=== PATIENT | female | born 1965 | race Caucasian/White ===

== ENCOUNTER 2021-09-02 14:15 | Outpatient (REF) | payer OTHER, SELFPAY ==
[2021-09-02 15:54] LABS: Binax Internal Control QC Valid; Binax Now Covid-19 Ag Negative (Negative)
== END 2021-09-02 14:16 | disposition home or self-care (01) ==
LOC: HO.LAB 14:15
PROVIDERS: Visit Provider Internal Medicine
DX: Z20.822 Contact with and (suspected) exposure to COVID-19 (principal)
CPT/HCPCS: C9803

== ENCOUNTER 2022-03-17 11:59 | Emergency (ER) | payer OTHER, SELFPAY ==
--- NOTE | ~2022-03-17 | XR_ITS ---
EXAMINATION: XR FOOT, LEFT CLINICAL INFORMATION: Left great toe pain status post bunion surgery COMPARISON: None TECHNIQUE: AP, lateral, and oblique views of the left foot. FINDINGS: Postsurgical changes of the first metatarsophalangeal joint with surgical fixation screw involving the first metatarsal distal metadiaphysis. The distal portion of the screw demonstrates extraosseous placement pointing volar. Plantar calcaneal heel spur. Joint spaces and alignment are maintained. Soft tissue swelling greatest at the dorsum of the midfoot. XR/XR foot LT 2V IMPRESSION: 1. Postsurgical changes of the first metatarsophalangeal joint with surgical fixation screw involving the first metatarsal distal metadiaphysis. The distal portion of the screw demonstrates extraosseous placement pointing volar. 2. Soft tissue swelling greatest at the dorsum of the midfoot.
[2022-03-17 12:02] VITALS: BP 118/78; PULSE 98; O2SAT 96
[2022-03-17 12:10] VITALS: BP 121/69; PULSE 88; RESP 16; TEMP 35.8; O2SAT 99; BMI 29.8
--- NOTE | 2022-03-17 12:20 | ED.SKABFB ---
HPI - Skin/Abscess/Foreign Bdy General Chief complaint: Skin/Abscess/Foreign Body Stated complaint: left foot pain Source: patient Mode of arrival: ambulatory Limitations: no limitations History of Present Illness HPI narrative: 56-year-old female sent from [facility] for evaluation of left big toe. Patient had left big toe bunion removal 4 weeks ago and followed at [facility]. Patient was placed on antibiotics and finished doxycycline 4 days ago. Patient sent from [facility] for evaluation of wound. patient denies any recent trauma, leg swelling, calf pain, chest pain or shortness of breath. Related Data Previous Rx's Medication Instructions Recorded clindamycin HCl 300 mg capsule 300 mg PO Q6H 7 days #28 caps 03/17/22 Allergies Allergy/AdvReac Type Severity Reaction Status Date / Time aspirin [ASA] Allergy Anaphylaxis Verified 03/17/22 12:18 Penicillins Allergy Anaphylaxis Verified 03/17/22 12:18 Sulfa (Sulfonamide Allergy Difficulty Verified 03/17/22 12:18 Antibiotics) Breathing Review of Systems Review of Systems: Left big toe pain. Yes all other systems are reviewed and are negative [facility] Social History Social History Advance Directives: No Advance Directives Information Provided: No Physical Exam Vital Signs: Vital Signs: Last Vital Signs Temp 96.3 F L 03/17/22 14:08 Pulse 83 03/17/22 15:14 Resp 16 03/17/22 15:14 BP 127/77 03/17/22 15:14 Pulse Ox 97 03/17/22 15:14 O2 Del Method 03/17/22 15:14 BMI result Body Mass Index 29.8 Const: General: cooperative, healthy appearing, comfortable, no acute distress, well developed, alert and awake Orientation/consciousness: patient oriented x3 HEENT: Head: Yes normal to inspection, Yes No palpable skull fracture present, Yes normocephalic, Yes atraumatic and No abrasion Eyes: General: appearance normal, both eyes and all related structures Neck: Neck: Yes normal visual inspection, Yes full ROM, Yes no lymphadenopathy, Yes no meningeal signs, Yes trachea midline, Yes supple, No anterior neck swelling and No tender Chest: Chest palpation & inspection: normal inspection of the chest and normal palpation of entire chest wall Resp: Effort & Inspection: normal respiratory effort and able to speak in complete sentences Auscultation: clear to auscultation bilaterally Cardio: Jugular venous distension: no JVD Heart sounds: S1 normal heart sound present and S2 normal heart sound present GI: Inspection: Yes normal to inspection and No abdominal wall ecchymosis Palpation (GI): Soft to palpation, not firm, nontender, no guarding and not rigid : General: No CVA tenderness and Yes no CVA tenderness Back/Spine/Pelvis: Back: no CVA tenderness, No CVA tenderness and No back tenderness Skin: General skin exam: no rashes or lesions noted and elasticity normal Neuro: General: patient oriented x3, gait normal, no meningeal signs and CN's II-XI intact bilaterally Cranial nerves: Yes CN's II-XII intact bilaterally Extrem: Other: Negative for any fluctulance. Negative for Bright red hot erythema. Vascular/motor/nerve exam intact. Area where bunion was removed negative for fluctuance has expectant ecchymotic erythema from surgery. No mass or fluctuance Psych: Appearance: grossly normal, well kempt and not disheveled Course Course Course Narrative: Basic labs foot x-ray ESR CRP ordered. Reevaluation(s) Reevaluation #1: Labs are normal. Negative ESR CRP. X-ray negative for osteomyelitis. Mild displacement of screw. Patient follow-up with outpatient for screw fixation with her surgeon. No need for admission for IV antibiotics. Patient labs and vital sign does not indicate SIRS. Patient's states foot erythema has actuattly improved. Due to still having some warmth will discharge with clindamycin. Time: 15:15 MDM - Skin/Abscess/Foreign Bdy MDM Narrative Medical decision making narrative: Wound infection Lab Data Result diagrams: 03/17/22 13:09 03/17/22 13:09 Labs: Lab Results 03/17/22 03/17/22 03/17/22 Range/Units 13:09 13:09 13:09 WBC 7.7 (4.8-10.8) X10*3/uL RBC 4.12 L (4.20-5.50) X10*6/uL Hgb 12.0 (12.0-16.0) g/dl Hct 37.0 (37.0-47.0) % MCV 89.8 (80.0-98.0) fL MCH 29.1 (27.0-33.0) pg MCHC 32.4 (31.0-35.0) g/dl RDW 13.1 (11.0-16.0) % Plt Count 247 (160-400) X10*3/uL MPV 10.3 (9.4-12.3) fL Immature Gran % (Auto) 0.3 (0.0-0.4) % Neut % (Auto) 64.1 (45-73) % Lymph % (Auto) 29.1 (20-40) % Jenkins % (Auto) 5.3 (2-11) % Eos % (Auto) 0.8 (0-4) % Baso % (Auto) 0.4 (0-2) % Lymph # (Auto) 2.2 (1.2-4.9) X10*3/uL Jenkins # (Auto) 0.4 (0.1-1.2) X10*3/uL Eos # (Auto) 0.1 (0.0-0.4) X10*3/uL Baso # (Auto) 0.0 (0.0-0.2) X10*3/uL Abs Immat Gran (auto) 0.02 (0.00-0.03) X10*3/uL Absolute Neuts (auto) 4.9 (2.0-8.3) x10*3/uL Absolute Nucleated RBC 0.000 (0.0-0.012) X10*3/uL Nucleated RBC % (auto) 0.0 (0.0-0.2) /100WBC ESR 14 (0-20) MM/HR Sodium 145 (135-145) mmol/L Potassium 4.3 (3.3-5.1) mmol/L Chloride 107 (96-108) mmol/L Carbon Dioxide 30 H (22-29) mmol/L Anion Gap 12 (12-20) BUN 14 (9-16) mg/dL Creatinine 0.66 (0.5-1.4) mg/dL Estim Creat Clear Calc 92.1 Estimated GFR > 60 Random Glucose 89 (60-115) mg/dL Calcium 9.1 (8.4-10.2) mg/dL Total Bilirubin 0.3 (0.0-1.0) mg/dL AST 14 (5-31) U/L ALT 17 (0-31) U/L Alkaline Phosphatase 93 (39-117) U/L C-Reactive Protein 0.25 (< or = 0.50) mg/dL Total Protein 6.4 L (6.5-8.0) g/dL Albumin 4.2 (3.5-5.0) g/dL Discharge Plan Discharge Clinical Impression: Wound cellulitis Patient Disposition: Home, Self-Care Instructions: Wound Infection (ED), Cellulitis (ED) Additional Instructions: Your blood work came back normal. Your vital signs are stable. X-ray came back negative for infection the bone. You have mild displacement of screw follow-up with your orthopedic surgeon outpatient at [facility]. Wound does not require IV antibiotics. He will be discharged with clindamycin. Return to the ED for any bright red worsening redness, hotness, increased swelling, pus discharge, foul odor, leg swelling, calf pain, chest pain, shortness of breath, or any other concerning symptoms. Please follow up with your clinical material handler and orthopedic. Prescriptions: New clindamycin HCl 300 mg capsule 300 mg PO Q6H 7 Days Qty: 28 0RF Interventions: ED Discharge Assessment Last Done: 03/17/22 17:04 Discharge Date/Time: 03/17/22 17:05 Print Language: Urdu
[2022-03-17 13:14] LABS: MANUAL DIFF FLAG NO
[2022-03-17 13:16] LABS: Basophils Percent Auto 0.4 % (0-2); Eosinophils Absolute Auto 0.1 X10*3/uL (0.0-0.4); Eosinophils Percent Auto 0.8 % (0-4); Imm Gran Abs Auto 0.02 X10*3/uL (0.00-0.03); Imm Gran Pct Auto 0.3 % (0.0-0.4); Lymphocytes Absolute Auto 2.2 X10*3/uL (1.2-4.9); Lymphocytes Percent Auto 29.1 % (20-40); Mean Corpuscular HGB Conc 32.4 g/dl (31.0-35.0); Mean Corpuscular Hemoglobin 29.1 pg (27.0-33.0); Mean Corpuscular Volume 89.8 fL (80.0-98.0); Mean Platelet Volume 10.3 fL (9.4-12.3); Monocytes Absolute Auto 0.4 X10*3/uL (0.1-1.2); Monocytes Percent Auto 5.3 % (2-11); Neutrophils Absolute Auto 4.9 x10*3/uL (2.0-8.3); Neutrophils Percent Auto 64.1 % (45-73); Platelet Count 247 X10*3/uL (160-400); Red Blood Count 4.12 X10*6/uL (4.20-5.50); Red Cell Distribution Width 13.1 % (11.0-16.0); White Blood Count 7.7 X10*3/uL (4.8-10.8)
[2022-03-17 13:39] LABS: Alanine Aminotransferase 17 U/L (0-31); Albumin Level 4.2 g/dL (3.5-5.0); Alkaline Phosphatase 93 U/L (39-117); Anion Gap 12 (12-20); Aspartate Amino Transferase 14 U/L (5-31); Bilirubin Total 0.3 mg/dL (0.0-1.0); Blood Urea Nitrogen 14 mg/dL (9-16); C Reactive Protein 0.25 mg/dL (< or = 0.50); Calcium 9.1 mg/dL (8.4-10.2); Carbon Dioxide 30 mmol/L (22-29); Chloride 107 mmol/L (96-108); Creatinine Clr Calc Pharmacy 92.1; Estimated Glomerular Filt Rate > 60; Glucose Random 89 mg/dL (60-115); Potassium 4.3 mmol/L (3.3-5.1); Sodium 145 mmol/L (135-145); Total Protein 6.4 g/dL (6.5-8.0)
[2022-03-17 13:52] LABS: Erythrocyte Sedimentation Rate 14 MM/HR (0-20)
[2022-03-17 14:08] VITALS: BP 124/68; PULSE 80; RESP 16; TEMP 35.7; O2SAT 98
[2022-03-17 15:14] VITALS: BP 127/77; PULSE 83; RESP 16; O2SAT 97
== END 2022-03-17 17:05 | disposition home or self-care (01) ==
PROVIDERS: Physician Assistant; Emergency Provider Student in an Organized Health Care Education/Training Program; PCP Family Medicine
DX: L03.032 Cellulitis of left toe (principal); M79.672 Pain in left foot; Z79.899 Other long term (current) drug therapy
CPT/HCPCS: 36415; 73620; 80053; 85025; 85652; 86140; 99283

== ENCOUNTER 2022-09-16 16:35 | Inpatient (IN) | payer OTHER, SELFPAY ==
--- NOTE | ~2022-09-16 | CT_ITS ---
EXAMINATION: CT HEAD WITHOUT CONTRAST CLINICAL INFORMATION: Fainting. COMPARISON: None TECHNIQUE: Contiguous axial imaging was performed from the skull base to vertex without intravenous administration of contrast. This CT examination was performed using dose optimization techniques as appropriate, variously including the following: *Automated exposure control *Adjustment of mA and/or kV according to patient size (this includes techniques or standardized protocols for targeted exams where dose is matched to indication/reason for exam; i.e. extremities or head) *Use of iterative reconstruction technique DLP: 682 mGy-cm FINDINGS: There is no acute intra-axial, extra-axial bleed, masses or midline shift. There is no acute infarction evolution. There is no edema. The lateral ventricles are symmetrical in size and configuration without enlargement. Bone windows reveal no calvarial abnormality. There is no scalp soft tissue abnormality. Bilateral paranasal sinuses and mastoid air cells are well-aerated. CT/CT head/brain wo IV con IMPRESSION: No acute intracranial process seen.
[2022-09-16 16:45] VITALS: BP 104/70; PULSE 87; RESP 16; TEMP 36.6; O2SAT 96
[2022-09-16 16:49] VITALS: BMI 33.6
--- NOTE | 2022-09-16 16:53 | ECG_ITS ---
Test Reason : ANTIPSYCHOTIC USAGE Blood Pressure : / mmHG Vent. Rate : 077 BPM Atrial Rate : 077 BPM P-R Int : 156 ms QRS Dur : 090 ms QT Int : 388 ms P-R-T Axes : 037 -44 -04 degrees QTc Int : 439 ms Normal sinus rhythm Left axis deviation Possible Anterolateral infarct , age undetermined Abnormal ECG No previous ECGs available Referred By: Generic ED Physician Electronically Signed By:FELIX HEBERT
--- NOTE | 2022-09-16 16:58 | ED_ITS ---
HPI - Psych General Chief Complaint: Psychiatric Symptoms <Miladis Stack NP - Last Filed: 09/16/22 23:28> Stated Complaint: section 12 SI + <Miladis Stack NP - Last Filed: 09/16/22 23:28> Time Seen by Provider: 09/16/22 16:56 <Miladis Stack NP - Last Filed: 09/16/22 23:28> Source: patient and EMS <Miladis Stack NP - Last Filed: 09/16/22 23:28> Mode of arrival: EMS <Miladis Stack NP - Last Filed: 09/16/22 23:28> Limitations: no limitations <Miladis Stack NP - Last Filed: 09/16/22 23:28> History of Present Illness HPI Narrative: 56-year-old female presents via EMS under section 12 in the community with suicidal ideation and plan to cut herself with a knife, with command hallucinations. <Miladis Stack NP - Last Filed: 09/16/22 23:28> MD complaint: suicidal ideation, feels depressed and hallucinations <Miladis Stack NP - Last Filed: 09/16/22 23:28> Onset (ago): unknown <Miladis Stack NP - Last Filed: 09/16/22 23:28> Duration: constant <Miladis Stack NP - Last Filed: 09/16/22 23:28> History of same: Yes <Miladis Stack NP - Last Filed: 09/16/22 23:28> Relieving factors: none <Miladis Stack NP - Last Filed: 09/16/22 23:28> Associated psychiatric symptoms: depression, suicidal ideation and auditory hallucinations <Miladis Stack NP - Last Filed: 09/16/22 23:28> Treatments prior to arrival: placed on mental health hold <Miladis Stack NP - Last Filed: 09/16/22 23:28> If self harm: admits thoughts of self harm and has plan <Miladis Stack NP - Last Param ed: 09/16/22 23:28> Related Data Home Medications: Home Medications Medication Instructions Recorded Confirmed aripiprazole 20 mg tablet 1 tab PO BEDTIME depressive 09/16/22 09/17/22 disorder benztropine 1 mg tablet 1 tab PO TID 09/16/22 09/17/22 buspirone 10 mg tablet 1 tab PO BID 09/16/22 09/16/22 desvenlafaxine succinate 50 mg 1 tab PO DAILY 09/16/22 09/17/22 tablet,extended release 24 hr gabapentin 300 mg capsule 1 cap PO TID PRN Anxiety 09/16/22 09/16/22 mirtazapine 30 mg tablet 1 tab PO BEDTIME 09/16/22 09/16/22 oxcarbazepine 300 mg tablet 1 tab PO BID 09/16/22 09/16/22 prazosin 1 mg capsule 2 cap PO BEDTIME 09/16/22 09/16/22 prazosin 5 mg capsule 1 cap PO BEDTIME 09/16/22 09/16/22 risperidone 0.5 mg tablet 1 tab PO BID PRN Anxiety 09/17/22 09/17/22 <Miladis Stack NP - Last Filed: 09/16/22 23:28> Allergies/Adverse Reactions: Allergies Allergy/AdvReac Type Severity Reaction Status Date / Time aspirin [ASA] Allergy Anaphylaxis Verified 03/17/22 12:18 Penicillins Allergy Anaphylaxis Verified 03/17/22 12:18 Sulfa (Sulfonamide Allergy Difficulty Verified 03/17/22 12:18 Antibiotics) Breathing <TRAY Hutchison Last Filed: 09/16/22 23:28> Review of Systems Review of Systems: Constitutional: No Fever, No Chills Cardiovascular: No Chest Pain, No SOB Respiratory: No Cough, No Dyspnea Gastrointestinal: No Nausea, No Vomiting, No Diarrhea, No abdominal Pain Genitourinary: No Dysuria, No Hematuria Musculoskeletal: Note joint pain, No Myalgias, No Joint Swelling Skin: No Skin lacerations, No rash Neuro: No Weakness, No Numbness,No Dizziness, No Headache Psych: Positive suicidal ideation, positive auditory hallucinations, positive depression, positive anxiety <TRAY Hutchison Last Filed: 09/16/22 23:28> Yes all other systems are reviewed and are negative <TRAY Hutchison Last Filed: 09/16/22 23:28> PMFSH Past Medical History Attestation statement: The following information was validated with the patient. <TRAY Hutchison Last Filed: 09/16/22 23:28> Source: old records reviewed <Miladis Stack NP - Last Filed: 09/16/22 23:28> Social History Social History: Social History Alcohol intake: unknown Smoked in Last 30 Days: No Use of substances other than those prescribed or required for medical reasons: Unknown Advance Directives: No Advance Directives Information Provided: No Patient : No <Miladis Stack NP - Last Filed: 09/16/22 23:28> Physical Exam Vital Signs: Vital Signs: Last Vital Signs Temp 97.6 F 09/17/22 06:53 Pulse 88 09/17/22 06:53 Resp 16 09/17/22 06:53 BP 143/93 H 09/17/22 06:53 Pulse Ox 97 09/17/22 06:53 O2 Del Method 09/17/22 06:53 BMI result Body Mass Index 33.6 <Miladis Stack NP - Last Filed: 09/16/22 23:28> Vital Signs: Last Vital Signs Temp 97.6 F 09/17/22 06:53 Pulse 88 09/17/22 06:53 Resp 16 09/17/22 06:53 BP 143/93 H 09/17/22 06:53 Pulse Ox 97 09/17/22 06:53 O2 Del Method 09/17/22 06:53 BMI result Body Mass Index 33.6 <True Montano MD - Last Filed: 09/17/22 07:56> Appearance: Alert. Oriented X3. Flat affect. Eyes: Pupils equal, round and reactive to light. ENT: Pharynx normal. Neck: Normal inspection. Neck supple. CVS: Normal heart rate and rhythm. Pulses normal. Respiratory: No respiratory distress. Breath sounds normal. Abdomen: Soft and nontender. Skin: Skin warm and dry. Normal skin color. Normal skin turgor. Extremities: No lower extremity edema. Gait well-balanced well coordinated. Neuro: No motor deficit. No sensory deficit. Cranial nerves 2-12 intact <Miladis Stack NP - Last Filed: 09/16/22 23:28> Course Course Course Narrative: 56-year-old female presents via EMS on Section 12 from the community with suicidal ideation and plan to kill herself with a knife with command hallucinations. Patient has a flat affect, is only answering questions with yes or no answers. Patient has not had any prior admissions to this facility however is on significant psychiatric medications aripiprazole, benztropine, desvenlafaxine, prazosin, BuSpar, and gabapentin. Plan of care is for labs, and to crisis consult 23:25 patient is medically cleared. Patient is a Section 12 bed search. Physician observation at this time. <Miladis Stack NP - Last Filed: 09/16/22 23:28> Reevaluation(s) Reevaluation #1: Sep 17 07:56 remain stable no event reported by staff, she is on a Section 12 inpatient level of care <True Montano MD - Last Filed: 09/17/22 07:56> Time: 07:56 <True Montano MD - Last Filed: 09/17/22 07:56> Medications Administered Generic Name Dose Route Start Last Admin Trade Name Ingris PRN Reason Stop Dose Admin Aripiprazole 20 mg 09/16/22 21:45 09/16/22 22:16 Aripiprazole 20 Mg Tablet PO 20 mg BEDTIME MALLORY Administration Benztropine Mesylate 1 mg 09/16/22 21:45 09/16/22 22:14 Benztropine Mesylate 1 Mg Tablet PO 1 mg TID MALLORY Administration Buspirone HCl 10 mg 09/16/22 21:45 09/16/22 22:14 Buspirone Hcl 10 Mg Tablet PO 10 mg BID MALLORY Administration Mirtazapine 30 mg 09/16/22 21:45 09/16/22 22:14 Mirtazapine 30 Mg Tablet PO 30 mg BEDTIME MALLORY Administration Oxcarbazepine 300 mg 09/16/22 21:45 09/16/22 22:14 Oxcarbazepine 300 Mg Tablet PO 300 mg BID MALLORY Administration Prazosin HCl 2 mg 09/16/22 21:45 09/16/22 22:14 Prazosin Hcl 1 Mg Capsule PO 2 mg BEDTIME MALLORY Administration Protocol Prazosin HCl 5 mg 09/16/22 21:45 09/16/22 22:14 Prazosin Hcl 5 Mg Capsule PO 5 mg BEDTIME MALLORY Administration Protocol <Miladis Stack NP - Last Filed: 09/16/22 23:28> Medications Administered Generic Name Dose Route Start Last Admin Trade Name Ingris PRN Reason Stop Dose Admin Aripiprazole 20 mg 09/16/22 21:45 09/16/22 22:16 Aripiprazole 20 Mg Tablet PO 20 mg BEDTIME MALLORY Administration Benztropine Mesylate 1 mg 09/16/22 21:45 09/16/22 22:14 Benztropine Mesylate 1 Mg Tablet PO 1 mg TID MALLORY Administration Buspirone HCl 10 mg 09/16/22 21:45 09/16/22 22:14 Buspirone Hcl 10 Mg Tablet PO 10 mg BID MALLORY Administration Mirtazapine 30 mg 09/16/22 21:45 09/16/22 22:14 Mirtazapine 30 Mg Tablet PO 30 mg BEDTIME MALLORY Administration Oxcarbazepine 300 mg 09/16/22 21:45 09/16/22 22:14 Oxcarbazepine 300 Mg Tablet PO 300 mg BID MALLORY Administration Prazosin HCl 2 mg 09/16/22 21:45 09/16/22 22:14 Prazosin Hcl 1 Mg Capsule PO 2 mg BEDTIME MALLORY Administration Protocol Prazosin HCl 5 mg 09/16/22 21:45 09/16/22 22:14 Prazosin Hcl 5 Mg Capsule PO 5 mg BEDTIME MALLORY Administration Protocol <True Montano MD - Last Filed: 09/17/22 07:56> Medical Decision Making Differential Diagnosis Differential Diagnoses: The differential diagnosis associated with the presentation includes <Miladis Stack NP - Last Filed: 09/16/22 23:28> Psychosis, suicidal ideation, depression, auditory hallucinations <Miladis Stack NP - Last Filed: 09/16/22 23:28> Admission/Observation Consideration of admission/observation: Escalation of care including admission/observation considered <Miladis Stack NP - Last Filed: 09/16/22 23:28> Plan of care is for admission section 12 bed search <Miladis Stack NP - Last Filed: 09/16/22 23:28> Consult Healthcare Provider Management of the patient was discussed with: Behavioral Health Provider <Miladis Stack NP - Last Filed: 09/16/22 23:28> Lab Data MDM Lab Attestation statement: I reviewed the patient's lab results. <Miladis Stack NP - Last Filed: 09/16/22 23:28> Result Diagrams: 09/16/22 17:17 09/16/22 17:17 <Miladis Stack NP - Last Filed: 09/16/22 23:28> Labs: Lab Results 09/16/22 09/16/22 09/16/22 Range/Units 17:17 17:17 17:17 WBC 6.9 (4.8-10.8) X10*3/uL RBC 4.35 (4.20-5.50) X10*6/uL Hgb 12.8 (12.0-16.0) g/dl Hct 38.2 (37.0-47.0) % MCV 87.8 (80.0-98.0) fL MCH 29.4 (27.0-33.0) pg MCHC 33.5 (31.0-35.0) g/dl RDW 13.0 (11.0-16.0) % Plt Count 270 (160-400) X10*3/uL MPV 9.9 (9.4-12.3) fL Immature Gran % (Auto) 0.1 (0.0-0.4) % Neut % (Auto) 50.3 (45-73) % Lymph % (Auto) 40.1 H (20-40) % [place] % (Auto) 8.0 (2-11) % Eos % (Auto) 1.2 (0-4) % Baso % (Auto) 0.3 (0-2) % Lymph # (Auto) 2.8 (1.2-4.9) X10*3/uL [place] # (Auto) 0.6 (0.1-1.2) X10*3/uL Eos # (Auto) 0.1 (0.0-0.4) X10*3/uL Baso # (Auto) 0.0 (0.0-0.2) X10*3/uL Abs Immat Gran (auto) 0.01 (0.00-0.03) X10*3/uL Absolute Neuts (auto) 3.5 (2.0-8.3) x10*3/uL Absolute Nucleated RBC 0.000 (0.0-0.012) X10*3/uL Nucleated RBC % (auto) 0.0 (0.0-0.2) /100WBC Sodium 141 (135-145) mmol/L Potassium 4.3 (3.3-5.1) mmol/L Chloride 104 (96-108) mmol/L Carbon Dioxide 29 (22-29) mmol/L Anion Gap 12 (12-20) BUN 17 H (9-16) mg/dL Creatinine 0.73 (0.5-1.4) mg/dL Estim Creat Clear Calc 88.4 Estimated GFR > 60 Random Glucose 88 (60-115) mg/dL Calcium 9.2 (8.4-10.2) mg/dL Total Bilirubin 0.3 (0.0-1.0) mg/dL Direct Bilirubin < 0.2 (0.0-0.5) mg/dL AST 14 (5-31) U/L ALT 18 (0-31) U/L Alkaline Phosphatase 104 (39-117) U/L Total Protein 6.4 L (6.5-8.0) g/dL Albumin 4.2 (3.5-5.0) g/dL Lipase 32 (8-78) U/L Urine Opiates Screen (Not Detect) Urine Fentanyl Screen (Not Detect) Ur Barbiturates Screen (Not Detect) Ur Phencyclidine Scrn (Not Detect) Ur Amphetamines Screen (Not Detect) U Benzodiazepines Scrn (Not Detect) Urine Cocaine Screen (Not Detect) U Marijuana (THC) Screen (Not Detect) Ethyl Alcohol mg/dL COVID-19 ([facility]) Negative (Negative) COVID-19 Clin Com See Note 09/16/22 09/16/22 Range/Units 17:17 17:17 WBC (4.8-10.8) X10*3/uL RBC (4.20-5.50) X10*6/uL Hgb (12.0-16.0) g/dl Hct (37.0-47.0) % MCV (80.0-98.0) fL MCH (27.0-33.0) pg MCHC (31.0-35.0) g/dl RDW (11.0-16.0) % Plt Count (160-400) X10*3/uL MPV (9.4-12.3) fL Immature Gran % (Auto) (0.0-0.4) % Neut % (Auto) (45-73) % Lymph % (Auto) (20-40) % [place] % (Auto) (2-11) % Eos % (Auto) (0-4) % Baso % (Auto) (0-2) % Lymph # (Auto) (1.2-4.9) X10*3/uL [place] # (Auto) (0.1-1.2) X10*3/uL Eos # (Auto) (0.0-0.4) X10*3/uL Baso # (Auto) (0.0-0.2) X10*3/uL Abs Immat Gran (auto) (0.00-0.03) X10*3/uL Absolute Neuts (auto) (2.0-8.3) x10*3/uL Absolute Nucleated RBC (0.0-0.012) X10*3/uL Nucleated RBC % (auto) (0.0-0.2) /100WBC Sodium (135-145) mmol/L Potassium (3.3-5.1) mmol/L Chloride (96-108) mmol/L Carbon Dioxide (22-29) mmol/L Anion Gap (12-20) BUN (9-16) mg/dL Creatinine (0.5-1.4) mg/dL Estim Creat Clear Calc Estimated GFR Random Glucose (60-115) mg/dL Calcium (8.4-10.2) mg/dL Total Bilirubin (0.0-1.0) mg/dL Direct Bilirubin (0.0-0.5) mg/dL AST (5-31) U/L ALT (0-31) U/L Alkaline Phosphatase (39-117) U/L Total Protein (6.5-8.0) g/dL Albumin (3.5-5.0) g/dL Lipase (8-78) U/L Urine Opiates Screen Not Detected (Not Detect) Urine Fentanyl Screen Not Detected (Not Detect) Ur Barbiturates Screen Not Detected (Not Detect) Ur Phencyclidine Scrn Not Detected (Not Detect) Ur Amphetamines Screen Not Detected (Not Detect) U Benzodiazepines Scrn Not Detected (Not Detect) Urine Cocaine Screen Not Detected (Not Detect) U Marijuana (THC) Screen Not Detected (Not Detect) Ethyl Alcohol < 10 mg/dL COVID-19 ([facility]) (Negative) COVID-19 Clin Com <Miladis AmezquitaTRAY traore - Last Filed: 09/16/22 23:28> Lab Results 09/16/22 09/16/22 09/16/22 Range/Units 17:17 17:17 17:17 WBC 6.9 (4.8-10.8) X10*3/uL RBC 4.35 (4.20-5.50) X10*6/uL Hgb 12.8 (12.0-16.0) g/dl Hct 38.2 (37.0-47.0) % MCV 87.8 (80.0-98.0) fL MCH 29.4 (27.0-33.0) pg MCHC 33.5 (31.0-35.0) g/dl RDW 13.0 (11.0-16.0) % Plt Count 270 (160-400) X10*3/uL MPV 9.9 (9.4-12.3) fL Immature Gran % (Auto) 0.1 (0.0-0.4) % Neut % (Auto) 50.3 (45-73) % Lymph % (Auto) 40.1 H (20-40) % [place] % (Auto) 8.0 (2-11) % Eos % (Auto) 1.2 (0-4) % Baso % (Auto) 0.3 (0-2) % Lymph # (Auto) 2.8 (1.2-4.9) X10*3/uL [place] # (Auto) 0.6 (0.1-1.2) X10*3/uL Eos # (Auto) 0.1 (0.0-0.4) X10*3/uL Baso # (Auto) 0.0 (0.0-0.2) X10*3/uL Abs Immat Gran (auto) 0.01 (0.00-0.03) X10*3/uL Absolute Neuts (auto) 3.5 (2.0-8.3) x10*3/uL Absolute Nucleated RBC 0.000 (0.0-0.012) X10*3/uL Nucleated RBC % (auto) 0.0 (0.0-0.2) /100WBC Sodium 141 (135-145) mmol/L Potassium 4.3 (3.3-5.1) mmol/L Chloride 104 (96-108) mmol/L Carbon Dioxide 29 (22-29) mmol/L Anion Gap 12 (12-20) BUN 17 H (9-16) mg/dL Creatinine 0.73 (0.5-1.4) mg/dL Estim Creat Clear Calc 88.4 Estimated GFR > 60 Random Glucose 88 (60-115) mg/dL Calcium 9.2 (8.4-10.2) mg/dL Total Bilirubin 0.3 (0.0-1.0) mg/dL Direct Bilirubin < 0.2 (0.0-0.5) mg/dL AST 14 (5-31) U/L ALT 18 (0-31) U/L Alkaline Phosphatase 104 (39-117) U/L Total Protein 6.4 L (6.5-8.0) g/dL Albumin 4.2 (3.5-5.0) g/dL Lipase 32 (8-78) U/L Urine Opiates Screen (Not Detect) Urine Fentanyl Screen (Not Detect) Ur Barbiturates Screen (Not Detect) Ur Phencyclidine Scrn (Not Detect) Ur Amphetamines Screen (Not Detect) U Benzodiazepines Scrn (Not Detect) Urine Cocaine Screen (Not Detect) U Marijuana (THC) Screen (Not Detect) Ethyl Alcohol mg/dL COVID-19 ([facility]) Negative (Negative) COVID-19 Clin Com See Note 09/16/22 09/16/22 Range/Units 17:17 17:17 WBC (4.8-10.8) X10*3/uL RBC (4.20-5.50) X10*6/uL Hgb (12.0-16.0) g/dl Hct (37.0-47.0) % MCV (80.0-98.0) fL MCH (27.0-33.0) pg MCHC (31.0-35.0) g/dl RDW (11.0-16.0) % Plt Count (160-400) X10*3/uL MPV (9.4-12.3) fL Immature Gran % (Auto) (0.0-0.4) % Neut % (Auto) (45-73) % Lymph % (Auto) (20-40) % [place] % (Auto) (2-11) % Eos % (Auto) (0-4) % Baso % (Auto) (0-2) % Lymph # (Auto) (1.2-4.9) X10*3/uL [place] # (Auto) (0.1-1.2) X10*3/uL Eos # (Auto) (0.0-0.4) X10*3/uL Baso # (Auto) (0.0-0.2) X10*3/uL Abs Immat Gran (auto) (0.00-0.03) X10*3/uL Absolute Neuts (auto) (2.0-8.3) x10*3/uL Absolute Nucleated RBC (0.0-0.012) X10*3/uL Nucleated RBC % (auto) (0.0-0.2) /100WBC Sodium (135-145) mmol/L Potassium (3.3-5.1) mmol/L Chloride (96-108) mmol/L Carbon Dioxide (22-29) mmol/L Anion Gap (12-20) BUN (9-16) mg/dL Creatinine (0.5-1.4) mg/dL Estim Creat Clear Calc Estimated GFR Random Glucose (60-115) mg/dL Calcium (8.4-10.2) mg/dL Total Bilirubin (0.0-1.0) mg/dL Direct Bilirubin (0.0-0.5) mg/dL AST (5-31) U/L ALT (0-31) U/L Alkaline Phosphatase (39-117) U/L Total Protein (6.5-8.0) g/dL Albumin (3.5-5.0) g/dL Lipase (8-78) U/L Urine Opiates Screen Not Detected (Not Detect) Urine Fentanyl Screen Not Detected (Not Detect) Ur Barbiturates Screen Not Detected (Not Detect) Ur Phencyclidine Scrn Not Detected (Not Detect) Ur Amphetamines Screen Not Detected (Not Detect) U Benzodiazepines Scrn Not Detected (Not Detect) Urine Cocaine Screen Not Detected (Not Detect) U Marijuana (THC) Screen Not Detected (Not Detect) Ethyl Alcohol < 10 mg/dL COVID-19 ([facility]) (Negative) COVID-19 Clin Com <True Montano MD - Last Filed: 09/17/22 07:56> Independent Interpretation I performed an independent interpretation of an: EKG <Miladis Stack NP - Last Filed: 09/16/22 23:28> Interpretation: Normal sinus rhythm Left axis deviation Possible Anterolateral infarct , age undetermined Abnormal ECG No previous ECGs available Vent. rate 77 BPM OH interval 156 ms QRS duration 90 ms QT/QTc 388/439 ms P-R-T axes 37 -44 -4 16-SEP-2022 17:37:07 <Miladis tSack NP - Last Filed: 09/16/22 23:28> External Record Review External record reviewed: Outpatient record <Miladis Stack NP - Last Filed: 09/16/22 23:28> Social Determinants Patient?s care significantly limited by Social Determinants of Health including: Other Social Determinant of Health <Miladis Stack NP - Last Filed: 09/16/22 23:28> Discharge Plan Discharge Clinical Impression: Acute psychosis, Depression <Miladis Stack NP - Last Filed: 09/16/22 23:28> Patient Disposition: Still a Patient <Miladis Stack NP - Last Filed: 09/16/22 23:28> Prescriptions: No Action prazosin 1 mg capsule 2 cap PO BEDTIME oxcarbazepine 300 mg tablet 1 tab PO BID prazosin 5 mg capsule 1 cap PO BEDTIME mirtazapine 30 mg tablet 1 tab PO BEDTIME buspirone 10 mg tablet 1 tab PO BID benztropine 1 mg tablet 1 tab PO TID gabapentin 300 mg capsule 1 cap PO TID PRN (Reason: Anxiety) aripiprazole 20 mg tablet 1 tab PO BEDTIME desvenlafaxine succinate 50 mg tablet extended release 24 hr 1 tab PO DAILY risperidone 0.5 mg tablet 1 tab PO BID PRN (Reason: Anxiety) <Miladis Stack NP - Last Filed: 09/16/22 23:28> Interventions: [place]-Suicide Risk Severity Scale Last Done: 09/17/22 05:55 <Miladis Stack NP - Last Filed: 09/16/22 23:28>
[2022-09-16 17:22] LABS: MANUAL DIFF FLAG NO
[2022-09-16 17:30] LABS: Basophils Percent Auto 0.3 % (0-2); Eosinophils Absolute Auto 0.1 X10*3/uL (0.0-0.4); Eosinophils Percent Auto 1.2 % (0-4); Hematocrit 38.2 % (37.0-47.0); Hemoglobin 12.8 g/dl (12.0-16.0); Imm Gran Abs Auto 0.01 X10*3/uL (0.00-0.03); Imm Gran Pct Auto 0.1 % (0.0-0.4); Lymphocytes Absolute Auto 2.8 X10*3/uL (1.2-4.9); Lymphocytes Percent Auto 40.1 % (20-40); Mean Corpuscular HGB Conc 33.5 g/dl (31.0-35.0); Mean Corpuscular Hemoglobin 29.4 pg (27.0-33.0); Mean Corpuscular Volume 87.8 fL (80.0-98.0); Mean Platelet Volume 9.9 fL (9.4-12.3); Monocytes Absolute Auto 0.6 X10*3/uL (0.1-1.2); Neutrophils Absolute Auto 3.5 x10*3/uL (2.0-8.3); Neutrophils Percent Auto 50.3 % (45-73); Platelet Count 270 X10*3/uL (160-400); Red Blood Count 4.35 X10*6/uL (4.20-5.50); White Blood Count 6.9 X10*3/uL (4.8-10.8)
[2022-09-16 17:42] LABS: Amphetamine Screen Urine Not Detected (Not Detect); Barbiturates, Urine Not Detected (Not Detect); Benzodiazepines Screen Urine Not Detected (Not Detect); Cannabinoid Screen Urine Not Detected (Not Detect); Cocaine Screen Urine Not Detected (Not Detect); Fentanyl, urine Not Detected (Not Detect); Opiate Screen Urine Not Detected (Not Detect); Phencyclidine Screen Urine Not Detected (Not Detect)
[2022-09-16 17:50] LABS: Alanine Aminotransferase 18 U/L (0-31); Albumin Level 4.2 g/dL (3.5-5.0); Alkaline Phosphatase 104 U/L (39-117); Anion Gap 12 (12-20); Aspartate Amino Transferase 14 U/L (5-31); Bilirubin Direct < 0.2 mg/dL (0.0-0.5); Bilirubin Total 0.3 mg/dL (0.0-1.0); Blood Urea Nitrogen 17 mg/dL (9-16); Calcium 9.2 mg/dL (8.4-10.2); Carbon Dioxide 29 mmol/L (22-29); Chloride 104 mmol/L (96-108); Creatinine Clr Calc Pharmacy 88.4; Estimated Glomerular Filt Rate > 60; Ethanol < 10 mg/dL; Glucose Random 88 mg/dL (60-115); Lipase 32 U/L (8-78); Potassium 4.3 mmol/L (3.3-5.1); Sodium 141 mmol/L (135-145); Total Protein 6.4 g/dL (6.5-8.0)
[2022-09-16 18:12] LABS: COVID-19 Test Negative (Negative); IDNOW Serial# BCCEAD1C
[2022-09-16] MEDS: busPIRone HCl 10 MG TABLET PO (22:14)
[2022-09-16] MEDS: Benztropine Mesylate 1 MG TABLET PO (22:14)
[2022-09-16] MEDS: Prazosin HCL 1 MG CAPSULE 2 MG PO (22:14)
[2022-09-16] MEDS: OXcarbazepine 300 MG TABLET PO (22:14)
[2022-09-16] MEDS: Prazosin HCL 5 MG CAPSULE PO (22:14)
[2022-09-16] MEDS: Mirtazapine 30 MG TABLET PO (22:14)
[2022-09-16] MEDS: ARIPiprazole 20 MG TABLET PO (22:16)
[2022-09-16 22:19] VITALS: BP 109/70; PULSE 69; RESP 17; TEMP 36.4; O2SAT 95
--- NOTE | 2022-09-17 06:00 | PC.NURSE ---
Patient slept though the night, no distress observed/reported, behavior appropriate and non concerning, patient was assessed by [facility] in the community/disposition is section 12 inpatient bed search, patient contracted fro the safety, med rec completed/medication compliant, VSS, will continue to monitor
[2022-09-17 06:53] VITALS: BP 143/93; PULSE 88; RESP 16; TEMP 36.4; O2SAT 97
--- NOTE | 2022-09-17 07:02 | PC.NURSE ---
Patient sleeping no distress noted will CTM
--- NOTE | 2022-09-17 07:24 | PHA.MEDREC ---
Pharmacy Consult ? Medication Reconciliation Pharmacy has completed the medication reconciliation. Reviewed med rec done by nursing
[2022-09-17] MEDS: busPIRone HCl 10 MG TABLET PO ×2 (08:07→20:20)
[2022-09-17] MEDS: Benztropine Mesylate 1 MG TABLET PO ×3 (08:07→20:17)
[2022-09-17] MEDS: OXcarbazepine 300 MG TABLET PO ×2 (08:07→20:17)
--- NOTE | 2022-09-17 08:09 | PC.NURSE ---
Patient awake behavior appropriate flat affect noted mostly yes no answers to questions no distress noted will CTM
[2022-09-17] MEDS: Prazosin HCL 5 MG CAPSULE PO (20:16)
[2022-09-17] MEDS: Prazosin HCL 1 MG CAPSULE 2 MG PO (20:16)
[2022-09-17] MEDS: Mirtazapine 30 MG TABLET PO (20:16)
[2022-09-17] MEDS: ARIPiprazole 20 MG TABLET PO (20:20)
[2022-09-17 20:23] VITALS: BP 120/79; PULSE 89; RESP 18; TEMP 37.1; O2SAT 95
[2022-09-18 05:41] VITALS: BP 146/94; PULSE 91; RESP 16; TEMP 36.8; O2SAT 98
--- NOTE | 2022-09-18 07:10 | PC.NURSE ---
Patient slept though the night, no distress observed/reported, behavior pleasant and non concerning, medication compliant, disposition per care team is section 12 inpatient bed search, VSS, will continue to monitor
[2022-09-18] MEDS: Benztropine Mesylate 1 MG TABLET PO ×3 (08:35→20:42)
[2022-09-18] MEDS: busPIRone HCl 10 MG TABLET PO ×2 (08:35→20:42)
[2022-09-18] MEDS: OXcarbazepine 300 MG TABLET PO ×2 (08:35→20:42)
[2022-09-18] MEDS: Gabapentin 300 MG CAPSULE PO (08:42)
--- NOTE | 2022-09-18 10:27 | PC.NURSE ---
PT WATCHING TV. BESEARCH CONTINUES. SHOWERED. CALM AND COOPERATIVE
--- NOTE | 2022-09-18 11:42 | MHC.CARE ---
[facility] inpt bedsearch exhausted.
[2022-09-18 20:00] VITALS: BP 147/87; PULSE 86; RESP 18; TEMP 36.2; O2SAT 95
[2022-09-18] MEDS: Prazosin HCL 5 MG CAPSULE PO (20:41)
[2022-09-18] MEDS: Mirtazapine 30 MG TABLET PO (20:42)
[2022-09-18] MEDS: Prazosin HCL 1 MG CAPSULE 2 MG PO (20:42)
[2022-09-18] MEDS: ARIPiprazole 20 MG TABLET PO (21:08)
[2022-09-19 04:43] VITALS: BP 143/84; PULSE 82; RESP 17; TEMP 36.3; O2SAT 98
[2022-09-19 07:31] VITALS: BP 125/74; PULSE 86; RESP 12; TEMP 36.9; O2SAT 98
[2022-09-19] MEDS: OXcarbazepine 300 MG TABLET PO ×2 (09:39→21:14)
[2022-09-19] MEDS: busPIRone HCl 10 MG TABLET PO ×2 (09:39→21:14)
[2022-09-19] MEDS: Benztropine Mesylate 1 MG TABLET PO ×3 (09:39→21:14)
[2022-09-19 16:40] VITALS: BP 135/84; PULSE 95; RESP 14; TEMP 36.9; O2SAT 99
[2022-09-19] MEDS: Gabapentin 300 MG CAPSULE PO (17:18)
--- NOTE | 2022-09-19 18:42 | PC.ADMIT ---
PT is a 56 year old bilingual (serbian/bulgarian) speaking female that arrived on this unit at 16:28 from the [facility]. PT was assessed @ her home by JHONNYN and then brought to the ER after her family reports increased irritability at home and confusion/anxiety related to missing a court date that never existed. Of note, pt is psychotic at baseline. PT is visibly anxious, flat and difficult to engage for admission process, alert and oriented x 2 ( can not tell me which hospital she is at). PT reports command hallucinations telling her to cut herself with a knife. PT has a hx of requiring IPLOC with the most recent in Apr 11 at [facility]. PT reports passive SI w/ no plan, denies HI and VH. COVID neg, tox screen neg, VS stable, pt oriented to unit. PT is a non smoker and has already received her flu shot this season.
[2022-09-19 21:13] VITALS: BP 128/76; PULSE 75; RESP 14
[2022-09-19] MEDS: Prazosin HCL 5 MG CAPSULE PO (21:14)
[2022-09-19] MEDS: ARIPiprazole 20 MG TABLET PO (21:14)
[2022-09-19] MEDS: Prazosin HCL 1 MG CAPSULE 2 MG PO (21:14)
[2022-09-19] MEDS: Mirtazapine 30 MG TABLET PO (21:14)
[2022-09-20 08:45] VITALS: BP 107/67; PULSE 96; RESP 18; TEMP 36.4; O2SAT 97
[2022-09-20 09:40] LABS: Estimated Average Glucose 111 mg/dL; Hemoglobin A1c % 5.5 %
[2022-09-20] MEDS: OXcarbazepine 300 MG TABLET PO ×2 (09:54→19:48)
[2022-09-20] MEDS: Benztropine Mesylate 1 MG TABLET PO ×3 (09:54→19:48)
[2022-09-20] MEDS: busPIRone HCl 10 MG TABLET PO ×2 (09:54→19:48)
[2022-09-20 10:31] LABS: Cholesterol 247 mg/dL; HDL Cholesterol 44 mg/dL; LDL Cholesterol Calculated 180 mg/dl; Magnesium 1.8 mg/dL (1.6-2.6); Triglycerides 118 mg/dL
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
[2022-09-20 10:40] LABS: Folate 17.4 ng/mL (> or = 4.0); Free T4 (Free Thyroxine) 0.86 ng/dL (0.71-1.85); Thyroid Stimulating Hormone 1.73 uIU/mL (0.32-4.0); Vitamin B12 502 pg/mL (200-900)
[2022-09-20 19:40] VITALS: BP 144/85; PULSE 75; TEMP 36.3; O2SAT 99
[2022-09-20] MEDS: OLANZapine 5 MG TABLET 25 MG PO (19:46)
[2022-09-20] MEDS: Mirtazapine 30 MG TABLET PO (19:48)
[2022-09-20] MEDS: Prazosin HCL 1 MG CAPSULE 2 MG PO (19:49)
[2022-09-21] MEDS: Benztropine Mesylate 1 MG TABLET PO ×3 (08:07→20:42)
[2022-09-21] MEDS: busPIRone HCl 10 MG TABLET PO ×2 (08:07→20:42)
[2022-09-21] MEDS: OXcarbazepine 300 MG TABLET PO ×2 (08:07→20:42)
[2022-09-21 08:09] VITALS: BP 110/81; PULSE 92; RESP 16; TEMP 36.8; O2SAT 99
[2022-09-21] MEDS: Acetaminophen 325 MG TABLET 650 MG PO ×2 (13:06→18:57)
[2022-09-21] MEDS: Milk of Magnesia 30 ML ORAL.SUSP PO (15:08)
[2022-09-21 18:15] VITALS: BP 127/75; PULSE 88; TEMP 36.4; O2SAT 98
--- NOTE | 2022-09-21 20:07 | HO.PSYCHPN ---
Subjective Subjective Date of Service: 09/21/22 Reason For Visit: Depression w/ Psychosis, SI Subjective Notes: Conditional Voluntary Interim History: Team reports confusion and need for assistance. Pt showered today. Brief meetings x 3. Pt is calmer, everyone is so nice here, I could live here, you all are happy . Agrees to further diagnostics (dementia eval). Pt does not believe she needs her walker but will allow PT assessment to give their expertise. Family very connected, supportive and involved with pt. Med regime review with pt's daughter on 09/20/22. Pt feeling supported by this- she knows what I take and helps me. Told pt daughter thought this regime was working- yes . Medication Compliance: Yes Side effects from medications: No Attending Groups: No Review of Systems Acute medical concerns: No Medical Review of Systems: unchanged Mental Status Exam Mental Status Exam Patient Appearance: Fatigued Patient Orientation: Person and Place Level of Consciousness: Restless Patient Behavior: Guarded, Talkative, Passive, Suspicious, Anxious, Fearful and Good Eye Contact Mood Description: Depressed, Anxious and Apprehensive Affect Description: Flat Patient Cognition Impaired: Yes Ability to Follow Directions: Fair Speech Pattern: Spontaneous Speech and Long Pauses Memory Description: Remote Impaired Hallucinations: Auditory Delusions: Paranoid Ideation Perceptual Disturbances: Depersonalization and Derealization Thought Process: Distracted, Rumination, Slowed Thinking and Confusion Thought Content: positive for [place], positive for Circumstantial, positive for Perseveration, positive for Poverty of Content and positive for Suicidal Ideation Depressive Symptoms: Increased Anxiety, Insomnia, Diff. Making Decisions, Increased Irritability, Difficulty Sleeping, Changes in Appetite, Loss of Int. in Activity, Feelings of Worthlessness, Hopelessness, Isolating-Friends/Family, Feelings of Guilt, Unhappiness, Increased Fatigue, Thoughts of /Suicide, Low Self Esteem, Loss of Energy and Difficulty Concentrating Abnormal Motor Activity Signs and Symptoms: Restlessness Judgement: Poor Diagnostics Vital Signs (24Hr): Vital Signs - 24 hr 09/21/22 08:09 09/21/22 18:15 Temperature 98.3 F 97.6 F Pulse Rate 92 88 Respiratory Rate 16 Blood Pressure 110/81 127/75 Pulse Oximetry 99 98 Oxygen Delivery Method Room Air Room Air BMI result Body Mass Index 33.6 Labs 09/16/22 17:17 09/16/22 17:17 Labs: Laboratory Results - last 48 hr 09/20/22 09/20/22 08:29 08:29 Estimat Average Glucose 111 Hemoglobin A1c % 5.5 Magnesium 1.8 Triglycerides 118 Cholesterol 247 LDL Cholesterol, Calc 180 HDL Cholesterol 44 Vitamin B12 502 Folate 17.4 TSH 1.73 Free T4 0.86 Medications Medications Current Medications Acetaminophen (Acetaminophen 325 Mg Tablet) 650 mg PO Q6H PRN PRN Reason: Headache/Pain Mild Scale (1-3) Last Admin: 09/21/22 18:57 Dose: 650 mg Al Hydroxide/Mg Hydroxide (Magnesium Hydrox/Alum Hydrox 30 Ml Oral.Susp) 30 ml PO Q6H PRN PRN Reason: Heartburn/Nausea Benztropine Mesylate (Benztropine Mesylate 1 Mg Tablet) 1 mg PO TID [facility] Last Admin: 09/21/22 14:34 Dose: 1 mg Buspirone HCl (Buspirone Hcl 10 Mg Tablet) 10 mg PO BID [facility] Last Admin: 09/21/22 08:07 Dose: 10 mg Gabapentin (Gabapentin 300 Mg Capsule) 300 mg PO TID PRN PRN Reason: Anxiety Last Admin: 09/19/22 17:18 Dose: 300 mg Hydroxyzine HCl (Hydroxyzine Hcl 25 Mg Tablet) 25 mg PO Q6H PRN PRN Reason: Anxiety Magnesium Hydroxide (Milk Of Magnesia 30 Ml Oral.Susp) 30 ml PO DAILY PRN PRN Reason: Constipation Last Admin: 09/21/22 15:08 Dose: 30 ml Mirtazapine (Mirtazapine 30 Mg Tablet) 30 mg PO BEDTIME [facility] Last Admin: 09/20/22 19:48 Dose: 30 mg Non-Formulary Medication (Desvenlafaxine Er) 50 mg PO DAILY [facility] Olanzapine (Olanzapine 5 Mg Tablet) 25 mg PO BEDTIME [facility] Last Admin: 09/20/22 19:46 Dose: 25 mg Oxcarbazepine (Oxcarbazepine 300 Mg Tablet) 300 mg PO BID [facility] Last Admin: 09/21/22 08:07 Dose: 300 mg Prazosin HCl (Prazosin Hcl 1 Mg Capsule) 2 mg PO BEDTIME [facility]; Protocol Last Admin: 09/20/22 19:49 Dose: 2 mg Risperidone (Risperidone 0.5 Mg Tablet) 0.5 mg PO BID PRN PRN Reason: Anxiety Trazodone HCl (Trazodone Hcl 50 Mg Tablet) 50 mg PO BEDTIME PRN PRN Reason: Insomnia Allergies Allergies Allergy/AdvReac Type Severity Reaction Status Date / Time haloperidol [From Haldol] Allergy Severe eps, td Verified 09/20/22 15:59 aspirin [ASA] Allergy Anaphylaxis Verified 03/17/22 12:18 Penicillins Allergy Anaphylaxis Verified 03/17/22 12:18 Sulfa (Sulfonamide Allergy Difficulty Verified 03/17/22 12:18 Antibiotics) Breathing aripiprazole [From Abilify] AdvReac eps,td Verified 09/20/22 15:59 Assessment & Plan Assessment & Plan (1) PTSD (post-traumatic stress disorder): Status: Acute Code(s): F43.10 - Post-traumatic stress disorder, unspecified (2) Depression, major, recurrent, severe with psychosis: Status: Acute Code(s): F33.3 - Major depressive disorder, recurrent, severe with psychotic symptoms (3) MCI (mild cognitive impairment): Status: Acute Code(s): G31.84 - Mild cognitive impairment of uncertain or unknown etiology Plan Continue to monitor/continue evaluation. CAT Head-fainting, light sensitive (had been scheduled 2/2 as an out pt-team cannot find this appt scheduled) ESR, CRP, RPR, HIV EEG Physical Therapy consult-pt using a walker at home, is this needed Desvenlafaxine XR 50 mg daily Patient educated on: medication risk/benefits and therapeutic strategies Informed Consent: further education needed Reason for contiued inpatient stay Substantial Risk for: harm to self, inability to function and rapid decompensation Time Spent With Patient Time: Total time managing care of this patient today 35 minutes.
[2022-09-21 20:14] VITALS: BP 116/68; PULSE 83
[2022-09-21] MEDS: Prazosin HCL 1 MG CAPSULE 2 MG PO (20:43)
[2022-09-21] MEDS: Mirtazapine 30 MG TABLET PO (20:43)
[2022-09-21] MEDS: OLANZapine 5 MG TABLET 25 MG PO (21:04)
--- NOTE | 2022-09-22 07:00 | EEG_ITS ---
FINDINGS: This is a 16-channel EEG with an EKG lead. Patient is reported awake during the tracing. Background EEG rhythm is 7 to 8 [place], 5 to 30 microvolts posteriorly and lower amplitude fast anteriorly with some muscle artifacts. Photic stimulation does not produce any significant driving. Hyperventilation is not performed. Cardiac lead does not reveal any significant abnormality. IMPRESSION: Mild slowing but no evidence of seizure disorder. MD SHERMAN Villeda/ALBERTO / [phone]
[2022-09-22] MEDS: busPIRone HCl 10 MG TABLET PO ×2 (08:53→21:43)
[2022-09-22] MEDS: Benztropine Mesylate 1 MG TABLET PO ×3 (08:53→21:43)
[2022-09-22] MEDS: OXcarbazepine 300 MG TABLET PO ×2 (08:53→21:43)
[2022-09-22 09:13] VITALS: BP 119/82; PULSE 101; RESP 16; TEMP 36.1; O2SAT 96
[2022-09-22 10:19] LABS: Erythrocyte Sedimentation Rate 25 MM/HR (0-20)
--- NOTE | 2022-09-22 12:21 | P.PNPSI_ITS ---
Subjective Subjective Date of Service: 09/22/22 Reason For Visit: Depression w/ Psychosis, SI Subjective Notes: Conditional Voluntary Healthcare Proxy: No Guardianship: No Medical Problems Affecting Mental Status: No Interim History: CAT Scan wnl. Other tests pending. Pt visable in milieu, appears to ambulate well. PT eval as pt uses a rolling walker at home. Pt tells PT that three times per day she sees a light, her body goes to the right and she falls-given a rolling walker on loan while in pt. EEG pending. Brief interactions with pt who tells team she feels sad, has poor appetite, but with less overall confusion. Denies pain, states family will be coming to visit. Call to [facility] Dr. Duron to review medications and diagnostics. Medication Compliance: Yes Side effects from medications: No Attending Groups: Intermittent Review of Systems Acute medical concerns: No Medical Review of Systems: unchanged Mental Status Exam Mental Status Exam Patient Appearance: Appropriate Patient Orientation: Person and Place Level of Consciousness: Restless Patient Behavior: Guarded, Talkative, Passive, Suspicious, Anxious, Fearful and Good Eye Contact Mood Description: Depressed, Anxious and Apprehensive Affect Description: Flat Patient Cognition Impaired: Yes Ability to Follow Directions: Fair Speech Pattern: Spontaneous Speech and Long Pauses Memory Description: Remote Impaired Hallucinations: Auditory Delusions: Paranoid Ideation Perceptual Disturbances: Depersonalization and Derealization Thought Process: Distracted, Rumination, Slowed Thinking and Confusion Thought Content: positive for [place], positive for Circumstantial, positive for Perseveration, positive for Poverty of Content and positive for Suicidal Ideation Depressive Symptoms: Increased Anxiety, Insomnia, Diff. Making Decisions, Increased Irritability, Difficulty Sleeping, Changes in Appetite, Loss of Int. in Activity, Feelings of Worthlessness, Hopelessness, Isolating-Friends/Family, Feelings of Guilt, Unhappiness, Increased Fatigue, Thoughts of /Suicide, Low Self Esteem, Loss of Energy and Difficulty Concentrating Abnormal Motor Activity Signs and Symptoms: Restlessness Judgement: Poor Diagnostics Vital Signs (24Hr): Vital Signs - 24 hr 09/21/22 18:15 09/21/22 20:14 09/22/22 09:13 Temperature 97.6 F 96.9 F Pulse Rate 88 83 101 H Respiratory Rate 16 Blood Pressure 127/75 116/68 119/82 Pulse Oximetry 98 96 Oxygen Delivery Method Room Air Room Air BMI result Body Mass Index 33.6 Labs 09/16/22 17:17 09/16/22 17:17 Labs: Laboratory Results - last 48 hr 09/22/22 09/22/22 08:32 08:32 ESR 25 H C-Reactive Protein 1.50 H Imaging Radiology Impressions: ITS Impressions Head CT 09/22/22 08:14 IMPRESSION: No acute intracranial process seen. Medications Medications Current Medications Acetaminophen (Acetaminophen 325 Mg Tablet) 650 mg PO Q6H PRN PRN Reason: Headache/Pain Mild Scale (1-3) Last Admin: 09/21/22 18:57 Dose: 650 mg Al Hydroxide/Mg Hydroxide (Magnesium Hydrox/Alum Hydrox 30 Ml Oral.Susp) 30 ml PO Q6H PRN PRN Reason: Heartburn/Nausea Benztropine Mesylate (Benztropine Mesylate 1 Mg Tablet) 1 mg PO TID [facility] Last Admin: 09/22/22 08:53 Dose: 1 mg Buspirone HCl (Buspirone Hcl 10 Mg Tablet) 10 mg PO BID [facility] Last Admin: 09/22/22 08:53 Dose: 10 mg Gabapentin (Gabapentin 300 Mg Capsule) 300 mg PO TID PRN PRN Reason: Anxiety Last Admin: 09/19/22 17:18 Dose: 300 mg Hydroxyzine HCl (Hydroxyzine Hcl 25 Mg Tablet) 25 mg PO Q6H PRN PRN Reason: Anxiety Magnesium Hydroxide (Milk Of Magnesia 30 Ml Oral.Susp) 30 ml PO DAILY PRN PRN Reason: Constipation Last Admin: 09/21/22 15:08 Dose: 30 ml Mirtazapine (Mirtazapine 30 Mg Tablet) 30 mg PO BEDTIME [facility] Last Admin: 09/21/22 20:43 Dose: 30 mg Non-Formulary Medication (Desvenlafaxine Er) 50 mg PO DAILY [facility] Non-Formulary Medication (Desvenlafaxine 50 Mg Xr) 1 cap PO DAILY [facility] Olanzapine (Olanzapine 5 Mg Tablet) 25 mg PO BEDTIME [facility] Last Admin: 09/21/22 21:04 Dose: 25 mg Oxcarbazepine (Oxcarbazepine 300 Mg Tablet) 300 mg PO BID [facility] Last Admin: 09/22/22 08:53 Dose: 300 mg Prazosin HCl (Prazosin Hcl 1 Mg Capsule) 2 mg PO BEDTIME [facility]; Protocol Last Admin: 09/21/22 20:43 Dose: 2 mg Risperidone (Risperidone 0.5 Mg Tablet) 0.5 mg PO BID PRN PRN Reason: Anxiety Trazodone HCl (Trazodone Hcl 50 Mg Tablet) 50 mg PO BEDTIME PRN PRN Reason: Insomnia Allergies Allergies Allergy/AdvReac Type Severity Reaction Status Date / Time aspirin [ASA] Allergy Severe Anaphylaxis Verified 09/22/22 09:22 Penicillins Allergy Severe Anaphylaxis Verified 09/22/22 09:22 Sulfa (Sulfonamide Allergy Difficulty Verified 03/17/22 12:18 Antibiotics) Breathing haloperidol [From Haldol] AdvReac Severe eps, td Verified 09/22/22 09:22 aripiprazole [From Abilify] AdvReac eps,td Verified 09/20/22 15:59 Assessment & Plan Assessment & Plan (1) PTSD (post-traumatic stress disorder): Status: Acute Code(s): F43.10 - Post-traumatic stress disorder, unspecified (2) Depression, major, recurrent, severe with psychosis: Status: Acute Code(s): F33.3 - Major depressive disorder, recurrent, severe with psychotic symptoms (3) MCI (mild cognitive impairment): Status: Acute Code(s): G31.84 - Mild cognitive impairment of uncertain or unknown etiology Plan Continue to monitor/continue evaluation. CAT Head-fainting, light sensitive (had been scheduled 09/22 as an out pt-team cannot find this appt scheduled) ESR, CRP, RPR, HIV EEG Physical Therapy consult-pt using a walker at home, is this needed Desvenlafaxine XR 50 mg daily 09/22/22 Continue current plan and assessment. Informed Consent: further education needed Reason for contiued inpatient stay Substantial Risk for: inability to function and rapid decompensation Time Spent With Patient Time: Total time managing care of this patient today 20 minutes.
[2022-09-22 12:48] VITALS: BMI 29.2
[2022-09-22 16:16] VITALS: BP 131/82; PULSE 96; RESP 16; TEMP 36; O2SAT 96
[2022-09-22] MEDS: Mirtazapine 30 MG TABLET PO (21:43)
[2022-09-22] MEDS: Prazosin HCL 1 MG CAPSULE 2 MG PO (21:43)
[2022-09-22] MEDS: OLANZapine 5 MG TABLET 25 MG PO (21:43)
[2022-09-23 08:51] LABS: HIV AB/AG Nonreactive (Nonreactive); HIV Num 1 0.06 S/CO (0.00-0.99)
[2022-09-23 08:54] LABS: Syphilis Screen Nonreactive (Nonreactive)
[2022-09-23] MEDS: OXcarbazepine 300 MG TABLET PO ×2 (09:26→20:18)
[2022-09-23] MEDS: Benztropine Mesylate 1 MG TABLET PO ×3 (09:26→20:18)
[2022-09-23] MEDS: busPIRone HCl 10 MG TABLET PO ×2 (09:26→20:18)
[2022-09-23 09:28] VITALS: BP 132/92; PULSE 95; RESP 16; TEMP 36.3; O2SAT 99
--- NOTE | 2022-09-23 15:38 | P.PNPSI_ITS ---
Subjective Subjective Date of Service: 09/23/22 Reason For Visit: Depression w/ Psychosis, SI Subjective Notes: Conditional Voluntary Healthcare Proxy: No Guardianship: No Medical Problems Affecting Mental Status: No Interim History: Appears calmer today, continues with confusion. Frequent, brief interactions. Focused on the main door today. Tells tw that behind the door is a senior living and there is someone that cannot be let out because he hurt one of her family-tells tw she is watching closely. In other interactions, smiling, responding to some of the overstimulation of the unit and becomes distracted easily with others activity. Diagnostics still pending-EEG, RPR. ESR elevated at 25 (0-20), CRP elevated at 1.5 (range to 0.5). HIV negative. No word yet from OP team. Medication Compliance: Yes Side effects from medications: No Attending Groups: No Review of Systems Acute medical concerns: No Medical Review of Systems: unchanged Mental Status Exam Mental Status Exam Patient Appearance: Appropriate Patient Orientation: Person Level of Consciousness: Alert Patient Behavior: Talkative, Passive, Anxious, Fearful and Good Eye Contact Mood Description: Anxious and Flat Affect Description: Flat Patient Cognition Impaired: Yes Ability to Follow Directions: Fair Speech Pattern: Spontaneous Speech and Long Pauses Memory Description: Remote Impaired Delusions: Paranoid Ideation Perceptual Disturbances: Depersonalization and Derealization Thought Process: Distracted, Rumination, Slowed Thinking and Confusion Thought Content: positive for [place], positive for Circumstantial, positive for Perseveration and positive for Poverty of Content Depressive Symptoms: Increased Anxiety, Insomnia, Diff. Making Decisions, I ncreased Irritability, Difficulty Sleeping, Changes in Appetite, Loss of Int. in Activity, Feelings of Worthlessness, Hopelessness, Isolating-Friends/Family, Feelings of Guilt, Unhappiness, Increased Fatigue, Low Self Esteem, Loss of Energy and Difficulty Concentrating Abnormal Motor Activity Signs and Symptoms: Restlessness Judgement: Poor Diagnostics Vital Signs (24Hr): Vital Signs - 24 hr 09/22/22 16:16 09/23/22 09:28 Temperature 96.8 F 97.4 F Pulse Rate 96 95 Respiratory Rate 16 16 Blood Pressure 131/82 132/92 H Pulse Oximetry 96 99 Oxygen Delivery Method Room Air BMI result Body Mass Index 29.2 Labs 09/16/22 17:17 09/16/22 17:17 Labs: Laboratory Results - last 48 hr 09/22/22 09/22/22 09/22/22 08:32 08:32 08:32 ESR 25 H C-Reactive Protein 1.50 H T.pallidum Ab (EIA) Nonreactive HIV 1&2 Ab/P24 Ag 4thGn 09/22/22 08:32 ESR C-Reactive Protein T.pallidum Ab (EIA) HIV 1&2 Ab/P24 Ag 4thGn Nonreactive Imaging Radiology Impressions: ITS Impressions Head CT 09/22/22 08:14 IMPRESSION: No acute intracranial process seen. Medications Medications Current Medications Acetaminophen (Acetaminophen 325 Mg Tablet) 650 mg PO Q6H PRN PRN Reason: Headache/Pain Mild Scale (1-3) Last Admin: 09/21/22 18:57 Dose: 650 mg Al Hydroxide/Mg Hydroxide (Magnesium Hydrox/Alum Hydrox 30 Ml Oral.Susp) 30 ml PO Q6H PRN PRN Reason: Heartburn/Nausea Benztropine Mesylate (Benztropine Mesylate 1 Mg Tablet) 1 mg PO TID [facility] Last Admin: 09/23/22 14:28 Dose: 1 mg Buspirone HCl (Buspirone Hcl 10 Mg Tablet) 10 mg PO BID [facility] Last Admin: 09/23/22 09:26 Dose: 10 mg Gabapentin (Gabapentin 300 Mg Capsule) 300 mg PO TID PRN PRN Reason: Anxiety Last Admin: 09/19/22 17:18 Dose: 300 mg Hydroxyzine HCl (Hydroxyzine Hcl 25 Mg Tablet) 25 mg PO Q6H PRN PRN Reason: Anxiety Magnesium Hydroxide (Milk Of Magnesia 30 Ml Oral.Susp) 30 ml PO DAILY PRN PRN Reason: Constipation Last Admin: 09/21/22 15:08 Dose: 30 ml Mirtazapine (Mirtazapine 30 Mg Tablet) 30 mg PO BEDTIME [facility] Last Admin: 09/22/22 21:43 Dose: 30 mg Non-Formulary Medication (Desvenlafaxine Er) 50 mg PO DAILY [facility] Non-Formulary Medication (Desvenlafaxine 50 Mg Xr) 1 cap PO DAILY [facility] Olanzapine (Olanzapine 5 Mg Tablet) 25 mg PO BEDTIME [facility] Last Admin: 09/22/22 21:43 Dose: 25 mg Oxcarbazepine (Oxcarbazepine 300 Mg Tablet) 300 mg PO BID [facility] Last Admin: 09/23/22 09:26 Dose: 300 mg Prazosin HCl (Prazosin Hcl 1 Mg Capsule) 2 mg PO BEDTIME [facility]; Protocol Last Admin: 09/22/22 21:43 Dose: 2 mg Risperidone (Risperidone 0.5 Mg Tablet) 0.5 mg PO BID PRN PRN Reason: Anxiety Trazodone HCl (Trazodone Hcl 50 Mg Tablet) 50 mg PO BEDTIME PRN PRN Reason: Insomnia Allergies Allergies Allergy/AdvReac Type Severity Reaction Status Date / Time aspirin [ASA] Allergy Severe Anaphylaxis Verified 09/22/22 09:22 Penicillins Allergy Severe Anaphylaxis Verified 09/22/22 09:22 Sulfa (Sulfonamide Allergy Difficulty Verified 03/17/22 12:18 Antibiotics) Breathing haloperidol [From Haldol] AdvReac Severe eps, td Verified 09/22/22 09:22 aripiprazole [From Abilify] AdvReac eps,td Verified 09/20/22 15:59 Assessment & Plan Assessment & Plan (1) PTSD (post-traumatic stress disorder): Status: Acute Code(s): F43.10 - Post-traumatic stress disorder, unspecified (2) Depression, major, recurrent, severe with psychosis: Status: Acute Code(s): F33.3 - Major depressive disorder, recurrent, severe with psychotic symptoms (3) MCI (mild cognitive impairment): Status: Acute Code(s): G31.84 - Mild cognitive impairment of uncertain or unknown etiology Plan Continue to monitor/continue evaluation. CAT Head-fainting, light sensitive (had been scheduled 09/22 as an out pt-team cannot find this appt scheduled) ESR, CRP, RPR, HIV EEG Physical Therapy consult-pt using a walker at home, is this needed Desvenlafaxine XR 50 mg daily 09/22/22 Continue current plan and assessment. 09/23/22 Diagnostics ESR, CRP elevated EEG pending RPR HIV negative Consider Aricept trial if EEG is negative Informed Consent: does not understand Reason for contiued inpatient stay Substantial Risk for: inability to function and rapid decompensation Time Spent With Patient Time: Total time managing care of this patient today 20 minutes.
[2022-09-23] MEDS: hydrOXYzine HCL 25 MG TABLET PO (16:47)
[2022-09-23 18:00] VITALS: BP 112/64; PULSE 86; RESP 16; TEMP 36.4; O2SAT 98
[2022-09-23] MEDS: Prazosin HCL 1 MG CAPSULE 2 MG PO (20:18)
[2022-09-23] MEDS: OLANZapine 5 MG TABLET 25 MG PO (20:18)
[2022-09-23] MEDS: Mirtazapine 30 MG TABLET PO (20:18)
[2022-09-24] MEDS: OXcarbazepine 300 MG TABLET PO ×2 (08:38→20:46)
[2022-09-24] MEDS: busPIRone HCl 10 MG TABLET PO ×2 (08:38→20:46)
[2022-09-24] MEDS: Benztropine Mesylate 1 MG TABLET PO ×3 (08:38→20:47)
[2022-09-24 08:55] VITALS: BP 114/85; PULSE 70; RESP 16; TEMP 36.7; O2SAT 96
[2022-09-24 09:23] VITALS: BP 126/85; PULSE 91
--- NOTE | 2022-09-24 16:35 | HO.PSYCHPN ---
Subjective Subjective Date of Service: 09/24/22 Reason For Visit: Depression w/ Psychosis, SI Subjective Notes: Conditional Voluntary Interim History: chart reviewed. Met with patient. Discussed with Nursing. Overall noted dementia workup ongoing. Patient reports that she is not doing too well today. Her sleep has been broken. Feels depressed. Unclear how long she has been in the hospital stated it was 2 weeks, when actuality is 5 days. Was unsure the name of the place she was in. Did however report feeling safe. Denied SI. No medication concerns voiced. Medication Compliance: Yes Side effects from medications: No Attending Groups: No Review of Systems Acute medical concerns: No Review of Systems Review of Systems Yes Unobtainable due to mental status Mental Status Exam Mental Status Exam Narrative: In bed. Appropriately dressed. Self-care okay. Flat affect. Endorses feeling depressed. No SI. No HI. No agitation. No psychosis noted. Insight and judgment poor Diagnostics Vital Signs (24Hr): Vital Signs - 24 hr 09/23/22 18:00 09/24/22 08:55 09/24/22 09:23 Temperature 97.5 F 98.1 F Pulse Rate 86 70 91 Respiratory Rate 16 16 Blood Pressure 112/64 114/85 126/85 Pulse Oximetry 98 96 Oxygen Delivery Method Room Air BMI result Body Mass Index 29.2 Labs 09/16/22 17:17 09/16/22 17:17 Labs: Laboratory Results - last 48 hr 09/22/22 09/22/22 08:32 08:32 T.pallidum Ab (EIA) Nonreactive HIV 1&2 Ab/P24 Ag 4thGn Nonreactive Imaging Radiology Impressions: ITS Impressions Head CT 09/22/22 08:14 IMPRESSION: No acute intracranial process seen. Medications Medications Current Medications Acetaminophen (Acetaminophen 325 Mg Tablet) 650 mg PO Q6H PRN PRN Reason: Headache/Pain Mild Scale (1-3) Last Admin: 09/21/22 18:57 Dose: 650 mg Al Hydroxide/Mg Hydroxide (Magnesium Hydrox/Alum Hydrox 30 Ml Oral.Susp) 30 ml PO Q6H PRN PRN Reason: Heartburn/Nausea Benztropine Mesylate (Benztropine Mesylate 1 Mg Tablet) 1 mg PO TID [facility] Last Admin: 09/24/22 14:10 Dose: 1 mg Buspirone HCl (Buspirone Hcl 10 Mg Tablet) 10 mg PO BID [facility] Last Admin: 09/24/22 08:38 Dose: 10 mg Gabapentin (Gabapentin 300 Mg Capsule) 300 mg PO TID PRN PRN Reason: Anxiety Last Admin: 09/19/22 17:18 Dose: 300 mg Hydroxyzine HCl (Hydroxyzine Hcl 25 Mg Tablet) 25 mg PO Q6H PRN PRN Reason: Anxiety Last Admin: 09/23/22 16:47 Dose: 25 mg Magnesium Hydroxide (Milk Of Magnesia 30 Ml Oral.Susp) 30 ml PO DAILY PRN PRN Reason: Constipation Last Admin: 09/21/22 15:08 Dose: 30 ml Mirtazapine (Mirtazapine 30 Mg Tablet) 30 mg PO BEDTIME [facility] Last Admin: 09/23/22 20:18 Dose: 30 mg Non-Formulary Medication (Desvenlafaxine Er) 50 mg PO DAILY [facility] Olanzapine (Olanzapine 5 Mg Tablet) 25 mg PO BEDTIME [facility] Last Admin: 09/23/22 20:18 Dose: 25 mg Oxcarbazepine (Oxcarbazepine 300 Mg Tablet) 300 mg PO BID [facility] Last Admin: 09/24/22 08:38 Dose: 300 mg Prazosin HCl (Prazosin Hcl 1 Mg Capsule) 2 mg PO BEDTIME [facility]; Protocol Last Admin: 09/23/22 20:18 Dose: 2 mg Risperidone (Risperidone 0.5 Mg Tablet) 0.5 mg PO BID PRN PRN Reason: Anxiety Trazodone HCl (Trazodone Hcl 50 Mg Tablet) 50 mg PO BEDTIME PRN PRN Reason: Insomnia Allergies Allergies Allergy/AdvReac Type Severity Reaction Status Date / Time aspirin [ASA] Allergy Severe Anaphylaxis Verified 09/22/22 09:22 Penicillins Allergy Severe Anaphylaxis Verified 09/22/22 09:22 Sulfa (Sulfonamide Allergy Difficulty Verified 03/17/22 12:18 Antibiotics) Breathing haloperidol [From Haldol] AdvReac Severe eps, td Verified 09/22/22 09:22 aripiprazole [From Abilify] AdvReac eps,td Verified 09/20/22 15:59 Assessment & Plan Assessment & Plan (1) PTSD (post-traumatic stress disorder): Status: Acute Code(s): F43.10 - Post-traumatic stress disorder, unspecified (2) Depression, major, recurrent, severe with psychosis: Status: Acute Code(s): F33.3 - Major depressive disorder, recurrent, severe with psychotic symptoms (3) MCI (mild cognitive impairment): Status: Acute Code(s): G31.84 - Mild cognitive impairment of uncertain or unknown etiology Plan Continue to monitor/continue evaluation. CAT Head-fainting, light sensitive (had been scheduled 09/22 as an out pt-team cannot find this appt scheduled) ESR, CRP, RPR, HIV EEG Physical Therapy consult-pt using a walker at home, is this needed Desvenlafaxine XR 50 mg daily 09/22/22 Continue current plan and assessment. 09/23/22 Diagnostics ESR, CRP elevated EEG pending RPR HIV negative Consider Aricept trial if EEG is negative 09/24/2022: Noted dementia workup ongoing. No acute changes Reason for contiued inpatient stay Substantial Risk for: inability to function Time Spent With Patient Time: Total time managing care of this patient today ____ minutes.
[2022-09-24 20:45] VITALS: BP 99/61; PULSE 71; RESP 14; TEMP 36.1
[2022-09-24] MEDS: Prazosin HCL 1 MG CAPSULE 2 MG PO (20:46)
[2022-09-24] MEDS: OLANZapine 5 MG TABLET 25 MG PO (20:46)
[2022-09-24] MEDS: Mirtazapine 30 MG TABLET PO (20:46)
[2022-09-25] MEDS: busPIRone HCl 10 MG TABLET PO ×2 (09:02→20:58)
[2022-09-25] MEDS: OXcarbazepine 300 MG TABLET PO ×2 (09:02→20:59)
[2022-09-25] MEDS: Benztropine Mesylate 1 MG TABLET PO ×3 (09:02→20:59)
[2022-09-25 09:14] VITALS: BP 129/82; PULSE 94; RESP 16; TEMP 35.9; O2SAT 98
--- NOTE | 2022-09-25 12:45 | HO.PSYCHPN ---
Subjective Subjective Date of Service: 09/25/22 Reason For Visit: Depression w/ Psychosis, SI Interim History: chart reviewed. Met with patient. Dementia workup ongoing- EEG pending. No signifincat change since yesterday- reports not doing well (cant specify). s not doing too well today. Her sleep has been broken. Feels depressed. Remains unclear how long she has been in the hospital or rationale why. Continues to feel safe however. Medication Compliance: Yes Side effects from medications: No Attending Groups: No Review of Systems Review of Systems Yes Unobtainable due to mental status Mental Status Exam Mental Status Exam Narrative: In bed. Appropriately dressed. Self-care okay. Flat affect. Endorses feeling depressed. No SI. No HI. No agitation. No psychosis noted. Insight and judgment poor Diagnostics Vital Signs (24Hr): Vital Signs - 24 hr 09/24/22 20:45 09/25/22 09:14 Temperature 97 F 96.7 F L Pulse Rate 71 94 Respiratory Rate 14 16 Blood Pressure 99/61 129/82 Pulse Oximetry 98 Oxygen Delivery Method Room Air BMI result Body Mass Index 29.2 Labs 09/16/22 17:17 09/16/22 17:17 Imaging Radiology Impressions: ITS Impressions Head CT 09/22/22 08:14 IMPRESSION: No acute intracranial process seen. Medications Medications Current Medications Acetaminophen (Acetaminophen 325 Mg Tablet) 650 mg PO Q6H PRN PRN Reason: Headache/Pain Mild Scale (1-3) Last Admin: 09/21/22 18:57 Dose: 650 mg Al Hydroxide/Mg Hydroxide (Magnesium Hydrox/Alum Hydrox 30 Ml Oral.Susp) 30 ml PO Q6H PRN PRN Reason: Heartburn/Nausea Benztropine Mesylate (Benztropine Mesylate 1 Mg Tablet) 1 mg PO TID [facility] Last Admin: 09/25/22 09:02 Dose: 1 mg Buspirone HCl (Buspirone Hcl 10 Mg Tablet) 10 mg PO BID [facility] Last Admin: 09/25/22 09:02 Dose: 10 mg Gabapentin (Gabapentin 300 Mg Capsule) 300 mg PO TID PRN PRN Reason: Anxiety Last Admin: 09/19/22 17:18 Dose: 300 mg Hydroxyzine HCl (Hydroxyzine Hcl 25 Mg Tablet) 25 mg PO Q6H PRN PRN Reason: Anxiety Last Admin: 09/23/22 16:47 Dose: 25 mg Magnesium Hydroxide (Milk Of Magnesia 30 Ml Oral.Susp) 30 ml PO DAILY PRN PRN Reason: Constipation Last Admin: 09/21/22 15:08 Dose: 30 ml Mirtazapine (Mirtazapine 30 Mg Tablet) 30 mg PO BEDTIME [facility] Last Admin: 09/24/22 20:46 Dose: 30 mg Olanzapine (Olanzapine 5 Mg Tablet) 25 mg PO BEDTIME [facility] Last Admin: 09/24/22 20:46 Dose: 25 mg Oxcarbazepine (Oxcarbazepine 300 Mg Tablet) 300 mg PO BID [facility] Last Admin: 09/25/22 09:02 Dose: 300 mg Prazosin HCl (Prazosin Hcl 1 Mg Capsule) 2 mg PO BEDTIME [facility]; Protocol Last Admin: 09/24/22 20:46 Dose: 2 mg Risperidone (Risperidone 0.5 Mg Tablet) 0.5 mg PO BID PRN PRN Reason: Anxiety Trazodone HCl (Trazodone Hcl 50 Mg Tablet) 50 mg PO BEDTIME PRN PRN Reason: Insomnia Allergies Allergies Allergy/AdvReac Type Severity Reaction Status Date / Time aspirin [ASA] Allergy Severe Anaphylaxis Verified 09/22/22 09:22 Penicillins Allergy Severe Anaphylaxis Verified 09/22/22 09:22 Sulfa (Sulfonamide Allergy Difficulty Verified 03/17/22 12:18 Antibiotics) Breathing haloperidol [From Haldol] AdvReac Severe eps, td Verified 09/22/22 09:22 aripiprazole [From Abilify] AdvReac eps,td Verified 09/20/22 15:59 Assessment & Plan Assessment & Plan (1) PTSD (post-traumatic stress disorder): Status: Acute Code(s): F43.10 - Post-traumatic stress disorder, unspecified (2) Depression, major, recurrent, severe with psychosis: Status: Acute Code(s): F33.3 - Major depressive disorder, recurrent, severe with psychotic symptoms (3) MCI (mild cognitive impairment): Status: Acute Code(s): G31.84 - Mild cognitive impairment of uncertain or unknown etiology Plan Continue to monitor/continue evaluation. CAT Head-fainting, light sensitive (had been scheduled 2/2 as an out pt-team cannot find this appt scheduled) ESR, CRP, RPR, HIV EEG Physical Therapy consult-pt using a walker at home, is this needed Desvenlafaxine XR 50 mg daily 09/22/22 Continue current plan and assessment. 09/23/22 Diagnostics ESR, CRP elevated EEG pending RPR HIV negative Consider Aricept trial if EEG is negative 09/25/2022: Noted dementia workup ongoing (EEG pending). No acute changes Reason for contiued inpatient stay Substantial Risk for: inability to function Time Spent With Patient Time: Total time managing care of this patient today ____ minutes.
[2022-09-25 18:00] VITALS: BP 126/80; PULSE 87; RESP 14; TEMP 36.1
[2022-09-25 20:57] VITALS: BP 126/80
[2022-09-25] MEDS: OLANZapine 5 MG TABLET 25 MG PO (20:58)
[2022-09-25] MEDS: Mirtazapine 30 MG TABLET PO (20:58)
[2022-09-25] MEDS: Prazosin HCL 1 MG CAPSULE 2 MG PO (20:59)
[2022-09-26 09:21] VITALS: BP 103/64; PULSE 80; RESP 18; TEMP 35.8; O2SAT 100
[2022-09-26] MEDS: busPIRone HCl 10 MG TABLET PO ×2 (09:23→20:01)
[2022-09-26] MEDS: OXcarbazepine 300 MG TABLET PO ×2 (09:23→20:01)
[2022-09-26] MEDS: Benztropine Mesylate 1 MG TABLET PO ×3 (09:23→20:00)
[2022-09-26 18:00] VITALS: BP 119/76; PULSE 102; TEMP 36.4; O2SAT 97
--- NOTE | 2022-09-26 18:31 | P.PNPSI_ITS ---
Subjective Subjective Date of Service: 09/26/22 Reason For Visit: Depression w/ Psychosis, SI Subjective Notes: Conditional Voluntary Healthcare Proxy: No Guardianship: No Medical Problems Affecting Mental Status: No Interim History: EEG results show no seizure activity but overall slowing. ESR 25 (0-20) CRP 1.5 (<0.5) Family meeting with pt, daughter and son. Children are very supportive of pt. Both report this is not pt- Since the of her mom and the trial where she needed to testify regarding parole for sister's killer she has been distant, confused, wandering, in and out of the hospital. Daughter to apply for legal guardianship. Discussed assist with this and application for [facility] care mgt. At this time pt and family decline ECT/TMS consults- children fear that this will impair her memory more that it is. They are hoping to admit her to [facility] for ongoing work. Pt engaged in the meeting, yet was distant, dissociative, with derealization sx. Message left for Dr. Duron for her input regarding pt care-?neuropsych testing, ?MRI, ?further neuro eval. Medication Compliance: Yes Side effects from medications: No Attending Groups: Intermittent Review of Systems Acute medical concerns: No Medical Review of Systems: unchanged Mental Status Exam Mental Status Exam Patient Appearance: Appropriate Patient Orientation: Person and Place Level of Consciousness: Alert Patient Behavior: Talkative, Passive, Anxious and Good Eye Contact Mood Description: Depressed and Flat Affect Description: Flat Patient Cognition Impaired: Yes Ability to Follow Directions: Fair Speech Pattern: Spontaneous Speech and Long Pauses Memory Description: Remote Impaired Hallucinations: Auditory Delusions: Paranoid Ideation Perceptual Disturbances: Depersonalization and Derealization Thought Process: Distracted, Rumination, Slowed Thinking and Confusion Thought Content: positive for [place], positive for Circumstantial, positive for [place], positive for Poverty of Content, positive for Preoccupation and positive for Slowed Thinking Depressive Symptoms: Increased Anxiety, Insomnia, Diff. Making Decisions, Increased Irritability, Difficulty Sleeping, Changes in Appetite, Loss of Int. in Activity, Feelings of Worthlessness, Hopelessness, Isolating-Friends/Family, Feelings of Guilt, Unhappiness, Increased Fatigue, Low Self Esteem, Loss of Energy and Difficulty Concentrating Abnormal Motor Activity Signs and Symptoms: Restlessness Judgement: Poor Diagnostics Vital Signs (24Hr): Vital Signs - 24 hr 09/25/22 20:57 09/26/22 09:21 Temperature 96.5 F L Pulse Rate 80 Respiratory Rate 18 Blood Pressure 126/80 103/64 Pulse Oximetry 100 Oxygen Delivery Method Room Air BMI result Body Mass Index 29.2 Labs 09/16/22 17:17 09/16/22 17:17 Imaging Radiology Impressions: ITS Impressions Head CT 09/22/22 08:14 IMPRESSION: No acute intracranial process seen. Medications Medications Current Medications Acetaminophen (Acetaminophen 325 Mg Tablet) 650 mg PO Q6H PRN PRN Reason: Headache/Pain Mild Scale (1-3) Last Admin: 09/21/22 18:57 Dose: 650 mg Al Hydroxide/Mg Hydroxide (Magnesium Hydrox/Alum Hydrox 30 Ml Oral.Susp) 30 ml PO Q6H PRN PRN Reason: Heartburn/Nausea Benztropine Mesylate (Benztropine Mesylate 1 Mg Tablet) 1 mg PO TID [facility] Last Admin: 09/26/22 14:26 Dose: 1 mg Buspirone HCl (Buspirone Hcl 10 Mg Tablet) 10 mg PO BID [facility] Last Admin: 09/26/22 09:23 Dose: 10 mg Gabapentin (Gabapentin 300 Mg Capsule) 300 mg PO TID PRN PRN Reason: Anxiety Last Admin: 09/19/22 17:18 Dose: 300 mg Hydroxyzine HCl (Hydroxyzine Hcl 25 Mg Tablet) 25 mg PO Q6H PRN PRN Reason: Anxiety Last Admin: 09/23/22 16:47 Dose: 25 mg Magnesium Hydroxide (Milk Of Magnesia 30 Ml Oral.Susp) 30 ml PO DAILY PRN PRN Reason: Constipation Last Admin: 09/21/22 15:08 Dose: 30 ml Mirtazapine (Mirtazapine 30 Mg Tablet) 30 mg PO BEDTIME [facility] Last Admin: 09/25/22 20:58 Dose: 30 mg Olanzapine (Olanzapine 5 Mg Tablet) 25 mg PO BEDTIME [facility] Last Admin: 09/25/22 20:58 Dose: 25 mg Oxcarbazepine (Oxcarbazepine 300 Mg Tablet) 300 mg PO BID [facility] Last Admin: 09/26/22 09:23 Dose: 300 mg Prazosin HCl (Prazosin Hcl 1 Mg Capsule) 2 mg PO BEDTIME [facility]; Protocol Last Admin: 09/25/22 20:59 Dose: 2 mg Risperidone (Risperidone 0.5 Mg Tablet) 0.5 mg PO BID PRN PRN Reason: Anxiety Trazodone HCl (Trazodone Hcl 50 Mg Tablet) 50 mg PO BEDTIME PRN PRN Reason: Insomnia Allergies Allergies Allergy/AdvReac Type Severity Reaction Status Date / Time aspirin [ASA] Allergy Severe Anaphylaxis Verified 09/22/22 09:22 Penicillins Allergy Severe Anaphylaxis Verified 09/22/22 09:22 Sulfa (Sulfonamide Allergy Difficulty Verified 03/17/22 12:18 Antibiotics) Breathing haloperidol [From Haldol] AdvReac Severe eps, td Verified 09/22/22 09:22 aripiprazole [From Abilify] AdvReac eps,td Verified 09/20/22 15:59 Assessment & Plan Assessment & Plan (1) PTSD (post-traumatic stress disorder): Status: Acute Code(s): F43.10 - Post-traumatic stress disorder, unspecified (2) Depression, major, recurrent, severe with psychosis: Status: Acute Code(s): F33.3 - Major depressive disorder, recurrent, severe with psychotic symptoms (3) MCI (mild cognitive impairment): Status: Acute Code(s): G31.84 - Mild cognitive impairment of uncertain or unknown etiology Plan Continue to monitor/continue evaluation. CAT Head-fainting, light sensitive (had been scheduled 09/22 as an out pt-team cannot find this appt scheduled) ESR, CRP, RPR, HIV EEG Physical Therapy consult-pt using a walker at home, is this needed Desvenlafaxine XR 50 mg daily 09/22/22 Continue current plan and assessment. 09/23/22 Diagnostics ESR, CRP elevated EEG pending RPR HIV negative Consider Aricept trial if EEG is negative 09/25/2022: Noted dementia workup ongoing (EEG pending). No acute changes 09/26/22: Assist family in application for [facility] and community guardianship Guardian/Caregiver educated on: diagnosis, medication risk/benefits, therapeutic strategies and medical condition Informed Consent: does not understand Reason for contiued inpatient stay Substantial Risk for: rapid decompensation Time Spent With Patient Time: Total time managing care of this patient today 45 minutes.
[2022-09-26] MEDS: OLANZapine 5 MG TABLET 25 MG PO (20:00)
[2022-09-26] MEDS: Prazosin HCL 1 MG CAPSULE 2 MG PO (20:00)
[2022-09-26] MEDS: Mirtazapine 30 MG TABLET PO (20:01)
[2022-09-27 06:00] VITALS: BP 107/80; PULSE 89; RESP 18; TEMP 36.1; O2SAT 97
[2022-09-27] MEDS: OXcarbazepine 300 MG TABLET PO ×2 (08:30→20:32)
[2022-09-27] MEDS: busPIRone HCl 10 MG TABLET PO ×2 (08:30→20:32)
[2022-09-27] MEDS: Benztropine Mesylate 1 MG TABLET PO ×3 (08:30→20:32)
--- NOTE | 2022-09-27 11:38 | P.PNPSI_ITS ---
Subjective Subjective Date of Service: 09/27/22 Reason For Visit: Depression w/ Psychosis, SI Subjective Notes: Conditional Voluntary Healthcare Proxy: No Guardianship: No Medical Problems Affecting Mental Status: No Interim History: DMH, Guardianship application pending. Pt reports she is OK today. She remains confused, believes she has to testify for her sister on the sixth floor today an d asks if we will accompany her. Responds to re-orientation with some relief, stating she is very anxious about having to go to court to support her sister and glad this does not have to occur. Continues to report sadness, grief and missing her home, you know my mother recently. . Discussed treatment alternatives, I think anything you do that will help me is good. Reports feeling safe on the unit. Reflects on the activity she observes with peers with accuracy and offers her perspective on how to assist others. Medication Compliance: Yes Side effects from medications: No Attending Groups: Intermittent Review of Systems Acute medical concerns: No Medical Review of Systems: unchanged Mental Status Exam Mental Status Exam Patient Appearance: Appropriate Patient Orientation: Person and Place Level of Consciousness: Alert Patient Behavior: Talkative, Passive, Anxious and Good Eye Contact Mood Description: Depressed and Flat Affect Description: Flat Patient Cognition Impaired: Yes Ability to Follow Directions: Fair Speech Pattern: Spontaneous Speech and Long Pauses Memory Description: Remote Impaired Perceptual Disturbances: Depersonalization and Derealization Thought Process: Distracted, Rumination, Slowed Thinking and Confusion Thought Content: positive for [place], positive for Circumstantial, positive for Perseveration, positive for Poverty of Content, positive for Preoccupation and positive for Slowed Thinking Depressive Symptoms: Increased Anxiety, Insomnia, Diff. Making Decisions, Difficulty Sleeping, Isolating-Friends/Family, Feelings of Guilt, Unhappiness, Increased Fatigue, Low Self Esteem, Loss of Energy and Difficulty Concentrating Abnormal Motor Activity Signs and Symptoms: Restlessness Judgement: Poor Diagnostics Vital Signs (24Hr): Vital Signs - 24 hr 09/26/22 18:00 09/27/22 06:00 Temperature 97.5 F 96.9 F Pulse Rate 102 H 89 Respiratory Rate 18 Blood Pressure 119/76 107/80 Pulse Oximetry 97 97 Oxygen Delivery Method Room Air Room Air BMI result Body Mass Index 29.2 Labs 09/16/22 17:17 09/16/22 17:17 Imaging Radiology Impressions: ITS Impressions Head CT 09/22/22 08:14 IMPRESSION: No acute intracranial process seen. Medications Medications Current Medications Acetaminophen (Acetaminophen 325 Mg Tablet) 650 mg PO Q6H PRN PRN Reason: Headache/Pain Mild Scale (1-3) Last Admin: 09/21/22 18:57 Dose: 650 mg Al Hydroxide/Mg Hydroxide (Magnesium Hydrox/Alum Hydrox 30 Ml Oral.Susp) 30 ml PO Q6H PRN PRN Reason: Heartburn/Nausea Benztropine Mesylate (Benztropine Mesylate 1 Mg Tablet) 1 mg PO TID MALLORY Last Admin: 09/27/22 08:30 Dose: 1 mg Buspirone HCl (Buspirone Hcl 10 Mg Tablet) 10 mg PO BID MALLORY Last Admin: 09/27/22 08:30 Dose: 10 mg Gabapentin (Gabapentin 300 Mg Capsule) 300 mg PO TID PRN PRN Reason: Anxiety Last Admin: 09/19/22 17:18 Dose: 300 mg Hydroxyzine HCl (Hydroxyzine Hcl 25 Mg Tablet) 25 mg PO Q6H PRN PRN Reason: Anxiety Last Admin: 09/23/22 16:47 Dose: 25 mg Magnesium Hydroxide (Milk Of Magnesia 30 Ml Oral.Susp) 30 ml PO DAILY PRN PRN Reason: Constipation Last Admin: 09/21/22 15:08 Dose: 30 ml Mirtazapine (Mirtazapine 30 Mg Tablet) 30 mg PO BEDTIME MALLORY Last Admin: 09/26/22 20:01 Dose: 30 mg Olanzapine (Olanzapine 5 Mg Tablet) 25 mg PO BEDTIME M[facility]ORY Last Admin: 09/26/22 20:00 Dose: 25 mg Oxcarbazepine (Oxcarbazepine 300 Mg Tablet) 300 mg PO BID MALLORY Last Admin: 09/27/22 08:30 Dose: 300 mg Prazosin HCl (Prazosin Hcl 1 Mg Capsule) 2 mg PO BEDTIME MALLORY; Protocol Last Admin: 09/26/22 20:00 Dose: 2 mg Risperidone (Risperidone 0.5 Mg Tablet) 0.5 mg PO BID PRN PRN Reason: Anxiety Trazodone HCl (Trazodone Hcl 50 Mg Tablet) 50 mg PO BEDTIME PRN PRN Reason: Insomnia Allergies Allergies Allergy/AdvReac Type Severity Reaction Status Date / Time aspirin [ASA] Allergy Severe Anaphylaxis Verified 09/22/22 09:22 Penicillins Allergy Severe Anaphylaxis Verified 09/22/22 09:22 Sulfa (Sulfonamide Allergy Difficulty Verified 03/17/22 12:18 Antibiotics) Breathing haloperidol [From Haldol] AdvReac Severe eps, td Verified 09/22/22 09:22 aripiprazole [From Abilify] AdvReac eps,td Verified 09/20/22 15:59 Assessment & Plan Assessment & Plan (1) PTSD (post-traumatic stress disorder): Status: Acute Code(s): F43.10 - Post-traumatic stress disorder, unspecified (2) Depression, major, recurrent, severe with psychosis: Status: Acute Code(s): F33.3 - Major depressive disorder, recurrent, severe with psychotic symptoms (3) MCI (mild cognitive impairment): Status: Acute Code(s): G31.84 - Mild cognitive impairment of uncertain or unknown etiology Plan Continue to monitor/continue evaluation. CAT Head-fainting, light sensitive (had been scheduled 09/22 as an out pt-team cannot find this appt scheduled) ESR, CRP, RPR, HIV EEG Physical Therapy consult-pt using a walker at home, is this needed Desvenlafaxine XR 50 mg daily 09/22/22 Continue current plan and assessment. 09/23/22 Diagnostics ESR, CRP elevated EEG pending RPR HIV negative Consider Aricept trial if EEG is negative 09/25/2022: Noted dementia workup ongoing (EEG pending). No acute changes 09/26/22: Assist family in application for DMH and community guardianship 09/27/22: ECT consultation, guardianship and DMH applications. Calmer on the unit today. Patient educated on: medication risk/benefits and therapeutic strategies Informed Consent: further education needed Reason for contiued inpatient stay Substantial Risk for: inability to function and rapid decompensation Time Spent With Patient Time: Total time managing care of this patient today 20 minutes.
--- NOTE | 2022-09-27 12:42 | PC.RT ---
I emailed Dr. Cohen for correct orders for Cpap. Order says cpap 4. auto cpap does not start til 5 and the range is to 20. the order should be corrected.
[2022-09-27 18:00] VITALS: BP 123/81; PULSE 91; RESP 16; TEMP 36.3; O2SAT 98
[2022-09-27] MEDS: OLANZapine 5 MG TABLET 25 MG PO (20:31)
[2022-09-27] MEDS: Prazosin HCL 1 MG CAPSULE 2 MG PO (20:31)
[2022-09-27] MEDS: Mirtazapine 30 MG TABLET PO (20:32)
[2022-09-27] MEDS: Milk of Magnesia 30 ML ORAL.SUSP PO (20:33)
[2022-09-28] MEDS: Benztropine Mesylate 1 MG TABLET PO ×3 (08:04→20:21)
[2022-09-28] MEDS: OXcarbazepine 300 MG TABLET PO ×3 (08:04→20:23)
[2022-09-28] MEDS: busPIRone HCl 10 MG TABLET PO ×2 (08:04→20:21)
[2022-09-28 08:31] VITALS: BP 126/79; PULSE 109; RESP 16; TEMP 35.8; O2SAT 95
--- NOTE | 2022-09-28 14:43 | P.PNPSI_ITS ---
Subjective Subjective Date of Service: 09/28/22 Reason For Visit: Depression w/ Psychosis, SI Subjective Notes: Conditional Voluntary Healthcare Proxy: No Guardianship: No Medical Problems Affecting Mental Status: No Interim History: ECT consult completed by Dr. Huang. Pt attempting to attend group today, some sadness noted. Connected with Dr. Duron-she had wanted a medical eval as she felt the regime was not working in out patient therapy. Discussed titration of Trileptal with pt who states she wants to feel improved and she agrees to medication changes. Medication Compliance: Yes Side effects from medications: No Attending Groups: Intermittent Review of Systems Acute medical concerns: No Medical Review of Systems: unchanged Mental Status Exam Mental Status Exam Patient Appearance: Appropriate Patient Orientation: Person and Place Level of Consciousness: Alert Patient Behavior: Talkative, Passive, Anxious and Good Eye Contact Mood Description: Depressed and Flat Affect Description: Flat Patient Cognition Impaired: Yes Ability to Follow Directions: Fair Speech Pattern: Spontaneous Speech and Long Pauses Memory Description: Remote Impaired Perceptual Disturbances: Depersonalization and Derealization Thought Process: Distracted, Rumination, Slowed Thinking and Confusion Thought Content: positive for [place], positive for Circumstantial, positive for Perseveration, positive for Poverty of Content, positive for Preoccupation and positive for Slowed Thinking Depressive Symptoms: Increased Anxiety, Insomnia, Diff. Making Decisions, Difficulty Sleeping, Isolating-Friends/Family, Feelings of Guilt, Unhappiness, Increased Fatigue, Low Self Esteem, Loss of Energy and Difficulty Concentrating Abnormal Motor Activity Signs and Symptoms: Restlessness Judgement: Poor Diagnostics Vital Signs (24Hr): Vital Signs - 24 hr 09/27/22 18:00 09/28/22 08:31 Temperature 97.4 F 96.5 F L Pulse Rate 91 109 H Respiratory Rate 16 16 Blood Pressure 123/81 126/79 Pulse Oximetry 98 95 Oxygen Delivery Method Room Air Room Air BMI result Body Mass Index 29.2 Labs 09/16/22 17:17 09/16/22 17:17 Imaging Radiology Impressions: ITS Impressions Head CT 09/22/22 08:14 IMPRESSION: No acute intracranial process seen. Medications Medications Current Medications Acetaminophen (Acetaminophen 325 Mg Tablet) 650 mg PO Q6H PRN PRN Reason: Headache/Pain Mild Scale (1-3) Last Admin: 09/21/22 18:57 Dose: 650 mg Al Hydroxide/Mg Hydroxide (Magnesium Hydrox/Alum Hydrox 30 Ml Oral.Susp) 30 ml PO Q6H PRN PRN Reason: Heartburn/Nausea Benztropine Mesylate (Benztropine Mesylate 1 Mg Tablet) 1 mg PO TID MALLORY Last Admin: 09/28/22 14:21 Dose: 1 mg Buspirone HCl (Buspirone Hcl 10 Mg Tablet) 10 mg PO BID MALLORY Last Admin: 09/28/22 08:04 Dose: 10 mg Gabapentin (Gabapentin 300 Mg Capsule) 300 mg PO TID PRN PRN Reason: Anxiety Last Admin: 09/19/22 17:18 Dose: 300 mg Hydroxyzine HCl (Hydroxyzine Hcl 25 Mg Tablet) 25 mg PO Q6H PRN PRN Reason: Anxiety Last Admin: 09/23/22 16:47 Dose: 25 mg Magnesium Hydroxide (Milk Of Magnesia 30 Ml Oral.Susp) 30 ml PO DAILY PRN PRN Reason: Constipation Last Admin: 09/27/22 20:33 Dose: 30 ml Mirtazapine (Mirtazapine 30 Mg Tablet) 30 mg PO BEDTIME MALLORY Last Admin: 09/27/22 20:32 Dose: 30 mg Olanzapine (Olanzapine 5 Mg Tablet) 25 mg PO BEDTIME MALLORY Last Admin: 09/27/22 20:31 Dose: 25 mg Oxcarbazepine (Oxcarbazepine 300 Mg Tablet) 300 mg PO TID MALLORY Last Admin: 09/28/22 14:21 Dose: 300 mg Prazosin HCl (Prazosin Hcl 1 Mg Capsule) 2 mg PO BEDTIME MALLORY; Protocol Last Admin: 09/27/22 20:31 Dose: 2 mg Risperidone (Risperidone 0.5 Mg Tablet) 0.5 mg PO BID PRN PRN Reason: Anxiety Trazodone HCl (Trazodone Hcl 50 Mg Tablet) 50 mg PO BEDTIME PRN PRN Reason: Insomnia Allergies Allergies Allergy/AdvReac Type Severity Reaction Status Date / Time aspirin [ASA] Allergy Severe Anaphylaxis Verified 09/22/22 09:22 Penicillins Allergy Severe Anaphylaxis Verified 09/22/22 09:22 Sulfa (Sulfonamide Allergy Difficulty Verified 03/17/22 12:18 Antibiotics) Breathing haloperidol [From Haldol] AdvReac Severe eps, td Verified 09/22/22 09:22 aripiprazole [From Abilify] AdvReac eps,td Verified 09/20/22 15:59 Assessment & Plan Assessment & Plan (1) PTSD (post-traumatic stress disorder): Status: Acute Code(s): F43.10 - Post-traumatic stress disorder, unspecified (2) Depression, major, recurrent, severe with psychosis: Status: Acute Code(s): F33.3 - Major depressive disorder, recurrent, severe with psychotic symptoms (3) MCI (mild cognitive impairment): Status: Acute Code(s): G31.84 - Mild cognitive impairment of uncertain or unknown etiology Plan Continue to monitor/continue evaluation. CAT Head-fainting, light sensitive (had been scheduled 09/22 as an out pt-team cannot find this appt scheduled) ESR, CRP, RPR, HIV EEG Physical Therapy consult-pt using a walker at home, is this needed Desvenlafaxine XR 50 mg daily 09/22/22 Continue current plan and assessment. 09/23/22 Diagnostics ESR, CRP elevated EEG pending RPR HIV negative Consider Aricept trial if EEG is negative 09/25/2022: Noted dementia workup ongoing (EEG pending). No acute changes 09/26/22: Assist family in application for DMH and community guardianship 09/27/22: ECT consultation, guardianship and DMH applications. Calmer on the unit today. 09/28/22: Increase Trileptal to TID. Patient educated on: medication risk/benefits Informed Consent: further education needed Reason for contiued inpatient stay Substantial Risk for: inability to function and rapid decompensation Time Spent With Patient Time: Total time managing care of this patient today 15 minutes.
[2022-09-28 18:00] VITALS: BP 126/74; PULSE 80; RESP 18; TEMP 36.2; O2SAT 98
[2022-09-28] MEDS: OLANZapine 5 MG TABLET 25 MG PO (20:22)
[2022-09-28] MEDS: Mirtazapine 30 MG TABLET PO (20:22)
[2022-09-28] MEDS: Prazosin HCL 1 MG CAPSULE 2 MG PO (20:23)
[2022-09-29 07:00] VITALS: BMI 29.5
--- NOTE | 2022-09-29 08:06 | PC.RT ---
The patient was ordererd on cpap 09/26/2022. Cpap brought uo to the floor and nurse notified and placed the cpap in the closet. The patient has not been placed on this cpap since the order was entered. The night RT's said they never received a call for this and also the pt needs a sitter and there hasnt been any availble therefor for pt safety she cannot be on it with a sitter. I will discuss this matter again with Director of behavioral unit.
[2022-09-29] MEDS: Benztropine Mesylate 1 MG TABLET PO ×3 (08:18→20:48)
[2022-09-29] MEDS: OXcarbazepine 300 MG TABLET PO ×3 (08:18→20:49)
[2022-09-29] MEDS: busPIRone HCl 10 MG TABLET PO ×2 (08:18→20:49)
[2022-09-29 08:45] VITALS: BP 125/83; PULSE 93; RESP 16; TEMP 36.2; O2SAT 99
--- NOTE | 2022-09-29 15:22 | PM.NEUROCN ---
History of Present Illness Data of Consult Service Date: 09/29/22 Primary Care Provider: Unknown Physician HPI Reason for consult: Clearance for ECT 56 years old woman with longstanding history of depression and PTSD was admitted on psychiatric floor with worsening of her symptoms and ECT was considered for treatment and this consultation was requested for clearance. She was not known to have any epilepsy or pertinent neurological disorder. There was no significant cardiovascular disease. Review of Systems Review of Systems: No recent cold or flu-like illness or significant headaches PMFSH Past Medical History Medical History Depression, major, recurrent, severe with psychosis PTSD (post-traumatic stress disorder) Social History Social History Household Members: Family Housing: Apartment Do you presently have visiting nurse or other home services: No Alcohol intake: unknown Patient Tobacco Use Status: Former Tobacco user Tobacco use type: Cigarette Smoked in Last 30 Days: No e-Cigarette/Vaping Use: Never Used Patient Interested in Nicotine Replacement: No Patient Given Instructions on How to Stop Smoking: No Second Hand Smoke Exposure: No Use of substances other than those prescribed or required for medical reasons: No Currently Displaying Signs/Symptoms of Drug Intoxication Withdrawal: No [employer] Healthcare Practices: none currently Advance Directives: No Advance Directives Information Provided: No Healthcare Proxy: No Guardian: No Do you have thoughts of harming others: None Do you have a plan to hurt others: No Plan Recently lost weight without trying: Yes How much weight loss: 34pounds or more Eating poorly because of decreased appetite: Yes Nutrition screen score: 7 Patient : No : No Poor oral hygiene: No service: No Sexual orientation: Straight/Heterosexual Meds Allergies Allergy/AdvReac Type Severity Reaction Status Date / Time aspirin [ASA] Allergy Severe Anaphylaxis Verified 09/22/22 09:22 Penicillins Allergy Severe Anaphylaxis Verified 09/22/22 09:22 Sulfa (Sulfonamide Allergy Difficulty Verified 03/17/22 12:18 Antibiotics) Breathing haloperidol [From Haldol] AdvReac Severe eps, td Verified 09/22/22 09:22 aripiprazole [From Abilify] AdvReac eps,td Verified 09/20/22 15:59 Active Medications: Current Medications Acetaminophen (Acetaminophen 325 Mg Tablet) 650 mg PO Q6H PRN PRN Reason: Headache/Pain Mild Scale (1-3) Last Admin: 09/21/22 18:57 Dose: 650 mg Al Hydroxide/Mg Hydroxide (Magnesium Hydrox/Alum Hydrox 30 Ml Oral.Susp) 30 ml PO Q6H PRN PRN Reason: Heartburn/Nausea Benztropine Mesylate (Benztropine Mesylate 1 Mg Tablet) 1 mg PO TID [facility] Last Admin: 09/29/22 14:09 Dose: 1 mg Buspirone HCl (Buspirone Hcl 10 Mg Tablet) 10 mg PO BID [facility] Last Admin: 09/29/22 08:18 Dose: 10 mg Gabapentin (Gabapentin 300 Mg Capsule) 300 mg PO TID PRN PRN Reason: Anxiety Last Admin: 09/19/22 17:18 Dose: 300 mg Hydroxyzine HCl (Hydroxyzine Hcl 25 Mg Tablet) 25 mg PO Q6H PRN PRN Reason: Anxiety Last Admin: 09/23/22 16:47 Dose: 25 mg Magnesium Hydroxide (Milk Of Magnesia 30 Ml Oral.Susp) 30 ml PO DAILY PRN PRN Reason: Constipation Last Admin: 09/27/22 20:33 Dose: 30 ml Mirtazapine (Mirtazapine 30 Mg Tablet) 30 mg PO BEDTIME [facility] Last Admin: 09/28/22 20:22 Dose: 30 mg Olanzapine (Olanzapine 5 Mg Tablet) 25 mg PO BEDTIME [facility] Last Admin: 09/28/22 20:22 Dose: 25 mg Oxcarbazepine (Oxcarbazepine 300 Mg Tablet) 300 mg PO TID [facility] Last Admin: 09/29/22 14:09 Dose: 300 mg Prazosin HCl (Prazosin Hcl 1 Mg Capsule) 2 mg PO BEDTIME [facility]; Protocol Last Admin: 09/28/22 20:23 Dose: 2 mg Risperidone (Risperidone 0.5 Mg Tablet) 0.5 mg PO BID PRN PRN Reason: Anxiety Trazodone HCl (Trazodone Hcl 50 Mg Tablet) 50 mg PO BEDTIME PRN PRN Reason: Insomnia Home Medications Medication Instructions Recorded Confirmed Last Taken Type aripiprazole 20 mg tablet 1 tab PO BEDTIME depressive 09/16/22 09/17/22 Unknown History disorder benztropine 1 mg tablet 1 tab PO TID 09/16/22 09/17/22 Unknown History buspirone 10 mg tablet 1 tab PO BID 09/16/22 09/16/22 Unknown History desvenlafaxine succinate 50 mg 1 tab PO DAILY 09/16/22 09/17/22 Unknown History tablet,extended release 24 hr gabapentin 300 mg capsule 1 cap PO TID PRN Anxiety 09/16/22 09/16/22 Unknown History mirtazapine 30 mg tablet 1 tab PO BEDTIME 09/16/22 09/16/22 Unknown History oxcarbazepine 300 mg tablet 1 tab PO BID 09/16/22 09/16/22 Unknown History prazosin 1 mg capsule 2 cap PO BEDTIME 09/16/22 09/16/22 Unknown History prazosin 5 mg capsule 1 cap PO BEDTIME 09/16/22 09/16/22 Unknown History risperidone 0.5 mg tablet 1 tab PO BID PRN Anxiety 09/17/22 09/17/22 Unknown History Physical Exam Vital Signs: Vital Signs: Last Vital Signs Temp 97.1 F 09/29/22 08:45 Pulse 93 09/29/22 08:45 Resp 16 09/29/22 08:45 BP 125/83 09/29/22 08:45 Pulse Ox 99 09/29/22 08:45 O2 Del Method 09/29/22 08:45 BMI result Body Mass Index 29.5 Neuro: Other: She is alert and awake with normal spontaneity of speech fluency comprehension and flat affect. Face is symmetrical. Visual le are full. Extraocular muscles are intact. There is no focal weakness. Deep tendon reflexes were trace with flexor plantars. Speech is normal. She has been walking normally. Results Labs 09/16/22 17:17 09/16/22 17:17 Labs: Noncontrast head CT did not reveal any significant abnormality other than minimal bifrontal cortical atrophy Assessment and Plan (1) PTSD (post-traumatic stress disorder): Status: Acute 56 years old woman with chronic behavioral disorder including PTSD related to a family member exposed to trauma and dying. Her neurological examination is nonfocal. Head CT is okay. EEG did not reveal any epileptic tendency. At this time there is no contraindication for electroconvulsive therapy. Time Spent With Patient Time: Total time managing care of this patient today ____ minutes. Procedures Date of Service Date of Service: 09/29/22
--- NOTE | 2022-09-29 16:19 | P.PNPSI_ITS ---
Subjective Subjective Date of Service: 09/29/22 Reason For Visit: Depression w/ Psychosis, SI Subjective Notes: Conditional Voluntary Healthcare Proxy: No Guardianship: No Medical Problems Affecting Mental Status: No Interim History: Testing exit doors, believes she needs to get to court to protect her sister. Awake at 4:15am. Neurology has cleared pt for ECT. Family meeting 09/30 to discuss beginning ECT treatment next week. Medication Compliance: Yes Side effects from medications: No Attending Groups: Intermittent Review of Systems Acute medical concerns: No Medical Review of Systems: unchanged Mental Status Exam Mental Status Exam Patient Appearance: Appropriate Patient Orientation: Person and Place Level of Consciousness: Alert Patient Behavior: Talkative, Passive, Anxious and Good Eye Contact Mood Description: Depressed and Flat Affect Description: Flat Patient Cognition Impaired: Yes Ability to Follow Directions: Fair Speech Pattern: Spontaneous Speech and Long Pauses Memory Description: Remote Impaired Perceptual Disturbances: Depersonalization and Derealization Thought Process: Distracted, Rumination, Slowed Thinking and Confusion Thought Content: positive for [place], positive for Circumstantial, positive for Perseveration, positive for Poverty of Content, positive for Preoccupation and positive for Slowed Thinking Depressive Symptoms: Increased Anxiety, Insomnia, Diff. Making Decisions, Difficulty Sleeping, Isolating-Friends/Family, Feelings of Guilt, Unhappiness, Increased Fatigue, Low Self Esteem, Loss of Energy and Difficulty Concentrating Abnormal Motor Activity Signs and Symptoms: Restlessness Judgement: Poor Diagnostics Vital Signs (24Hr): Vital Signs - 24 hr 09/28/22 18:00 09/29/22 08:45 Temperature 97.2 F 97.1 F Pulse Rate 80 93 Respiratory Rate 18 16 Blood Pressure 126/74 125/83 Pulse Oximetry 98 99 Oxygen Delivery Method Room Air Room Air BMI result Body Mass Index 29.5 Labs 09/16/22 17:17 09/16/22 17:17 Imaging Radiology Impressions: ITS Impressions Head CT 09/22/22 08:14 IMPRESSION: No acute intracranial process seen. Medications Medications Current Medications Acetaminophen (Acetaminophen 325 Mg Tablet) 650 mg PO Q6H PRN PRN Reason: Headache/Pain Mild Scale (1-3) Last Admin: 09/21/22 18:57 Dose: 650 mg Al Hydroxide/Mg Hydroxide (Magnesium Hydrox/Alum Hydrox 30 Ml Oral.Susp) 30 ml PO Q6H PRN PRN Reason: Heartburn/Nausea Benztropine Mesylate (Benztropine Mesylate 1 Mg Tablet) 1 mg PO TID MALLORY Last Admin: 09/29/22 14:09 Dose: 1 mg Buspirone HCl (Buspirone Hcl 10 Mg Tablet) 10 mg PO BID MALLORY Last Admin: 09/29/22 08:18 Dose: 10 mg Gabapentin (Gabapentin 300 Mg Capsule) 300 mg PO TID PRN PRN Reason: Anxiety Last Admin: 09/19/22 17:18 Dose: 300 mg Hydroxyzine HCl (Hydroxyzine Hcl 25 Mg Tablet) 25 mg PO Q6H PRN PRN Reason: Anxiety Last Admin: 09/23/22 16:47 Dose: 25 mg Magnesium Hydroxide (Milk Of Magnesia 30 Ml Oral.Susp) 30 ml PO DAILY PRN PRN Reason: Constipation Last Admin: 09/27/22 20:33 Dose: 30 ml Mirtazapine (Mirtazapine 30 Mg Tablet) 30 mg PO BEDTIME MALLORY Last Admin: 09/28/22 20:22 Dose: 30 mg Olanzapine (Olanzapine 5 Mg Tablet) 25 mg PO BEDTIME MALLORY Last Admin: 09/28/22 20:22 Dose: 25 mg Oxcarbazepine (Oxcarbazepine 300 Mg Tablet) 300 mg PO TID MALLORY Last Admin: 09/29/22 14:09 Dose: 300 mg Prazosin HCl (Prazosin Hcl 1 Mg Capsule) 2 mg PO BEDTIME MALLORY; Protocol Last Admin: 09/28/22 20:23 Dose: 2 mg Risperidone (Risperidone 0.5 Mg Tablet) 0.5 mg PO BID PRN PRN Reason: Anxiety Trazodone HCl (Trazodone Hcl 50 Mg Tablet) 50 mg PO BEDTIME PRN PRN Reason: Insomnia Allergies Allergies Allergy/AdvReac Type Severity Reaction Status Date / Time aspirin [ASA] Allergy Severe Anaphylaxis Verified 09/22/22 09:22 Penicillins Allergy Severe Anaphylaxis Verified 09/22/22 09:22 Sulfa (Sulfonamide Allergy Difficulty Verified 03/17/22 12:18 Antibiotics) Breathing haloperidol [From Haldol] AdvReac Severe eps, td Verified 09/22/22 09:22 aripiprazole [From Abilify] AdvReac eps,td Verified 09/20/22 15:59 Assessment & Plan Assessment & Plan (1) PTSD (post-traumatic stress disorder): Status: Acute Code(s): F43.10 - Post-traumatic stress disorder, unspecified Assessment and Plan: 56 years old woman with chronic behavioral disorder including PTSD related to a family member exposed to trauma and dying. Her neurological examination is nonfocal. Head CT is okay. EEG did not reveal any epileptic tendency. At this time there is no contraindication for electroconvulsive therapy. Plan 09/29/22: Seen by Dr. Huang who believes ECT will be helpful in sx mgt. Neurology consult appreciated. Family meeting 09/30 to hopefully begin 10/03. Patient educated on: therapeutic strategies and other Informed Consent: further education needed Reason for contiued inpatient stay Substantial Risk for: inability to function and rapid decompensation Time Spent With Patient Time: Total time managing care of this patient today 30 minutes.
[2022-09-29 20:43] VITALS: BP 133/75; PULSE 93; RESP 14; TEMP 36.4
[2022-09-29] MEDS: Milk of Magnesia 30 ML ORAL.SUSP PO (20:48)
[2022-09-29] MEDS: Prazosin HCL 1 MG CAPSULE 2 MG PO (20:48)
[2022-09-29] MEDS: OLANZapine 5 MG TABLET 25 MG PO (20:48)
[2022-09-29] MEDS: Mirtazapine 30 MG TABLET PO (20:49)
[2022-09-30] MEDS: OXcarbazepine 300 MG TABLET PO (08:13)
[2022-09-30] MEDS: Benztropine Mesylate 1 MG TABLET PO ×3 (08:13→20:57)
[2022-09-30] MEDS: busPIRone HCl 10 MG TABLET PO ×2 (08:13→20:57)
[2022-09-30 08:49] VITALS: BP 139/84; PULSE 81; RESP 16; TEMP 36.1; O2SAT 96
--- NOTE | 2022-09-30 09:49 | ECG_ITS ---
Test Reason : infarct on prev ekg Blood Pressure : / mmHG Vent. 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
[2022-09-30 10:27] LABS: MANUAL DIFF FLAG NO
[2022-09-30 10:35] LABS: Basophils Percent Auto 0.5 % (0-2); Eosinophils Absolute Auto 0.1 X10*3/uL (0.0-0.4); Eosinophils Percent Auto 0.9 % (0-4); Hemoglobin 13.1 g/dl (12.0-16.0); Imm Gran Abs Auto 0.02 X10*3/uL (0.00-0.03); Imm Gran Pct Auto 0.4 % (0.0-0.4); Lymphocytes Absolute Auto 2.1 X10*3/uL (1.2-4.9); Lymphocytes Percent Auto 37.9 % (20-40); Mean Corpuscular HGB Conc 33.6 g/dl (31.0-35.0); Mean Corpuscular Hemoglobin 30.2 pg (27.0-33.0); Mean Corpuscular Volume 89.9 fL (80.0-98.0); Mean Platelet Volume 10.2 fL (9.4-12.3); Monocytes Absolute Auto 0.4 X10*3/uL (0.1-1.2); Monocytes Percent Auto 6.8 % (2-11); Neutrophils Percent Auto 53.5 % (45-73); Platelet Count 264 X10*3/uL (160-400); Red Blood Count 4.34 X10*6/uL (4.20-5.50); White Blood Count 5.6 X10*3/uL (4.8-10.8)
--- NOTE | 2022-09-30 10:56 | P.EN_ITS ---
Event Note Date of Service: 09/30/22 Event Note: Medication Trials: Sources, [facility], [facility], [facility] Daughter Nicci will look for a list, as today she is ill with a sore throat and cannot talk Lorenzo Ruby Gabapentin, Trileptal Remeron Olanzapine, Risperdal, Abilify, Haldol Prazosin Venlafaxine, Desvenlafaxine Jillian Cespedes Requip Time Spent With Patient Time: Total time managing care of this patient today ____ minutes.
[2022-09-30 11:28] LABS: Alanine Aminotransferase 16 U/L (0-31); Albumin Level 3.9 g/dL (3.5-5.0); Alkaline Phosphatase 83 U/L (39-117); Anion Gap 17 (12-20); Aspartate Amino Transferase 14 U/L (5-31); Bilirubin Total 0.5 mg/dL (0.0-1.0); Blood Urea Nitrogen 17 mg/dL (9-16); Calcium 8.8 mg/dL (8.4-10.2); Carbon Dioxide 21 mmol/L (22-29); Chloride 105 mmol/L (96-108); Estimated Glomerular Filt Rate > 60; Glucose Random 186 mg/dL (60-115); Potassium 4.9 mmol/L (3.3-5.1); Sodium 138 mmol/L (135-145); Total Protein 6.2 g/dL (6.5-8.0)
[2022-09-30] MEDS: OXcarbazepine 150 MG TABLET PO ×2 (14:28→20:57)
--- NOTE | 2022-09-30 14:28 | HO.PM.IMCN ---
History of Present Illness Data of Consult Service Date: 09/30/22 Primary Care Provider: Unknown Physician HPI Reason for consult: ECT clearance Pt is [id number] old female with a PMH significant for PTSD and depression who is seen for ECT clearance. Patient denies a PMH cerebral hemorrhage or stroke, CAD, space-occupying intracranial lesion, bleeding or otherwise unstable vascular aneurysm, seizure, TBI, and severe pulmonary condition. Patient has a history of asthma well-controlled with home rescue inhalers; patient has not been hospitalized for an asthma exacerbation since when she was little, and last used her inhaler 5 months ago. The patient denies any past problems with anesthesia. EKG negative for acute ischemia and prolonged QTc. Patient denies chest pain/pressure, SOB, dizziness or lightheadedness. No abdominal pain, hematochezia, melena. Review of Systems Review of Systems: No chest pain/pressure, palpitations Denies shortness of breath No nausea, vomiting, fever, chills, diarrhea, abdominal pain No headache, vision changes Yes all other systems are reviewed and are negative [facility] Medical History Depression, major, recurrent, severe with psychosis PTSD (post-traumatic stress disorder) Social History Household Members: Family Housing: Apartment Do you presently have visiting nurse or other home services: No Alcohol intake: unknown Patient Tobacco Use Status: Former Tobacco user Tobacco use type: Cigarette Smoked in Last 30 Days: No e-Cigarette/Vaping Use: Never Used Patient Interested in Nicotine Replacement: No Patient Given Instructions on How to Stop Smoking: No Second Hand Smoke Exposure: No Use of substances other than those prescribed or required for medical reasons: No Currently Displaying Signs/Symptoms of Drug Intoxication Withdrawal: No [facility] Practices: none currently Advance Directives: No Advance Directives Information Provided: No Healthcare Proxy: No Guardian: No Do you have thoughts of harming others: None Do you have a plan to hurt others: No Plan Recently lost weight without trying: Yes How much weight loss: 34pounds or more Eating poorly because of decreased appetite: Yes Nutrition screen score: 7 Patient : No : No Poor oral hygiene: No service: No Sexual orientation: Straight/Heterosexual Meds Allergies Allergy/AdvReac Type Severity Reaction Status Date / Time aspirin [ASA] Allergy Severe Anaphylaxis Verified 09/22/22 09:22 Penicillins Allergy Severe Anaphylaxis Verified 09/22/22 09:22 Sulfa (Sulfonamide Allergy Difficulty Verified 03/17/22 12:18 Antibiotics) Breathing haloperidol [From Haldol] AdvReac Severe eps, td Verified 09/22/22 09:22 aripiprazole [From Abilify] AdvReac eps,td Verified 09/20/22 15:59 Active Medications: Current Medications Acetaminophen (Acetaminophen 325 Mg Tablet) 650 mg PO Q6H PRN PRN Reason: Headache/Pain Mild Scale (1-3) Last Admin: 09/21/22 18:57 Dose: 650 mg Al Hydroxide/Mg Hydroxide (Magnesium Hydrox/Alum Hydrox 30 Ml Oral.Susp) 30 ml PO Q6H PRN PRN Reason: Heartburn/Nausea Benztropine Mesylate (Benztropine Mesylate 1 Mg Tablet) 1 mg PO TID MALLORY Last Admin: 09/30/22 08:13 Dose: 1 mg Buspirone HCl (Buspirone Hcl 10 Mg Tablet) 10 mg PO BID MALLORY Last Admin: 09/30/22 08:13 Dose: 10 mg Gabapentin (Gabapentin 300 Mg Capsule) 300 mg PO TID PRN PRN Reason: Anxiety Last Admin: 09/19/22 17:18 Dose: 300 mg Hydroxyzine HCl (Hydroxyzine Hcl 25 Mg Tablet) 25 mg PO Q6H PRN PRN Reason: Anxiety Last Admin: 09/23/22 16:47 Dose: 25 mg Magnesium Hydroxide (Milk Of Magnesia 30 Ml Oral.Susp) 30 ml PO DAILY PRN PRN Reason: Constipation Last Admin: 09/29/22 20:48 Dose: 30 ml Mirtazapine (Mirtazapine 30 Mg Tablet) 30 mg PO BEDTIME MALLORY Last Admin: 09/29/22 20:49 Dose: 30 mg Olanzapine (Olanzapine 5 Mg Tablet) 25 mg PO BEDTIME MALLORY Last Admin: 09/29/22 20:48 Dose: 25 mg Oxcarbazepine (Oxcarbazepine 150 Mg Tablet) 150 mg PO TID MALLROY Prazosin HCl (Prazosin Hcl 1 Mg Capsule) 2 mg PO BEDTIME MALLORY; Protocol Last Admin: 09/29/22 20:48 Dose: 2 mg Risperidone (Risperidone 0.5 Mg Tablet) 0.5 mg PO BID PRN PRN Reason: Anxiety Trazodone HCl (Trazodone Hcl 50 Mg Tablet) 50 mg PO BEDTIME PRN PRN Reason: Insomnia Home Medications Medication Instructions Recorded Confirmed Last Taken Type aripiprazole 20 mg tablet 1 tab PO BEDTIME depressive 09/16/22 09/17/22 Unknown History disorder benztropine 1 mg tablet 1 tab PO TID 09/16/22 09/17/22 Unknown History buspirone 10 mg tablet 1 tab PO BID 09/16/22 09/16/22 Unknown History desvenlafaxine succinate 50 mg 1 tab PO DAILY 09/16/22 09/17/22 Unknown History tablet,extended release 24 hr gabapentin 300 mg capsule 1 cap PO TID PRN Anxiety 09/16/22 09/16/22 Unknown History mirtazapine 30 mg tablet 1 tab PO BEDTIME 09/16/22 09/16/22 Unknown History oxcarbazepine 300 mg tablet 1 tab PO BID 09/16/22 09/16/22 Unknown History prazosin 1 mg capsule 2 cap PO BEDTIME 09/16/22 09/16/22 Unknown History prazosin 5 mg capsule 1 cap PO BEDTIME 09/16/22 09/16/22 Unknown History risperidone 0.5 mg tablet 1 tab PO BID PRN Anxiety 09/17/22 09/17/22 Unknown History Physical Exam Vital Signs and Narrative: Vital Signs: Last Vital Signs Temp 96.9 F 09/30/22 08:49 Pulse 81 09/30/22 08:49 Resp 16 09/30/22 08:49 BP 139/84 09/30/22 08:49 Pulse Ox 96 09/30/22 08:49 O2 Del Method 09/30/22 08:49 BMI result Body Mass Index 29.5 General: AOx3, no acute distress Resp: CTA bilaterally CVS: S1, S2, RRR GI: +BS, NT, no distention Skin: No rash Neuro: Cranial nerves II-XII grossly intact. Motor grossly intact Extremities: No edema Psych: Flat affect Results Labs 09/30/22 10:22 09/30/22 10:58 Labs: Laboratory Results - last 24 hr 09/30/22 09/30/22 10:22 10:58 MCV 89.9 MCH 30.2 MCHC 33.6 RDW 13.0 Plt Count 264 MPV 10.2 Immature Gran % (Auto) 0.4 Neut % (Auto) 53.5 Lymph % (Auto) 37.9 [place] % (Auto) 6.8 Eos % (Auto) 0.9 Baso % (Auto) 0.5 Lymph # (Auto) 2.1 [place] # (Auto) 0.4 Eos # (Auto) 0.1 Baso # (Auto) 0.0 Abs Immat Gran (auto) 0.02 Absolute Neuts (auto) 3.0 Absolute Nucleated RBC 0.000 Nucleated RBC % (auto) 0.0 Anion Gap 17 Estim Creat Clear Calc 85.0 Estimated GFR > 60 Random Glucose 186 H Calcium 8.8 Total Bilirubin 0.5 AST 14 ALT 16 Alkaline Phosphatase 83 Total Protein 6.2 L Albumin 3.9 Assessment and Plan (1) Routine history and physical examination of adult: Status: Acute Plan Pt is [id number] old female with a PMH significant for PTSD and depression who is seen for ECT clearance. Patient denies a PMH cerebral hemorrhage or stroke, CAD, space-occupying intracranial lesion, bleeding or otherwise unstable vascular aneurysm, seizure, TBI, and severe pulmonary condition. Patient has a history of asthma well-controlled with home rescue inhalers; patient has not been hospitalized for an asthma exacerbation since when she was little, and last used her inhaler 5 months ago. The patient denies any past problems with anesthesia. EKG negative for acute ischemia and prolonged QTc. Patient denies chest pain/pressure, SOB, dizziness or lightheadedness. No abdominal pain, hematochezia, melena. There are no obvious medical contraindications to the planned procedure based on exam and patient history. They for allowing me to participate in this consult. Sign off at this time. Please let us know if there are any additional questions or concerns. Time Spent With Patient Time: Total time managing care of this patient today ____ minutes.
--- NOTE | 2022-09-30 15:52 | HO.PSYCHPN ---
Subjective Subjective Date of Service: 09/30/22 Reason For Visit: Depression w/ Psychosis, SI Subjective Notes: Conditional Voluntary Healthcare Proxy: No Guardianship: No Medical Problems Affecting Mental Status: No Interim History: Family did not come in to discuss ECT, so treatment is postponed. List of med trials completed, daughter reports she is too ill to discuss trials or meet today. Son did not come in to visit or respond to calls. Pt still believes she needs to get downstairs to sign court papers for her sister. Re-oriented several times with some relief Medication Compliance: Yes Side effects from medications: No Attending Groups: Intermittent Review of Systems Acute medical concerns: No Medical Review of Systems: unchanged Mental Status Exam Mental Status Exam Patient Appearance: Appropriate Patient Orientation: Person and Place Level of Consciousness: Alert Patient Behavior: Talkative, Passive, Anxious and Good Eye Contact Mood Description: Depressed and Flat Affect Description: Flat Patient Cognition Impaired: Yes Ability to Follow Directions: Fair Speech Pattern: Spontaneous Speech and Long Pauses Memory Description: Remote Impaired Perceptual Disturbances: Depersonalization and Derealization Thought Process: Distracted, Rumination, Slowed Thinking and Confusion Thought Content: positive for [place], positive for Circumstantial, positive for Perseveration, positive for Poverty of Content, positive for Preoccupation and positive for Slowed Thinking Depressive Symptoms: Increased Anxiety, Insomnia, Diff. Making Decisions, Difficulty Sleeping, Isolating-Friends/Family, Feelings of Guilt, Unhappiness, Increased Fatigue, Low Self Esteem, Loss of Energy and Difficulty Concentrating Abnormal Motor Activity Signs and Symptoms: Restlessness Judgement: Poor Diagnostics Vital Signs (24Hr): Vital Signs - 24 hr 09/29/22 20:43 09/30/22 08:49 Temperature 97.5 F 96.9 F Pulse Rate 93 81 Respiratory Rate 14 16 Blood Pressure 133/75 139/84 Pulse Oximetry 96 Oxygen Delivery Method Room Air BMI result Body Mass Index 29.5 Labs 09/30/22 10:22 09/30/22 10:58 Labs: Laboratory Results - last 48 hr 09/30/22 09/30/22 10:22 10:58 WBC 5.6 RBC 4.34 Hgb 13.1 Hct 39.0 MCV 89.9 MCH 30.2 MCHC 33.6 RDW 13.0 Plt Count 264 MPV 10.2 Immature Gran % (Auto) 0.4 Neut % (Auto) 53.5 Lymph % (Auto) 37.9 [place] % (Auto) 6.8 Eos % (Auto) 0.9 Baso % (Auto) 0.5 Lymph # (Auto) 2.1 [place] # (Auto) 0.4 Eos # (Auto) 0.1 Baso # (Auto) 0.0 Abs Immat Gran (auto) 0.02 Absolute Neuts (auto) 3.0 Absolute Nucleated RBC 0.000 Nucleated RBC % (auto) 0.0 Sodium 138 Potassium 4.9 Chloride 105 Carbon Dioxide 21 L Anion Gap 17 BUN 17 H Creatinine 0.71 Estim Creat Clear Calc 85.0 Estimated GFR > 60 Random Glucose 186 H Calcium 8.8 Total Bilirubin 0.5 AST 14 ALT 16 Alkaline Phosphatase 83 Total Protein 6.2 L Albumin 3.9 Imaging Radiology Impressions: ITS Impressions Head CT 09/22/22 08:14 IMPRESSION: No acute intracranial process seen. Medications Medications Current Medications Acetaminophen (Acetaminophen 325 Mg Tablet) 650 mg PO Q6H PRN PRN Reason: Headache/Pain Mild Scale (1-3) Last Admin: 09/21/22 18:57 Dose: 650 mg Al Hydroxide/Mg Hydroxide (Magnesium Hydrox/Alum Hydrox 30 Ml Oral.Susp) 30 ml PO Q6H PRN PRN Reason: Heartburn/Nausea Benztropine Mesylate (Benztropine Mesylate 1 Mg Tablet) 1 mg PO TID MALLORY Last Admin: 09/30/22 14:28 Dose: 1 mg Buspirone HCl (Buspirone Hcl 10 Mg Tablet) 10 mg PO BID [facility] Last Admin: 09/30/22 08:13 Dose: 10 mg Gabapentin (Gabapentin 300 Mg Capsule) 300 mg PO TID PRN PRN Reason: Anxiety Last Admin: 09/19/22 17:18 Dose: 300 mg Hydroxyzine HCl (Hydroxyzine Hcl 25 Mg Tablet) 25 mg PO Q6H PRN PRN Reason: Anxiety Last Admin: 09/23/22 16:47 Dose: 25 mg Magnesium Hydroxide (Milk Of Magnesia 30 Ml Oral.Susp) 30 ml PO DAILY PRN PRN Reason: Constipation Last Admin: 09/29/22 20:48 Dose: 30 ml Mirtazapine (Mirtazapine 30 Mg Tablet) 30 mg PO BEDTIME MALLORY Last Admin: 09/29/22 20:49 Dose: 30 mg Olanzapine (Olanzapine 5 Mg Tablet) 25 mg PO BEDTIME MALLORY Last Admin: 09/29/22 20:48 Dose: 25 mg Oxcarbazepine (Oxcarbazepine 150 Mg Tablet) 150 mg PO TID MALLORY Last Admin: 09/30/22 14:28 Dose: 150 mg Prazosin HCl (Prazosin Hcl 1 Mg Capsule) 2 mg PO BEDTIME MALLORY; Protocol Last Admin: 09/29/22 20:48 Dose: 2 mg Risperidone (Risperidone 0.5 Mg Tablet) 0.5 mg PO BID PRN PRN Reason: Anxiety Trazodone HCl (Trazodone Hcl 50 Mg Tablet) 50 mg PO BEDTIME PRN PRN Reason: Insomnia Allergies Allergies Allergy/AdvReac Type Severity Reaction Status Date / Time aspirin [ASA] Allergy Severe Anaphylaxis Verified 09/22/22 09:22 Penicillins Allergy Severe Anaphylaxis Verified 09/22/22 09:22 Sulfa (Sulfonamide Allergy Difficulty Verified 03/17/22 12:18 Antibiotics) Breathing haloperidol [From Haldol] AdvReac Severe eps, td Verified 09/22/22 09:22 aripiprazole [From Abilify] AdvReac eps,td Verified 09/20/22 15:59 Assessment & Plan Assessment & Plan (1) Routine history and physical examination of adult: Status: Acute Code(s): Z00.00 - Encounter for general adult medical examination without abnormal findings Plan Pt is [id number] old female with a PMH significant for PTSD and depression who is seen for ECT clearance. Patient denies a PMH cerebral hemorrhage or stroke, CAD, space-occupying intracranial lesion, bleeding or otherwise unstable vascular aneurysm, seizure, TBI, and severe pulmonary condition. Patient has a history of asthma well-controlled with home rescue inhalers; patient has not been hospitalized for an asthma exacerbation since when she was little, and last used her inhaler 5 months ago. The patient denies any past problems with anesthesia. EKG negative for acute ischemia and prolonged QTc. Patient denies chest pain/pressure, SOB, dizziness or lightheadedness. No abdominal pain, hematochezia, melena. There are no obvious medical contraindications to the planned procedure based on exam and patient history. They for allowing me to participate in this consult. Sign off at this time. Please let us know if there are any additional questions or concerns. 09/30/22: Increase Olanzapine to 30 mg HS ECT currently on hold as children did not come in for a family meeting. Patient educated on: therapeutic strategies Informed Consent: further education needed Reason for contiued inpatient stay Substantial Risk for: inability to function and rapid decompensation Time Spent With Patient Time: Total time managing care of this patient today 20 minutes.
[2022-09-30 20:55] VITALS: BP 120/78; PULSE 72; RESP 14; TEMP 36.2
[2022-09-30] MEDS: Prazosin HCL 1 MG CAPSULE 2 MG PO (20:56)
[2022-09-30] MEDS: OLANZapine 10 MG TABLET 30 MG PO (20:57)
[2022-09-30] MEDS: Mirtazapine 30 MG TABLET PO (20:57)
--- NOTE | 2022-10-01 00:23 | PC.RT ---
Pt seen for NOC CPAP. per RN no sitter available for pt. Pt unable to go on tonight
[2022-10-01] MEDS: OXcarbazepine 150 MG TABLET PO ×3 (08:21→19:32)
[2022-10-01] MEDS: busPIRone HCl 10 MG TABLET PO ×2 (08:21→19:32)
[2022-10-01] MEDS: Benztropine Mesylate 1 MG TABLET PO ×3 (08:21→19:30)
[2022-10-01 08:23] VITALS: BP 109/73; PULSE 73; RESP 18; TEMP 36.8; O2SAT 98
--- NOTE | 2022-10-01 09:28 | P.PNPSI_ITS ---
Subjective Subjective Date of Service: 10/01/22 Reason For Visit: Depression w/ Psychosis, SI Interim History: Met with patient; review chart; discussed with team Patient reports that she is not good and that she continues to be very depressed. She said that there was consideration about ECT and patient said she was ready to do it. She asked some questions about it and designer/writer provided education. She denies any SI or HI. Mental Status Exam Mental Status Exam Patient Appearance: Appropriate Patient Orientation: Person and Place Level of Consciousness: Alert Patient Behavior: Passive, Anxious and Good Eye Contact Mood Description: Depressed and Flat Affect Description: Flat Patient Cognition Impaired: Yes Ability to Follow Directions: Fair Speech Pattern: Spontaneous Speech and Long Pauses Memory Description: Remote Impaired Perceptual Disturbances: Depersonalization and Derealization Thought Process: Goal Oriented and Slowed Thinking Thought Content: positive for [place], positive for Circumstantial and positive for Poverty of Content (Denies SI or HI) Depressive Symptoms: Increased Anxiety, Insomnia, Diff. Making Decisions, Difficulty Sleeping, Isolating-Friends/Family, Feelings of Guilt, Unhappiness, Increased Fatigue, Low Self Esteem, Loss of Energy and Difficulty Concentrating Abnormal Motor Activity Signs and Symptoms: Restlessness Judgement: Poor Diagnostics Vital Signs (24Hr): Vital Signs - 24 hr 09/30/22 20:55 10/01/22 08:23 Temperature 97.1 F 98.2 F Pulse Rate 72 73 Respiratory Rate 14 18 Blood Pressure 120/78 109/73 Pulse Oximetry 98 Oxygen Delivery Method Room Air BMI result Body Mass Index 29.5 Labs 09/30/22 10:22 09/30/22 10:58 Labs: Laboratory Results - last 48 hr 09/30/22 09/30/22 10:22 10:58 WBC 5.6 RBC 4.34 Hgb 13.1 Hct 39.0 MCV 89.9 MCH 30.2 MCHC 33.6 RDW 13.0 Plt Count 264 MPV 10.2 Immature Gran % (Auto) 0.4 Neut % (Auto) 53.5 Lymph % (Auto) 37.9 [place] % (Auto) 6.8 Eos % (Auto) 0.9 Baso % (Auto) 0.5 Lymph # (Auto) 2.1 [place] # (Auto) 0.4 Eos # (Auto) 0.1 Baso # (Auto) 0.0 Abs Immat Gran (auto) 0.02 Absolute Neuts (auto) 3.0 Absolute Nucleated RBC 0.000 Nucleated RBC % (auto) 0.0 Sodium 138 Potassium 4.9 Chloride 105 Carbon Dioxide 21 L Anion Gap 17 BUN 17 H Creatinine 0.71 Estim Creat Clear Calc 85.0 Estimated GFR > 60 Random Glucose 186 H Calcium 8.8 Total Bilirubin 0.5 AST 14 ALT 16 Alkaline Phosphatase 83 Total Protein 6.2 L Albumin 3.9 Imaging Radiology Impressions: ITS Impressions Head CT 09/22/22 08:14 IMPRESSION: No acute intracranial process seen. Medications Medications Current Medications Acetaminophen (Acetaminophen 325 Mg Tablet) 650 mg PO Q6H PRN PRN Reason: Headache/Pain Mild Scale (1-3) Last Admin: 09/21/22 18:57 Dose: 650 mg Al Hydroxide/Mg Hydroxide (Magnesium Hydrox/Alum Hydrox 30 Ml Oral.Susp) 30 ml PO Q6H PRN PRN Reason: Heartburn/Nausea Benztropine Mesylate (Benztropine Mesylate 1 Mg Tablet) 1 mg PO TID MALLORY Last Admin: 10/01/22 08:21 Dose: 1 mg Buspirone HCl (Buspirone Hcl 10 Mg Tablet) 10 mg PO BID MALLORY Last Admin: 10/01/22 08:21 Dose: 10 mg Gabapentin (Gabapentin 300 Mg Capsule) 300 mg PO TID PRN PRN Reason: Anxiety Last Admin: 09/19/22 17:18 Dose: 300 mg Hydroxyzine HCl (Hydroxyzine Hcl 25 Mg Tablet) 25 mg PO Q6H PRN PRN Reason: Anxiety Last Admin: 09/23/22 16:47 Dose: 25 mg Magnesium Hydroxide (Milk Of Magnesia 30 Ml Oral.Susp) 30 ml PO DAILY PRN PRN Reason: Constipation Last Admin: 09/29/22 20:48 Dose: 30 ml Mirtazapine (Mirtazapine 30 Mg Tablet) 30 mg PO BEDTIME MALLORY Last Admin: 09/30/22 20:57 Dose: 30 mg Olanzapine (Olanzapine 10 Mg Tablet) 30 mg PO BEDTIME MALLORY Last Admin: 09/30/22 20:57 Dose: 30 mg Oxcarbazepine (Oxcarbazepine 150 Mg Tablet) 150 mg PO TID MALLORY Last Admin: 10/01/22 08:21 Dose: 150 mg Prazosin HCl (Prazosin Hcl 1 Mg Capsule) 2 mg PO BEDTIME MALLORY; Protocol Last Admin: 09/30/22 20:56 Dose: 2 mg Risperidone (Risperidone 0.5 Mg Tablet) 0.5 mg PO BID PRN PRN Reason: Anxiety Trazodone HCl (Trazodone Hcl 50 Mg Tablet) 50 mg PO BEDTIME PRN PRN Reason: Insomnia Allergies Allergies Allergy/AdvReac Type Severity Reaction Status Date / Time aspirin [ASA] Allergy Severe Anaphylaxis Verified 09/22/22 09:22 Penicillins Allergy Severe Anaphylaxis Verified 09/22/22 09:22 Sulfa (Sulfonamide Allergy Difficulty Verified 03/17/22 12:18 Antibiotics) Breathing haloperidol [From Haldol] AdvReac Severe eps, td Verified 09/22/22 09:22 aripiprazole [From Abilify] AdvReac eps,td Verified 09/20/22 15:59 Assessment & Plan Assessment & Plan (1) PTSD (post-traumatic stress disorder): Status: Acute Code(s): F43.10 - Post-traumatic stress disorder, unspecified (2) MCI (mild cognitive impairment): Status: Acute Code(s): G31.84 - Mild cognitive impairment of uncertain or unknown etiology (3) Depression, major, recurrent, severe with psychosis: Status: Acute Code(s): F33.3 - Major depressive disorder, recurrent, severe with psychotic symptoms Plan 56 yo female, hx PTSD, depression, MCI Sx. Pt has had a difficult year-loss of mother, aunt. She needed to testify at a parole board hearing to keep her sister's killer incarcerated. She has not had PTSD focused care per family and sx have become overwhelming with recent MCI sx and fainting-eval in process for seizures, tumor. 10/01 patient remains depressed; she says she is ready to have ECT. Will reach out to primary team to see if this can start on Monday since patient's ECT this past Monday was postponed due to canceled family meeting. Plan: continue current regime monitor, allow pt to settle in collateral contact continue diagnostics aftercare planning. Patient educated on: diagnosis and ECT Informed Consent: understands and further education needed Reason for contiued inpatient stay Substantial Risk for: inability to function Time Spent With Patient Time: Total time managing care of this patient today ____ minutes.
[2022-10-01 18:00] VITALS: BP 118/76; PULSE 97; TEMP 36.4; O2SAT 97
[2022-10-01] MEDS: Acetaminophen 325 MG TABLET 650 MG PO (19:31)
[2022-10-01] MEDS: Prazosin HCL 1 MG CAPSULE 2 MG PO (19:31)
[2022-10-01] MEDS: Mirtazapine 30 MG TABLET PO (19:31)
[2022-10-01] MEDS: OLANZapine 10 MG TABLET 30 MG PO (19:31)
[2022-10-02 08:05] VITALS: BP 111/79; PULSE 109; RESP 18; TEMP 36.1; O2SAT 96
[2022-10-02] MEDS: OXcarbazepine 150 MG TABLET PO ×3 (08:11→20:20)
[2022-10-02] MEDS: Benztropine Mesylate 1 MG TABLET PO ×3 (08:11→20:21)
[2022-10-02] MEDS: busPIRone HCl 10 MG TABLET PO ×2 (08:11→20:21)
[2022-10-02] MEDS: Milk of Magnesia 30 ML ORAL.SUSP PO (11:28)
--- NOTE | 2022-10-02 13:29 | HO.PSYCHPN ---
Subjective Subjective Date of Service: 10/02/22 Reason For Visit: Depression w/ Psychosis, SI Interim History: Met with Patient; discussed in teams; communicated with primary team who agrees to hold off for ECT for now Patient says she is depressed; denies any SI. Tells staff that she can not remember anything... Patient does know her name and that she is at the hospital but she does not know month or year. Confused to when eating. Patient does say she wants ECT and upon inquiry says it is shock treatment... Mental Status Exam Mental Status Exam Patient Appearance: Appropriate Patient Orientation: Person and Place Level of Consciousness: Alert Patient Behavior: Passive, Wandering, Anxious and Poor Eye Contact Mood Description: Depressed Affect Description: Blunted Patient Cognition Impaired: Yes Ability to Follow Directions: Fair Speech Pattern: Spontaneous Speech and Long Pauses Memory Description: Remote Impaired Perceptual Disturbances: Depersonalization and Derealization Thought Process: Goal Oriented and Slowed Thinking Thought Content: positive for [place], positive for Circumstantial and positive for Poverty of Content (Denies SI or HI) Depressive Symptoms: Increased Anxiety, Insomnia, Diff. Making Decisions, Difficulty Sleeping, Isolating-Friends/Family, Feelings of Guilt, Unhappiness, Increased Fatigue, Low Self Esteem, Loss of Energy and Difficulty Concentrating Abnormal Motor Activity Signs and Symptoms: Restlessness Judgement: Poor Diagnostics Vital Signs (24Hr): Vital Signs - 24 hr 10/01/22 18:00 10/02/22 08:05 Temperature 97.5 F 96.9 F Pulse Rate 97 109 H Respiratory Rate 18 Blood Pressure 118/76 111/79 Pulse Oximetry 97 96 Oxygen Delivery Method Room Air Room Air BMI result Body Mass Index 29.5 Labs 09/30/22 10:22 09/30/22 10:58 Imaging Radiology Impressions: ITS Impressions Head CT 09/22/22 08:14 IMPRESSION: No acute intracranial process seen. Medications Medications Current Medications Acetaminophen (Acetaminophen 325 Mg Tablet) 650 mg PO Q6H PRN PRN Reason: Headache/Pain Mild Scale (1-3) Last Admin: 10/01/22 19:31 Dose: 650 mg Al Hydroxide/Mg Hydroxide (Magnesium Hydrox/Alum Hydrox 30 Ml Oral.Susp) 30 ml PO Q6H PRN PRN Reason: Heartburn/Nausea Benztropine Mesylate (Benztropine Mesylate 1 Mg Tablet) 1 mg PO TID [facility] Last Admin: 10/02/22 08:11 Dose: 1 mg Buspirone HCl (Buspirone Hcl 10 Mg Tablet) 10 mg PO BID [facility] Last Admin: 10/02/22 08:11 Dose: 10 mg Gabapentin (Gabapentin 300 Mg Capsule) 300 mg PO TID PRN PRN Reason: Anxiety Last Admin: 09/19/22 17:18 Dose: 300 mg Hydroxyzine HCl (Hydroxyzine Hcl 25 Mg Tablet) 25 mg PO Q6H PRN PRN Reason: Anxiety Last Admin: 09/23/22 16:47 Dose: 25 mg Magnesium Hydroxide (Milk Of Magnesia 30 Ml Oral.Susp) 30 ml PO DAILY PRN PRN Reason: Constipation Last Admin: 10/02/22 11:28 Dose: 30 ml Mirtazapine (Mirtazapine 30 Mg Tablet) 30 mg PO BEDTIME [facility] Last Admin: 10/01/22 19:31 Dose: 30 mg Olanzapine (Olanzapine 10 Mg Tablet) 30 mg PO BEDTIME [facility] Last Admin: 10/01/22 19:31 Dose: 30 mg Oxcarbazepine (Oxcarbazepine 150 Mg Tablet) 150 mg PO TID [facility] Last Admin: 10/02/22 08:11 Dose: 150 mg Prazosin HCl (Prazosin Hcl 1 Mg Capsule) 2 mg PO BEDTIME [facility]; Protocol Last Admin: 10/01/22 19:31 Dose: 2 mg Risperidone (Risperidone 0.5 Mg Tablet) 0.5 mg PO BID PRN PRN Reason: Anxiety Trazodone HCl (Trazodone Hcl 50 Mg Tablet) 50 mg PO BEDTIME PRN PRN Reason: Insomnia Allergies Allergies Allergy/AdvReac Type Severity Reaction Status Date / Time aspirin [ASA] Allergy Severe Anaphylaxis Verified 09/22/22 09:22 Penicillins Allergy Severe Anaphylaxis Verified 09/22/22 09:22 Sulfa (Sulfonamide Allergy Difficulty Verified 03/17/22 12:18 Antibiotics) Breathing haloperidol [From Haldol] AdvReac Severe eps, td Verified 09/22/22 09:22 aripiprazole [From Abilify] AdvReac eps,td Verified 09/20/22 15:59 Assessment & Plan Assessment & Plan (1) PTSD (post-traumatic stress disorder): Status: Acute Code(s): F43.10 - Post-traumatic stress disorder, unspecified (2) MCI (mild cognitive impairment): Status: Acute Code(s): G31.84 - Mild cognitive impairment of uncertain or unknown etiology (3) Depression, major, recurrent, severe with psychosis: Status: Acute Code(s): F33.3 - Major depressive disorder, recurrent, severe with psychotic symptoms Plan 56 yo female, hx PTSD, depression, MCI Sx. Pt has had a difficult year-loss of mother, aunt. She needed to testify at a parole board hearing to keep her sister's killer incarcerated. She has not had PTSD focused care per family and sx have become overwhelming with recent MCI sx and fainting-eval in process for seizures, tumor. 10/01 patient remains depressed; she says she is ready to have ECT. Will reach out to primary team to see if this can start on Monday since patient's ECT this past Monday was postponed due to canceled family meeting. 10/02 continue current treatment plan; primary team to further discuss ECT Plan: continue current regime monitor, allow pt to settle in collateral contact continue diagnostics aftercare planning. Patient educated on: diagnosis and ECT Informed Consent: further education needed Reason for contiued inpatient stay Substantial Risk for: inability to function Time Spent With Patient Time: Total time managing care of this patient today ____ minutes.
[2022-10-02 18:00] VITALS: BP 134/92; PULSE 94; TEMP 36
[2022-10-02 19:15] VITALS: BP 148/84; PULSE 95
[2022-10-02] MEDS: Prazosin HCL 1 MG CAPSULE 2 MG PO (20:20)
[2022-10-02] MEDS: Mirtazapine 30 MG TABLET PO (20:20)
[2022-10-02] MEDS: OLANZapine 10 MG TABLET 30 MG PO (20:21)
--- NOTE | 2022-10-03 07:42 | MHC.SHP ---
Pre-Procedural Eval Section A Date of Service: 10/03/22 The patient is an INPATIENT: Yes Changes since office visit: No Cold of Flu in the past 2 weeks, No New Medical Problems, No Changes in Medication and No Patient answered all questions The History & Physical has been completed within 30 days and I have reviewed it.: Yes Section B Chief Complaint: Depression w/ Psychosis, SI Details of Present Illness: Hx of depression, PTSD, now with psychosisi, poor jail memory Relevant Family History (Specify if Yes): Yes Relevant Social History: None Present Medications: None Medical History: Significant History History of Previous Operations: No relevant previous surgery Allergies: Allergies Allergy/AdvReac Type Severity Reaction Status Date / Time aspirin [ASA] Allergy Severe Anaphylaxis Verified 09/22/22 09:22 Penicillins Allergy Severe Anaphylaxis Verified 09/22/22 09:22 Sulfa (Sulfonamide Allergy Difficulty Verified 03/17/22 12:18 Antibiotics) Breathing haloperidol [From Haldol] AdvReac Severe eps, td Verified 09/22/22 09:22 aripiprazole [From Abilify] AdvReac eps,td Verified 09/20/22 15:59 Review of Systems Sugical H&P ROS: Negative: Constitution, Cardiovascular, Respiratory, Neurological, Psychiatric, Hem-Onc, Allergic/Immunologic, Gastrointestinal, Genitourinary, Musculoskeletal, Integumentary, Endocrine and Eyes/Ears/Nose/Throat Exam Surgical H&P Exam: Normal: HEENT, Normal: Heart, Normal: Lungs, Normal: Extremities, Normal: Abdomen, Normal: Skin and Normal: Neurological Plan Diagnosis/Plan: Unchanged I have reviewed the history and physical and performed a pertinent physical examination on my patient. No changes have occurred unless specified. Time Spent With Patient Time: Total time managing care of this patient today _15___ minutes.
[2022-10-03 08:40] VITALS: BP 120/79; PULSE 104; TEMP 36; O2SAT 96
[2022-10-03] MEDS: Benztropine Mesylate 1 MG TABLET PO ×3 (09:11→20:17)
[2022-10-03] MEDS: busPIRone HCl 10 MG TABLET PO ×2 (09:11→20:18)
[2022-10-03] MEDS: OXcarbazepine 150 MG TABLET PO ×3 (09:11→20:18)
[2022-10-03] MEDS: hydrOXYzine HCL 25 MG TABLET PO (15:59)
--- NOTE | 2022-10-03 16:18 | HO.PSYCHPN ---
Subjective Subjective Date of Service: 10/03/22 Reason For Visit: Depression w/ Psychosis, SI Subjective Notes: Conditional Voluntary Healthcare Proxy: No Guardianship: No Medical Problems Affecting Mental Status: No Interim History: Pt with intermittent confusion/?dissociation. She continues to express interest in a trial of ECT to treat sx. Daughter reports she is still ill with fever, respiratory infection. She does not want to discuss this over the phone, wants to come in on or Monday to review and make a family decision. Pt given written information in Haitian to review by Dr. Huang Medication Compliance: Yes Side effects from medications: No Attending Groups: No Review of Systems Acute medical concerns: No Medical Review of Systems: unchanged Mental Status Exam Mental Status Exam Patient Appearance: Appropriate Patient Orientation: Person and Place Level of Consciousness: Alert Patient Behavior: Appropriate, Talkative, Cooperative, Passive, Anxious, Distractible, Confused, Isolative and Good Eye Contact Mood Description: Depressed Affect Description: Flat Patient Cognition Impaired: Yes Ability to Follow Directions: Good Speech Pattern: Spontaneous Speech Memory Description: Remote Impaired and Episodic Impaired Hallucinations: None Delusions: Being Controlled and Paranoid Ideation Perceptual Disturbances: Depersonalization and Derealization Thought Process: Rumination and Confusion Thought Content: positive for [place], positive for Circumstantial, positive for Goal Oriented, positive for Perseveration, positive for Poverty of Content, positive for Preoccupation, positive for Thought Blocking, positive for Slowed Thinking, positive for Disorganized and positive for Suicidal Ideation (denies) Depressive Symptoms: Increased Anxiety, Loss of Int. in Activity, Hopelessness, Isolating-Friends/Family, Unhappiness, Increased Fatigue, Low Self Esteem, Loss of Energy and Difficulty Concentrating Judgement: Fair Diagnostics Vital Signs (24Hr): Vital Signs - 24 hr 10/02/22 18:00 10/02/22 19:15 10/03/22 08:40 Temperature 96.8 F 96.8 F Pulse Rate 94 95 104 H Blood Pressure 134/92 H 148/84 H 120/79 Pulse Oximetry 96 Oxygen Delivery Method Room Air BMI result Body Mass Index 29.5 Labs 09/30/22 10:22 09/30/22 10:58 Imaging Radiology Impressions: ITS Impressions Head CT 09/22/22 08:14 IMPRESSION: No acute intracranial process seen. Medications Medications Current Medications Acetaminophen (Acetaminophen 325 Mg Tablet) 650 mg PO Q6H PRN PRN Reason: Headache/Pain Mild Scale (1-3) Last Admin: 10/01/22 19:31 Dose: 650 mg Al Hydroxide/Mg Hydroxide (Magnesium Hydrox/Alum Hydrox 30 Ml Oral.Susp) 30 ml PO Q6H PRN PRN Reason: Heartburn/Nausea Benztropine Mesylate (Benztropine Mesylate 1 Mg Tablet) 1 mg PO TID [facility] Last Admin: 10/03/22 14:57 Dose: 1 mg Buspirone HCl (Buspirone Hcl 10 Mg Tablet) 10 mg PO BID [facility] Last Admin: 10/03/22 09:11 Dose: 10 mg Gabapentin (Gabapentin 300 Mg Capsule) 300 mg PO TID PRN PRN Reason: Anxiety Last Admin: 09/19/22 17:18 Dose: 300 mg Hydroxyzine HCl (Hydroxyzine Hcl 25 Mg Tablet) 25 mg PO Q6H PRN PRN Reason: Anxiety Last Admin: 10/03/22 15:59 Dose: 25 mg Magnesium Hydroxide (Milk Of Magnesia 30 Ml Oral.Susp) 30 ml PO DAILY PRN PRN Reason: Constipation Last Admin: 10/02/22 11:28 Dose: 30 ml Mirtazapine (Mirtazapine 30 Mg Tablet) 30 mg PO BEDTIME [facility] Last Admin: 10/02/22 20:20 Dose: 30 mg Olanzapine (Olanzapine 10 Mg Tablet) 30 mg PO BEDTIME [facility] Last Admin: 10/02/22 20:21 Dose: 30 mg Oxcarbazepine (Oxcarbazepine 150 Mg Tablet) 150 mg PO TID [facility] Last Admin: 10/03/22 14:57 Dose: 150 mg Prazosin HCl (Prazosin Hcl 1 Mg Capsule) 2 mg PO BEDTIME [facility]; Protocol Last Admin: 10/02/22 20:20 Dose: 2 mg Risperidone (Risperidone 0.5 Mg Tablet) 0.5 mg PO BID PRN PRN Reason: Anxiety Trazodone HCl (Trazodone Hcl 50 Mg Tablet) 50 mg PO BEDTIME PRN PRN Reason: Insomnia Allergies Allergies Allergy/AdvReac Type Severity Reaction Status Date / Time aspirin [ASA] Allergy Severe Anaphylaxis Verified 09/22/22 09:22 Penicillins Allergy Severe Anaphylaxis Verified 09/22/22 09:22 Sulfa (Sulfonamide Allergy Difficulty Verified 03/17/22 12:18 Antibiotics) Breathing haloperidol [From Haldol] AdvReac Severe eps, td Verified 09/22/22 09:22 aripiprazole [From Abilify] AdvReac eps,td Verified 09/20/22 15:59 Assessment & Plan Assessment & Plan (1) PTSD (post-traumatic stress disorder): Status: Acute Code(s): F43.10 - Post-traumatic stress disorder, unspecified (2) MCI (mild cognitive impairment): Status: Acute Code(s): G31.84 - Mild cognitive impairment of uncertain or unknown etiology (3) Depression, major, recurrent, severe with psychosis: Status: Acute Code(s): F33.3 - Major depressive disorder, recurrent, severe with psychotic symptoms Plan 56 yo female, hx PTSD, depression, MCI Sx. Pt has had a difficult year-loss of mother, aunt. She needed to testify at a parole board hearing to keep her sister's killer incarcerated. She has not had PTSD focused care per family and sx have become overwhelming with recent MCI sx and fainting-eval in process for seizures, tumor. 10/01 patient remains depressed; she says she is ready to have ECT. Will reach out to primary team to see if this can start on Monday since patient's ECT this past Monday was postponed due to canceled family meeting. 10/02 continue current treatment plan; primary team to further discuss ECT 10/03/22: Pt given written information in Haitian to review regarding ECT. Daughter remains with illness, fever. States she wants to come in on or Monday to review decision for ECT Plan: continue current regime monitor, allow pt to settle in collateral contact continue diagnostics aftercare planning. Informed Consent: further education needed Reason for contiued inpatient stay Substantial Risk for: rapid decompensation Time Spent With Patient Time: Total time managing care of this patient today 20minutes.
[2022-10-03 19:10] VITALS: BP 116/60; PULSE 80; RESP 16; TEMP 36.1; O2SAT 97
[2022-10-03] MEDS: Mirtazapine 30 MG TABLET PO (20:17)
[2022-10-03] MEDS: OLANZapine 10 MG TABLET 30 MG PO (20:17)
[2022-10-03] MEDS: Prazosin HCL 1 MG CAPSULE 2 MG PO (20:18)
[2022-10-04 09:00] VITALS: BP 122/79; PULSE 107; RESP 18; TEMP 36.2; O2SAT 96
[2022-10-04] MEDS: Benztropine Mesylate 1 MG TABLET PO ×3 (09:18→21:47)
[2022-10-04] MEDS: OXcarbazepine 150 MG TABLET PO ×3 (09:18→21:48)
[2022-10-04] MEDS: busPIRone HCl 10 MG TABLET PO ×2 (09:18→21:45)
--- NOTE | 2022-10-04 16:36 | HO.PSYCHPN ---
Subjective Subjective Date of Service: 10/04/22 Reason For Visit: Depression w/ Psychosis, SI Subjective Notes: Conditional Voluntary Healthcare Proxy: No Guardianship: No Medical Problems Affecting Mental Status: No Interim History: Met with pt and Dr. Huang. Pt reports her daughter does not want her to have ECT as she thinks I will become a vegatable. Pt has not reviewed educational materials on ECT however, would like daughter to make the decision about treatment. Message left with daughter to discuss. [facility] was contacted by Kevin BURROUGHS and application for services will move forward. Medication Compliance: Yes Side effects from medications: No Attending Groups: Intermittent Review of Systems Acute medical concerns: No Medical Review of Systems: unchanged Mental Status Exam Mental Status Exam Patient Appearance: Appropriate Patient Orientation: Person and Place Level of Consciousness: Alert Patient Behavior: Appropriate, Talkative, Cooperative, Passive, Anxious, Distractible, Confused, Isolative and Good Eye Contact Mood Description: Depressed Affect Description: Flat Patient Cognition Impaired: Yes Ability to Follow Directions: Good Speech Pattern: Spontaneous Speech Memory Description: Remote Impaired and Episodic Impaired Hallucinations: None Delusions: Being Controlled and Paranoid Ideation Perceptual Disturbances: Depersonalization and Derealization Thought Process: Rumination and Confusion Thought Content: positive for [place], positive for Circumstantial, positive for Goal Oriented, positive for Perseveration, positive for Poverty of Content, positive for Preoccupation, positive for Thought Blocking, positive for Slowed Thinking, positive for Disorganized and positive for Suicidal Ideation (denies) Depressive Symptoms: Increased Anxiety, Loss of Int. in Activity, Hopelessness, Isolating-Friends/Family, Unhappiness, Increased Fatigue, Low Self Esteem, Loss of Energy and Difficulty Concentrating Judgement: Fair Diagnostics Vital Signs (24Hr): Vital Signs - 24 hr 10/03/22 19:10 10/04/22 09:00 Temperature 97 F 97.2 F Pulse Rate 80 107 H Respiratory Rate 16 18 Blood Pressure 116/60 122/79 Pulse Oximetry 97 96 Oxygen Delivery Method Room Air Room Air BMI result Body Mass Index 29.5 Labs 09/30/22 10:22 09/30/22 10:58 Imaging Radiology Impressions: ITS Impressions Head CT 09/22/22 08:14 IMPRESSION: No acute intracranial process seen. Medications Medications Current Medications Acetaminophen (Acetaminophen 325 Mg Tablet) 650 mg PO Q6H PRN PRN Reason: Headache/Pain Mild Scale (1-3) Last Admin: 10/01/22 19:31 Dose: 650 mg Al Hydroxide/Mg Hydroxide (Magnesium Hydrox/Alum Hydrox 30 Ml Oral.Susp) 30 ml PO Q6H PRN PRN Reason: Heartburn/Nausea Benztropine Mesylate (Benztropine Mesylate 1 Mg Tablet) 1 mg PO TID [facility] Last Admin: 10/04/22 14:44 Dose: 1 mg Buspirone HCl (Buspirone Hcl 10 Mg Tablet) 10 mg PO BID [facility] Last Admin: 10/04/22 09:18 Dose: 10 mg Gabapentin (Gabapentin 300 Mg Capsule) 300 mg PO TID PRN PRN Reason: Anxiety Last Admin: 09/19/22 17:18 Dose: 300 mg Hydroxyzine HCl (Hydroxyzine Hcl 25 Mg Tablet) 25 mg PO Q6H PRN PRN Reason: Anxiety Last Admin: 10/03/22 15:59 Dose: 25 mg Magnesium Hydroxide (Milk Of Magnesia 30 Ml Oral.Susp) 30 ml PO DAILY PRN PRN Reason: Constipation Last Admin: 10/02/22 11:28 Dose: 30 ml Mirtazapine (Mirtazapine 30 Mg Tablet) 30 mg PO BEDTIME [facility] Last Admin: 10/03/22 20:17 Dose: 30 mg Olanzapine (Olanzapine 10 Mg Tablet) 30 mg PO BEDTIME [facility] Last Admin: 10/03/22 20:17 Dose: 30 mg Oxcarbazepine (Oxcarbazepine 150 Mg Tablet) 150 mg PO TID [facility] Last Admin: 10/04/22 14:44 Dose: 150 mg Prazosin HCl (Prazosin Hcl 1 Mg Capsule) 2 mg PO BEDTIME [facility]; Protocol Last Admin: 10/03/22 20:18 Dose: 2 mg Risperidone (Risperidone 0.5 Mg Tablet) 0.5 mg PO BID PRN PRN Reason: Anxiety Trazodone HCl (Trazodone Hcl 50 Mg Tablet) 50 mg PO BEDTIME PRN PRN Reason: Insomnia Allergies Allergies Allergy/AdvReac Type Severity Reaction Status Date / Time aspirin [ASA] Allergy Severe Anaphylaxis Verified 09/22/22 09:22 Penicillins Allergy Severe Anaphylaxis Verified 09/22/22 09:22 Sulfa (Sulfonamide Allergy Difficulty Verified 03/17/22 12:18 Antibiotics) Breathing haloperidol [From Haldol] AdvReac Severe eps, td Verified 09/22/22 09:22 aripiprazole [From Abilify] AdvReac eps,td Verified 09/20/22 15:59 Assessment & Plan Assessment & Plan (1) PTSD (post-traumatic stress disorder): Status: Acute Code(s): F43.10 - Post-traumatic stress disorder, unspecified (2) MCI (mild cognitive impairment): Status: Acute Code(s): G31.84 - Mild cognitive impairment of uncertain or unknown etiology (3) Depression, major, recurrent, severe with psychosis: Status: Acute Code(s): F33.3 - Major depressive disorder, recurrent, severe with psychotic symptoms Plan 56 yo female, hx PTSD, depression, MCI Sx. Pt has had a difficult year-loss of mother, aunt. She needed to testify at a parole board hearing to keep her sister's killer incarcerated. She has not had PTSD focused care per family and sx have become overwhelming with recent MCI sx and fainting-eval in process for seizures, tumor. 10/01 patient remains depressed; she says she is ready to have ECT. Will reach out to primary team to see if this can start on Monday since patient's ECT this past Monday was postponed due to canceled family meeting. 10/02 continue current treatment plan; primary team to further discuss ECT 10/03/22: Pt given written information in Polish to review regarding ECT. Daughter remains with illness, fever. States she wants to come in on or Monday to review decision for ECT 10/04/22: Pt is opposed to ECT at this time as she reports her daughter is opposed. She told me I would be a vegetable if I had the treatment. Plan: continue current regime monitor, allow pt to settle in collateral contact continue diagnostics aftercare planning. Patient educated on: ECT and therapeutic strategies Informed Consent: further education needed Reason for contiued inpatient stay Substantial Risk for: inability to function and rapid decompensation Time Spent With Patient Time: Total time managing care of this patient today 20 minutes.
[2022-10-04 21:40] VITALS: BP 118/68; PULSE 75; TEMP 35.9; O2SAT 98
[2022-10-04] MEDS: Mirtazapine 30 MG TABLET PO (21:47)
[2022-10-04] MEDS: Prazosin HCL 1 MG CAPSULE 2 MG PO (21:47)
[2022-10-04] MEDS: OLANZapine 10 MG TABLET 30 MG PO (21:48)
--- NOTE | 2022-10-04 23:46 | PC.RT ---
Pt seen for NOC home CPAP plugged into red outlet. sitter in room. Pt roxann well
[2022-10-05] MEDS: Benztropine Mesylate 1 MG TABLET PO ×3 (08:56→19:18)
[2022-10-05] MEDS: OXcarbazepine 150 MG TABLET PO ×3 (08:56→19:18)
[2022-10-05] MEDS: busPIRone HCl 10 MG TABLET PO ×2 (08:56→19:19)
[2022-10-05] MEDS: Escitalopram Oxalate 5 MG TABLET PO (08:57)
[2022-10-05 09:20] VITALS: BP 127/66; PULSE 87; RESP 16; TEMP 36; O2SAT 97
--- NOTE | 2022-10-05 16:58 | HO.PSYCHPN ---
Subjective Subjective Date of Service: 10/05/22 Reason For Visit: Depression w/ Psychosis, SI Subjective Notes: Conditional Voluntary Healthcare Proxy: No Guardianship: No Medical Problems Affecting Mental Status: No Interim History: I read the papers I will have it if you think it will help me to get better. (referring to ECT) Discussed with pt that we can trial other medications to work with depressive sx and that we can continue to discuss ECT with her and family, however, it would be a sound idea to have all in agreement prior to proceeding. Pt agrees, states she wants her children to be at ease, but she wants improved health to be able to enjoy them. Agrees to Lexapro trial. Medication Compliance: Yes Side effects from medications: No Attending Groups: Intermittent Review of Systems Acute medical concerns: No Medical Review of Systems: unchanged Mental Status Exam Mental Status Exam Patient Appearance: Appropriate Patient Orientation: Person and Place Level of Consciousness: Alert Patient Behavior: Appropriate, Talkative, Cooperative, Passive, Anxious, Distractible, Confused, Isolative and Good Eye Contact Mood Description: Depressed Affect Description: Flat Patient Cognition Impaired: Yes Ability to Follow Directions: Good Speech Pattern: Spontaneous Speech Memory Description: Remote Impaired and Episodic Impaired Hallucinations: None Delusions: Being Controlled and Paranoid Ideation Perceptual Disturbances: Depersonalization and Derealization Thought Process: Rumination and Confusion Thought Content: positive for [place], positive for Circumstantial, positive for Goal Oriented, positive for Perseveration, positive for Poverty of Content, positive for Preoccupation, positive for Thought Blocking, positive for Slowed Thinking, positive for Disorganized and positive for Suicidal Ideation (denies) Depressive Symptoms: Increased Anxiety, Loss of Int. in Activity, Hopelessness, Isolating-Friends/Family, Unhappiness, Increased Fatigue, Low Self Esteem, Loss of Energy and Difficulty Concentrating Judgement: Fair Diagnostics Vital Signs (24Hr): Vital Signs - 24 hr 10/04/22 21:40 10/05/22 09:20 Temperature 96.6 F L 96.8 F Pulse Rate 75 87 Respiratory Rate 16 Blood Pressure 118/68 127/66 Pulse Oximetry 98 97 Oxygen Delivery Method Room Air Room Air BMI result Body Mass Index 29.5 Labs 09/30/22 10:22 09/30/22 10:58 Imaging Radiology Impressions: ITS Impressions Head CT 09/22/22 08:14 IMPRESSION: No acute intracranial process seen. Medications Medications Current Medications Acetaminophen (Acetaminophen 325 Mg Tablet) 650 mg PO Q6H PRN PRN Reason: Headache/Pain Mild Scale (1-3) Last Admin: 10/01/22 19:31 Dose: 650 mg Al Hydroxide/Mg Hydroxide (Magnesium Hydrox/Alum Hydrox 30 Ml Oral.Susp) 30 ml PO Q6H PRN PRN Reason: Heartburn/Nausea Benztropine Mesylate (Benztropine Mesylate 1 Mg Tablet) 1 mg PO TID [facility] Last Admin: 10/05/22 14:31 Dose: 1 mg Buspirone HCl (Buspirone Hcl 10 Mg Tablet) 10 mg PO BID [facility] Last Admin: 10/05/22 08:56 Dose: 10 mg Escitalopram Oxalate (Escitalopram Oxalate 5 Mg Tablet) 5 mg PO DAILY [facility] Last Admin: 10/05/22 08:57 Dose: 5 mg Gabapentin (Gabapentin 300 Mg Capsule) 300 mg PO TID PRN PRN Reason: Anxiety Last Admin: 09/19/22 17:18 Dose: 300 mg Hydroxyzine HCl (Hydroxyzine Hcl 25 Mg Tablet) 25 mg PO Q6H PRN PRN Reason: Anxiety Last Admin: 10/03/22 15:59 Dose: 25 mg Magnesium Hydroxide (Milk Of Magnesia 30 Ml Oral.Susp) 30 ml PO DAILY PRN PRN Reason: Constipation Last Admin: 10/02/22 11:28 Dose: 30 ml Mirtazapine (Mirtazapine 30 Mg Tablet) 30 mg PO BEDTIME [facility] Last Admin: 10/04/22 21:47 Dose: 30 mg Olanzapine (Olanzapine 10 Mg Tablet) 30 mg PO BEDTIME [facility] Last Admin: 10/04/22 21:48 Dose: 30 mg Oxcarbazepine (Oxcarbazepine 150 Mg Tablet) 150 mg PO TID [facility] Last Admin: 10/05/22 14:31 Dose: 150 mg Prazosin HCl (Prazosin Hcl 1 Mg Capsule) 2 mg PO BEDTIME [facility]; Protocol Last Admin: 10/04/22 21:47 Dose: 2 mg Risperidone (Risperidone 0.5 Mg Tablet) 0.5 mg PO BID PRN PRN Reason: Anxiety Trazodone HCl (Trazodone Hcl 50 Mg Tablet) 50 mg PO BEDTIME PRN PRN Reason: Insomnia Allergies Allergies Allergy/AdvReac Type Severity Reaction Status Date / Time aspirin [ASA] Allergy Severe Anaphylaxis Verified 09/22/22 09:22 Penicillins Allergy Severe Anaphylaxis Verified 09/22/22 09:22 Sulfa (Sulfonamide Allergy Difficulty Verified 03/17/22 12:18 Antibiotics) Breathing haloperidol [From Haldol] AdvReac Severe eps, td Verified 09/22/22 09:22 aripiprazole [From Abilify] AdvReac eps,td Verified 09/20/22 15:59 Assessment & Plan Assessment & Plan (1) PTSD (post-traumatic stress disorder): Status: Acute Code(s): F43.10 - Post-traumatic stress disorder, unspecified (2) MCI (mild cognitive impairment): Status: Acute Code(s): G31.84 - Mild cognitive impairment of uncertain or unknown etiology (3) Depression, major, recurrent, severe with psychosis: Status: Acute Code(s): F33.3 - Major depressive disorder, recurrent, severe with psychotic symptoms Plan 56 yo female, hx PTSD, depression, MCI Sx. Pt has had a difficult year-loss of mother, aunt. She needed to testify at a parole board hearing to keep her sister's killer incarcerated. She has not had PTSD focused care per family and sx have become overwhelming with recent MCI sx and fainting-eval in process for seizures, tumor. 10/01 patient remains depressed; she says she is ready to have ECT. Will reach out to primary team to see if this can start on Monday since patient's ECT this past Monday was postponed due to canceled family meeting. 10/02 continue current treatment plan; primary team to further discuss ECT 10/03/22: Pt given written information in [place] to review regarding ECT. Daughter remains with illness, fever. States she wants to come in on or Monday to review decision for ECT 10/04/22: Pt is opposed to ECT at this time as she reports her daughter is opposed. She told me I would be a vegetable if I had the treatment. 10/05/22: Lexapro 5 mg daily Plan: continue current regime monitor, allow pt to settle in collateral contact continue diagnostics aftercare planning. Patient educated on: medication risk/benefits, ECT and therapeutic strategies Informed Consent: further education needed Reason for contiued inpatient stay Substantial Risk for: inability to function and rapid decompensation Time Spent With Patient Time: Total time managing care of this patient today 20 minutes.
[2022-10-05 18:00] VITALS: BP 104/69; PULSE 81; RESP 16; TEMP 36.6; O2SAT 98
[2022-10-05] MEDS: OLANZapine 10 MG TABLET 30 MG PO (19:18)
[2022-10-05] MEDS: Prazosin HCL 1 MG CAPSULE 2 MG PO (19:18)
[2022-10-05] MEDS: Mirtazapine 30 MG TABLET PO (19:19)
[2022-10-06] MEDS: Escitalopram Oxalate 5 MG TABLET PO (09:14)
[2022-10-06] MEDS: Benztropine Mesylate 1 MG TABLET PO ×3 (09:14→19:25)
[2022-10-06] MEDS: busPIRone HCl 10 MG TABLET PO ×2 (09:14→19:25)
[2022-10-06] MEDS: OXcarbazepine 150 MG TABLET PO ×3 (09:15→19:25)
[2022-10-06 09:17] VITALS: BP 131/79; PULSE 102; RESP 18; TEMP 36.2; O2SAT 97
[2022-10-06 10:35] VITALS: BMI 28.7
[2022-10-06] MEDS: bisacodyL 5 MG TABLET.DR 10 MG PO (15:06)
[2022-10-06 16:13] VITALS: BP 111/75; PULSE 63; RESP 16; TEMP 35.9; O2SAT 96
--- NOTE | 2022-10-06 17:07 | HO.PSYCHPN ---
Subjective Subjective Date of Service: 10/06/22 Reason For Visit: Depression w/ Psychosis, SI Subjective Notes: Conditional Voluntary Healthcare Proxy: No Guardianship: No Medical Problems Affecting Mental Status: No Interim History: Pt resting in bed, reports constipation. Tolerating Lexapro thus far. Team reports poor sleep last evening. Increased visability on the unit earlier in the day. Today, regarding discharge, wanting to go, but not feeling ready to go, undecided. Message received from daughter at the end of the day for an update. We will request family meeting to discuss discharge, meds, ?ECT if they are willing. Medication Compliance: Yes Side effects from medications: No Attending Groups: Intermittent Review of Systems Acute medical concerns: No Medical Review of Systems: unchanged Mental Status Exam Mental Status Exam Patient Appearance: Appropriate Patient Orientation: Person and Place Level of Consciousness: Alert Patient Behavior: Appropriate, Talkative, Cooperative, Passive, Anxious, Distractible, Confused, Isolative and Good Eye Contact Mood Description: Depressed Affect Description: Flat Patient Cognition Impaired: Yes Ability to Follow Directions: Good Speech Pattern: Spontaneous Speech Memory Description: Remote Impaired and Episodic Impaired Hallucinations: None Delusions: Being Controlled and Paranoid Ideation Perceptual Disturbances: Depersonalization and Derealization Thought Process: Rumination and Confusion Thought Content: positive for [place], positive for Circumstantial, positive for Goal Oriented, positive for Perseveration, positive for Poverty of Content, positive for Preoccupation, positive for Thought Blocking, positive for Slowed Thinking, positive for Disorganized and positive for Suicidal Ideation (denies) Depressive Symptoms: Increased Anxiety, Loss of Int. in Activity, Hopelessness, Isolating-Friends/Family, Unhappiness, Increased Fatigue, Low Self Esteem, Loss of Energy and Difficulty Concentrating Judgement: Fair Diagnostics Vital Signs (24Hr): Vital Signs - 24 hr 10/05/22 18:00 10/06/22 09:17 10/06/22 16:13 Temperature 97.8 F 97.1 F 96.7 F L Pulse Rate 81 102 H 63 Respiratory Rate 16 18 16 Blood Pressure 104/69 131/79 111/75 Pulse Oximetry 98 97 96 Oxygen Delivery Method Room Air Room Air Room Air BMI result Body Mass Index 28.7 Labs 09/30/22 10:22 09/30/22 10:58 Imaging Radiology Impressions: [facility] Impressions Head CT 09/22/22 08:14 IMPRESSION: No acute intracranial process seen. Medications Medications Current Medications Acetaminophen (Acetaminophen 325 Mg Tablet) 650 mg PO Q6H PRN PRN Reason: Headache/Pain Mild Scale (1-3) Last Admin: 10/01/22 19:31 Dose: 650 mg Al Hydroxide/Mg Hydroxide (Magnesium Hydrox/Alum Hydrox 30 Ml Oral.Susp) 30 ml PO Q6H PRN PRN Reason: Heartburn/Nausea Benztropine Mesylate (Benztropine Mesylate 1 Mg Tablet) 1 mg PO TID [facility] Last Admin: 10/06/22 14:13 Dose: 1 mg Bisacodyl (Bisacodyl 5 Mg Tablet.Dr) 10 mg PO DAILY PRN PRN Reason: Constipation Last Admin: 10/06/22 15:06 Dose: 10 mg Buspirone HCl (Buspirone Hcl 10 Mg Tablet) 10 mg PO BID [facility] Last Admin: 10/06/22 09:14 Dose: 10 mg Escitalopram Oxalate (Escitalopram Oxalate 5 Mg Tablet) 5 mg PO DAILY [facility] Last Admin: 10/06/22 09:14 Dose: 5 mg Gabapentin (Gabapentin 300 Mg Capsule) 300 mg PO TID PRN PRN Reason: Anxiety Last Admin: 09/19/22 17:18 Dose: 300 mg Hydroxyzine HCl (Hydroxyzine Hcl 25 Mg Tablet) 25 mg PO Q6H PRN PRN Reason: Anxiety Last Admin: 10/03/22 15:59 Dose: 25 mg Magnesium Hydroxide (Milk Of Magnesia 30 Ml Oral.Susp) 30 ml PO DAILY PRN PRN Reason: Constipation Last Admin: 10/02/22 11:28 Dose: 30 ml Mirtazapine (Mirtazapine 30 Mg Tablet) 30 mg PO BEDTIME [facility] Last Admin: 10/05/22 19:19 Dose: 30 mg Olanzapine (Olanzapine 10 Mg Tablet) 30 mg PO BEDTIME [facility] Last Admin: 10/05/22 19:18 Dose: 30 mg Oxcarbazepine (Oxcarbazepine 150 Mg Tablet) 150 mg PO TID [facility] Last Admin: 10/06/22 14:13 Dose: 150 mg Prazosin HCl (Prazosin Hcl 1 Mg Capsule) 2 mg PO BEDTIME [facility]; Protocol Last Admin: 10/05/22 19:18 Dose: 2 mg Risperidone (Risperidone 0.5 Mg Tablet) 0.5 mg PO BID PRN PRN Reason: Anxiety Trazodone HCl (Trazodone Hcl 50 Mg Tablet) 50 mg PO BEDTIME PRN PRN Reason: Insomnia Allergies Allergies Allergy/AdvReac Type Severity Reaction Status Date / Time aspirin [ASA] Allergy Severe Anaphylaxis Verified 09/22/22 09:22 Penicillins Allergy Severe Anaphylaxis Verified 09/22/22 09:22 Sulfa (Sulfonamide Allergy Difficulty Verified 03/17/22 12:18 Antibiotics) Breathing haloperidol [From Haldol] AdvReac Severe eps, td Verified 09/22/22 09:22 aripiprazole [From Abilify] AdvReac eps,td Verified 09/20/22 15:59 Assessment & Plan Assessment & Plan (1) PTSD (post-traumatic stress disorder): Status: Acute Code(s): F43.10 - Post-traumatic stress disorder, unspecified (2) MCI (mild cognitive impairment): Status: Acute Code(s): G31.84 - Mild cognitive impairment of uncertain or unknown etiology (3) Depression, major, recurrent, severe with psychosis: Status: Acute Code(s): F33.3 - Major depressive disorder, recurrent, severe with psychotic symptoms Plan 56 yo female, hx PTSD, depression, MCI Sx. Pt has had a difficult year-loss of mother, aunt. She needed to testify at a parole board hearing to keep her sister's killer incarcerated. She has not had PTSD focused care per family and sx have become overwhelming with recent MCI sx and fainting-eval in process for seizures, tumor. 10/01 patient remains depressed; she says she is ready to have ECT. Will reach out to primary team to see if this can start on Monday since patient's ECT this past Monday was postponed due to canceled family meeting. 10/02 continue current treatment plan; primary team to further discuss ECT 10/03/22: Pt given written information in [place] to review regarding ECT. Daughter remains with illness, fever. States she wants to come in on or Monday to review decision for ECT 10/04/22: Pt is opposed to ECT at this time as she reports her daughter is opposed. She told me I would be a vegetable if I had the treatment. 10/05/22: Lexapro 5 mg daily 10/06/22: Hopefully family will agree to a meeting to discuss treatment options. Continue Lexapro Dulcolax prn. Plan: continue current regime monitor, allow pt to settle in collateral contact continue diagnostics aftercare planning. Informed Consent: further education needed Reason for contiued inpatient stay Substantial Risk for: rapid decompensation Time Spent With Patient Time: Total time managing care of this patient today 20 minutes.
[2022-10-06] MEDS: OLANZapine 10 MG TABLET 30 MG PO (19:24)
[2022-10-06] MEDS: Prazosin HCL 1 MG CAPSULE 2 MG PO (19:25)
[2022-10-06] MEDS: Mirtazapine 30 MG TABLET PO (19:25)
[2022-10-07] MEDS: busPIRone HCl 10 MG TABLET PO ×2 (08:28→20:15)
[2022-10-07] MEDS: OXcarbazepine 150 MG TABLET PO ×3 (08:28→20:15)
[2022-10-07] MEDS: Escitalopram Oxalate 5 MG TABLET PO (08:28)
[2022-10-07] MEDS: bisacodyL 5 MG TABLET.DR 10 MG PO (08:29)
[2022-10-07] MEDS: Benztropine Mesylate 1 MG TABLET PO ×3 (08:29→20:15)
[2022-10-07 08:49] VITALS: BP 119/81; PULSE 110; RESP 16; TEMP 35.7; O2SAT 97
--- NOTE | 2022-10-07 09:04 | HO.PSYCHPN ---
Subjective Subjective Date of Service: 10/07/22 Reason For Visit: Depression w/ Psychosis, SI Subjective Notes: Conditional Voluntary Healthcare Proxy: No Guardianship: No Medical Problems Affecting Mental Status: No Interim History: Pt awake but in bed when we met. She is pleased regarding family meeting on 10/11 11am. She reports constipation is resolved. Discussed if she felt overmedicated. Team report intermittent speech slurring. Discussed decreasing Olanzapine and she agreed, but reports she does not feel as if there is too much medicine in her system. Moments of laughter, shared a memory of a good time with her children and laughed, reflected on how loved she feels by them and how she wants to feel improved so she may enjoy them and her life once again. Medication Compliance: Yes Side effects from medications: Yes (? sedation) Attending Groups: Intermittent Review of Systems Acute medical concerns: No Medical Review of Systems: unchanged Mental Status Exam Mental Status Exam Patient Appearance: Appropriate Patient Orientation: Person and Place Level of Consciousness: Alert Patient Behavior: Appropriate, Talkative, Cooperative, Passive, Anxious, Distractible, Confused, Isolative and Good Eye Contact Mood Description: Depressed Affect Description: Flat Patient Cognition Impaired: Yes Ability to Follow Directions: Good Speech Pattern: Spontaneous Speech Memory Description: Remote Impaired and Episodic Impaired Hallucinations: None Delusions: Being Controlled and Paranoid Ideation Perceptual Disturbances: Depersonalization and Derealization Thought Process: Rumination and Confusion Thought Content: positive for [place], positive for Circumstantial, positive for Goal Oriented, positive for Perseveration, positive for Poverty of Content, positive for Preoccupation, positive for Thought Blocking, positive for Slowed Thinking, positive for Disorganized and positive for Suicidal Ideation (denies) Depressive Symptoms: Increased Anxiety, Loss of Int. in Activity, Hopelessness, Isolating-Friends/Family, Unhappiness, Increased Fatigue, Low Self Esteem, Loss of Energy and Difficulty Concentrating Judgement: Fair Diagnostics Vital Signs (24Hr): Vital Signs - 24 hr 10/06/22 09:17 10/06/22 16:13 10/07/22 08:49 Temperature 97.1 F 96.7 F L 96.3 F L Pulse Rate 102 H 63 110 H Respiratory Rate 18 16 16 Blood Pressure 131/79 111/75 119/81 Pulse Oximetry 97 96 97 Oxygen Delivery Method Room Air Room Air Room Air BMI result Body Mass Index 28.7 Labs 09/30/22 10:22 09/30/22 10:58 Imaging Radiology Impressions: ITS Impressions Head CT 09/22/22 08:14 IMPRESSION: No acute intracranial process seen. Medications Medications Current Medications Acetaminophen (Acetaminophen 325 Mg Tablet) 650 mg PO Q6H PRN PRN Reason: Headache/Pain Mild Scale (1-3) Last Admin: 10/01/22 19:31 Dose: 650 mg Al Hydroxide/Mg Hydroxide (Magnesium Hydrox/Alum Hydrox 30 Ml Oral.Susp) 30 ml PO Q6H PRN PRN Reason: Heartburn/Nausea Benztropine Mesylate (Benztropine Mesylate 1 Mg Tablet) 1 mg PO TID [facility] Last Admin: 10/07/22 08:29 Dose: 1 mg Bisacodyl (Bisacodyl 5 Mg Tablet.Dr) 10 mg PO DAILY PRN PRN Reason: Constipation Last Admin: 10/07/22 08:29 Dose: 10 mg Buspirone HCl (Buspirone Hcl 10 Mg Tablet) 10 mg PO BID [facility] Last Admin: 10/07/22 08:28 Dose: 10 mg Escitalopram Oxalate (Escitalopram Oxalate 5 Mg Tablet) 5 mg PO DAILY [facility] Last Admin: 10/07/22 08:28 Dose: 5 mg Gabapentin (Gabapentin 300 Mg Capsule) 300 mg PO TID PRN PRN Reason: Anxiety Last Admin: 09/19/22 17:18 Dose: 300 mg Hydroxyzine HCl (Hydroxyzine Hcl 25 Mg Tablet) 25 mg PO Q6H PRN PRN Reason: Anxiety Last Admin: 10/03/22 15:59 Dose: 25 mg Magnesium Hydroxide (Milk Of Magnesia 30 Ml Oral.Susp) 30 ml PO DAILY PRN PRN Reason: Constipation Last Admin: 10/02/22 11:28 Dose: 30 ml Mirtazapine (Mirtazapine 30 Mg Tablet) 30 mg PO BEDTIME [facility] Last Admin: 10/06/22 19:25 Dose: 30 mg Olanzapine (Olanzapine 10 Mg Tablet) 30 mg PO BEDTIME [facility] Last Admin: 10/06/22 19:24 Dose: 30 mg Oxcarbazepine (Oxcarbazepine 150 Mg Tablet) 150 mg PO TID [facility] Last Admin: 10/07/22 08:28 Dose: 150 mg Prazosin HCl (Prazosin Hcl 1 Mg Capsule) 2 mg PO BEDTIME [facility]; Protocol Last Admin: 10/06/22 19:25 Dose: 2 mg Risperidone (Risperidone 0.5 Mg Tablet) 0.5 mg PO BID PRN PRN Reason: Anxiety Trazodone HCl (Trazodone Hcl 50 Mg Tablet) 50 mg PO BEDTIME PRN PRN Reason: Insomnia Allergies Allergies Allergy/AdvReac Type Severity Reaction Status Date / Time aspirin [ASA] Allergy Severe Anaphylaxis Verified 09/22/22 09:22 Penicillins Allergy Severe Anaphylaxis Verified 09/22/22 09:22 Sulfa (Sulfonamide Allergy Difficulty Verified 03/17/22 12:18 Antibiotics) Breathing haloperidol [From Haldol] AdvReac Severe eps, td Verified 09/22/22 09:22 aripiprazole [From Abilify] AdvReac eps,td Verified 09/20/22 15:59 Assessment & Plan Assessment & Plan (1) PTSD (post-traumatic stress disorder): Status: Acute Code(s): F43.10 - Post-traumatic stress disorder, unspecified (2) MCI (mild cognitive impairment): Status: Acute Code(s): G31.84 - Mild cognitive impairment of uncertain or unknown etiology (3) Depression, major, recurrent, severe with psychosis: Status: Acute Code(s): F33.3 - Major depressive disorder, recurrent, severe with psychotic symptoms Plan 56 yo female, hx PTSD, depression, MCI Sx. Pt has had a difficult year-loss of mother, aunt. She needed to testify at a parole board hearing to keep her sister's killer incarcerated. She has not had PTSD focused care per family and sx have become overwhelming with recent MCI sx and fainting-eval in process for seizures, tumor. 10/01 patient remains depressed; she says she is ready to have ECT. Will reach out to primary team to see if this can start on Monday since patient's ECT this past Monday was postponed due to canceled family meeting. 10/02 continue current treatment plan; primary team to further discuss ECT 10/03/22: Pt given written information in [place] to review regarding ECT. Daughter remains with illness, fever. States she wants to come in on or Monday to review decision for ECT 10/04/22: Pt is opposed to ECT at this time as she reports her daughter is opposed. She told me I would be a vegetable if I had the treatment. 10/05/22: Lexapro 5 mg daily 10/06/22: Hopefully family will agree to a meeting to discuss treatment options. Continue Lexapro Dulcolax prn. 10/07/22: Family meeting 10/11/22 11 am Decrease Olanzapine to 20 mg hs Discontinue Risperdal Decrease Benztropine to 1 mg bid Plan: continue current regime monitor, allow pt to settle in collateral contact continue diagnostics aftercare planning. Patient educated on: therapeutic strategies Informed Consent: further education needed Reason for contiued inpatient stay Substantial Risk for: rapid decompensation Time Spent With Patient Time: Total time managing care of this patient today 20 minutes.
[2022-10-07 18:00] VITALS: BP 108/59; PULSE 77; TEMP 36.2; O2SAT 97
[2022-10-07] MEDS: Mirtazapine 30 MG TABLET PO (20:14)
[2022-10-07] MEDS: OLANZapine 10 MG TABLET 20 MG PO (20:15)
[2022-10-07] MEDS: Prazosin HCL 1 MG CAPSULE 2 MG PO (20:15)
[2022-10-08] MEDS: busPIRone HCl 10 MG TABLET PO ×2 (08:05→20:50)
[2022-10-08] MEDS: Escitalopram Oxalate 5 MG TABLET PO (08:05)
[2022-10-08] MEDS: Benztropine Mesylate 1 MG TABLET PO ×2 (08:05→20:50)
[2022-10-08] MEDS: OXcarbazepine 150 MG TABLET PO ×3 (08:05→20:50)
[2022-10-08 08:45] VITALS: BP 140/76; PULSE 81; RESP 16; TEMP 35.7; O2SAT 97
--- NOTE | 2022-10-08 09:57 | HO.PSYCHPN ---
Subjective Subjective Date of Service: 10/08/22 Reason For Visit: Depression w/ Psychosis, SI Subjective Notes: Conditional Voluntary Healthcare Proxy: No Guardianship: No Medical Problems Affecting Mental Status: No Interim History: Patient was seen and discussed in rounds today. Records and plans reviewed. She has been mostly withdrawn, quiet and in her room. Eating and sleeping adequately. She continues to have depression and anxiety. She denies any side effects. Current medications were reviewed. She is concerned about her discharge planning. ECT is being considered but her daughter is not on board with this yet. There is family meeting scheduled for 10/11. No changes were made today Review of Systems Review of Systems Yes all other systems are reviewed and are negative Constitutional: Reports as per HPI Mental Status Exam Mental Status Exam Patient Appearance: Appropriate Patient Orientation: Person and Place Level of Consciousness: Alert Patient Behavior: Appropriate, Talkative, Cooperative, Passive, Anxious, Distractible, Confused, Isolative and Good Eye Contact Mood Description: Depressed Affect Description: Flat Patient Cognition Impaired: Yes Ability to Follow Directions: Good Speech Pattern: Spontaneous Speech Memory Description: Remote Impaired and Episodic Impaired Hallucinations: None Delusions: Being Controlled and Paranoid Ideation Perceptual Disturbances: Depersonalization and Derealization Thought Process: Rumination and Confusion Thought Content: positive for [place], positive for Circumstantial, positive for Goal Oriented, positive for Perseveration, positive for Poverty of Content, positive for Preoccupation, positive for Thought Blocking, positive for Slowed Thinking, positive for Disorganized and positive for Suicidal Ideation (denies) Depressive Symptoms: Increased Anxiety, Loss of Int. in Activity, Hopelessness, Isolating-Friends/Family, Unhappiness, Increased Fatigue, Low Self Esteem, Loss of Energy and Difficulty Concentrating Judgement: Fair Diagnostics Vital Signs (24Hr): Vital Signs - 24 hr 10/07/22 18:00 10/08/22 08:45 Temperature 97.1 F 96.2 F L Pulse Rate 77 81 Respiratory Rate 16 Blood Pressure 108/59 L 140/76 H Pulse Oximetry 97 97 Oxygen Delivery Method Room Air Room Air BMI result Body Mass Index 28.7 Labs 09/30/22 10:22 09/30/22 10:58 Imaging Radiology Impressions: ITS Impressions Head CT 09/22/22 08:14 IMPRESSION: No acute intracranial process seen. Medications Medications Current Medications Acetaminophen (Acetaminophen 325 Mg Tablet) 650 mg PO Q6H PRN PRN Reason: Headache/Pain Mild Scale (1-3) Last Admin: 10/01/22 19:31 Dose: 650 mg Al Hydroxide/Mg Hydroxide (Magnesium Hydrox/Alum Hydrox 30 Ml Oral.Susp) 30 ml PO Q6H PRN PRN Reason: Heartburn/Nausea Benztropine Mesylate (Benztropine Mesylate 1 Mg Tablet) 1 mg PO BID [facility] Last Admin: 10/08/22 08:05 Dose: 1 mg Bisacodyl (Bisacodyl 5 Mg Tablet.Dr) 10 mg PO DAILY PRN PRN Reason: Constipation Last Admin: 10/07/22 08:29 Dose: 10 mg Buspirone HCl (Buspirone Hcl 10 Mg Tablet) 10 mg PO BID [facility] Last Admin: 10/08/22 08:05 Dose: 10 mg Escitalopram Oxalate (Escitalopram Oxalate 5 Mg Tablet) 5 mg PO DAILY [facility] Last Admin: 10/08/22 08:05 Dose: 5 mg Gabapentin (Gabapentin 300 Mg Capsule) 300 mg PO TID PRN PRN Reason: Anxiety Last Admin: 09/19/22 17:18 Dose: 300 mg Hydroxyzine HCl (Hydroxyzine Hcl 25 Mg Tablet) 25 mg PO Q6H PRN PRN Reason: Anxiety Last Admin: 10/03/22 15:59 Dose: 25 mg Loperamide HCl (Loperamide Hcl 2 Mg Capsule) 4 mg PO Q6H PRN PRN Reason: Loose Stool Magnesium Hydroxide (Milk Of Magnesia 30 Ml Oral.Susp) 30 ml PO DAILY PRN PRN Reason: Constipation Last Admin: 10/02/22 11:28 Dose: 30 ml Mirtazapine (Mirtazapine 30 Mg Tablet) 30 mg PO BEDTIME [facility] Last Admin: 10/07/22 20:14 Dose: 30 mg Olanzapine (Olanzapine 10 Mg Tablet) 20 mg PO BEDTIME [facility] Last Admin: 10/07/22 20:15 Dose: 20 mg Oxcarbazepine (Oxcarbazepine 150 Mg Tablet) 150 mg PO TID [facility] Last Admin: 10/08/22 08:05 Dose: 150 mg Prazosin HCl (Prazosin Hcl 1 Mg Capsule) 2 mg PO BEDTIME [facility]; Protocol Last Admin: 10/07/22 20:15 Dose: 2 mg Trazodone HCl (Trazodone Hcl 50 Mg Tablet) 50 mg PO BEDTIME PRN PRN Reason: Insomnia Allergies Allergies Allergy/AdvReac Type Severity Reaction Status Date / Time aspirin [ASA] Allergy Severe Anaphylaxis Verified 09/22/22 09:22 Penicillins Allergy Severe Anaphylaxis Verified 09/22/22 09:22 Sulfa (Sulfonamide Allergy Difficulty Verified 03/17/22 12:18 Antibiotics) Breathing haloperidol [From Haldol] AdvReac Severe eps, td Verified 09/22/22 09:22 aripiprazole [From Abilify] AdvReac eps,td Verified 09/20/22 15:59 Assessment & Plan Assessment & Plan (1) PTSD (post-traumatic stress disorder): Status: Acute Code(s): F43.10 - Post-traumatic stress disorder, unspecified (2) MCI (mild cognitive impairment): Status: Acute Code(s): G31.84 - Mild cognitive impairment of uncertain or unknown etiology (3) Depression, major, recurrent, severe with psychosis: Status: Acute Code(s): F33.3 - Major depressive disorder, recurrent, severe with psychotic symptoms Plan 56 yo female, hx PTSD, depression, MCI Sx. Pt has had a difficult year-loss of mother, aunt. She needed to testify at a parole board hearing to keep her sister's killer incarcerated. She has not had PTSD focused care per family and sx have become overwhelming with recent MCI sx and fainting-eval in process for seizures, tumor. 10/01 patient remains depressed; she says she is ready to have ECT. Will reach out to primary team to see if this can start on Monday since patient's ECT this past Monday was postponed due to canceled family meeting. 10/02 continue current treatment plan; primary team to further discuss ECT 10/03/22: Pt given written information in [place] to review regarding ECT. Daughter remains with illness, fever. States she wants to come in on or Monday to review decision for ECT 10/04/22: Pt is opposed to ECT at this time as she reports her daughter is opposed. She told me I would be a vegetable if I had the treatment. 10/05/22: Lexapro 5 mg daily 10/06/22: Hopefully family will agree to a meeting to discuss treatment options. Continue Lexapro Dulcolax prn. 2/17/23: Family meeting 10/11/22 11 am Decrease Olanzapine to 20 mg hs Discontinue Risperdal Decrease Benztropine to 1 mg bid 10/08/2022: Continue current regimen and plans. Plan: continue current regime monitor, allow pt to settle in collateral contact continue diagnostics aftercare planning. Reason for contiued inpatient stay Substantial Risk for: med/psych decompensation Time Spent With Patient Time: Total time managing care of this patient today ____ minutes.
[2022-10-08 20:48] VITALS: BP 110/63; PULSE 69; RESP 14; TEMP 36.1; O2SAT 99
[2022-10-08] MEDS: Prazosin HCL 1 MG CAPSULE 2 MG PO (20:50)
[2022-10-08] MEDS: OLANZapine 10 MG TABLET 20 MG PO (20:50)
[2022-10-08] MEDS: Mirtazapine 30 MG TABLET PO (20:50)
[2022-10-08] MEDS: Acetaminophen 325 MG TABLET 650 MG PO (20:58)
[2022-10-09] MEDS: busPIRone HCl 10 MG TABLET PO ×2 (08:00→20:59)
[2022-10-09] MEDS: OXcarbazepine 150 MG TABLET PO ×3 (08:00→20:59)
[2022-10-09] MEDS: Benztropine Mesylate 1 MG TABLET PO ×2 (08:00→20:59)
[2022-10-09] MEDS: Escitalopram Oxalate 5 MG TABLET PO (08:00)
--- NOTE | 2022-10-09 08:15 | HO.PSYCHPN ---
Subjective Subjective Date of Service: 10/08/22 Reason For Visit: Depression w/ Psychosis, SI Subjective Notes: Conditional Voluntary Healthcare Proxy: No Guardianship: No Medical Problems Affecting Mental Status: No Interim History: Patient was seen and discussed in rounds today. Records and plans reviewed. She continues to be mostly isolative but visible at times. She has some insight into the problems at hand. No SI. Some pacing to help with anxiety. Eating adequately. Continues to be isolative. The CT is being considered. No changes were made today Review of Systems Review of Systems Yes all other systems are reviewed and are negative Constitutional: Reports as per HPI Diagnostics Vital Signs (24Hr): Vital Signs - 24 hr 10/08/22 08:45 10/08/22 20:48 Temperature 96.2 F L 97 F Pulse Rate 81 69 Respiratory Rate 16 14 Blood Pressure 140/76 H 110/63 Pulse Oximetry 97 99 Oxygen Delivery Method Room Air Room Air BMI result Body Mass Index 28.7 Labs 09/30/22 10:22 09/30/22 10:58 Imaging Radiology Impressions: ITS Impressions Head CT 09/22/22 08:14 IMPRESSION: No acute intracranial process seen. Medications Medications Current Medications Acetaminophen (Acetaminophen 325 Mg Tablet) 650 mg PO Q6H PRN PRN Reason: Headache/Pain Mild Scale (1-3) Last Admin: 10/08/22 20:58 Dose: 650 mg Al Hydroxide/Mg Hydroxide (Magnesium Hydrox/Alum Hydrox 30 Ml Oral.Susp) 30 ml PO Q6H PRN PRN Reason: Heartburn/Nausea Benztropine Mesylate (Benztropine Mesylate 1 Mg Tablet) 1 mg PO BID [facility] Last Admin: 10/09/22 08:00 Dose: 1 mg Bisacodyl (Bisacodyl 5 Mg Tablet.) 10 mg PO DAILY PRN PRN Reason: Constipation Last Admin: 10/07/22 08:29 Dose: 10 mg Buspirone HCl (Buspirone Hcl 10 Mg Tablet) 10 mg PO BID [facility] Last Admin: 10/09/22 08:00 Dose: 10 mg Escitalopram Oxalate (Escitalopram Oxalate 5 Mg Tablet) 5 mg PO DAILY [facility] Last Admin: 10/09/22 08:00 Dose: 5 mg Gabapentin (Gabapentin 300 Mg Capsule) 300 mg PO TID PRN PRN Reason: Anxiety Last Admin: 09/19/22 17:18 Dose: 300 mg Hydroxyzine HCl (Hydroxyzine Hcl 25 Mg Tablet) 25 mg PO Q6H PRN PRN Reason: Anxiety Last Admin: 10/03/22 15:59 Dose: 25 mg Loperamide HCl (Loperamide Hcl 2 Mg Capsule) 4 mg PO Q6H PRN PRN Reason: Loose Stool Magnesium Hydroxide (Milk Of Magnesia 30 Ml Oral.Susp) 30 ml PO DAILY PRN PRN Reason: Constipation Last Admin: 10/02/22 11:28 Dose: 30 ml Mirtazapine (Mirtazapine 30 Mg Tablet) 30 mg PO BEDTIME [facility] Last Admin: 10/08/22 20:50 Dose: 30 mg Olanzapine (Olanzapine 10 Mg Tablet) 20 mg PO BEDTIME [facility] Last Admin: 10/08/22 20:50 Dose: 20 mg Oxcarbazepine (Oxcarbazepine 150 Mg Tablet) 150 mg PO TID [facility] Last Admin: 10/09/22 08:00 Dose: 150 mg Prazosin HCl (Prazosin Hcl 1 Mg Capsule) 2 mg PO BEDTIME [facility]; Protocol Last Admin: 10/08/22 20:50 Dose: 2 mg Trazodone HCl (Trazodone Hcl 50 Mg Tablet) 50 mg PO BEDTIME PRN PRN Reason: Insomnia Allergies Allergies Allergy/AdvReac Type Severity Reaction Status Date / Time aspirin [ASA] Allergy Severe Anaphylaxis Verified 09/22/22 09:22 Penicillins Allergy Severe Anaphylaxis Verified 09/22/22 09:22 Sulfa (Sulfonamide Allergy Difficulty Verified 03/17/22 12:18 Antibiotics) Breathing haloperidol [From Haldol] AdvReac Severe eps, td Verified 09/22/22 09:22 aripiprazole [From Abilify] AdvReac eps,td Verified 09/20/22 15:59 Assessment & Plan Assessment & Plan (1) PTSD (post-traumatic stress disorder): Status: Acute Code(s): F43.10 - Post-traumatic stress disorder, unspecified (2) MCI (mild cognitive impairment): Status: Acute Code(s): G31.84 - Mild cognitive impairment of uncertain or unknown etiology (3) Depression, major, recurrent, severe with psychosis: Status: Acute Code(s): F33.3 - Major depressive disorder, recurrent, severe with psychotic symptoms Plan 56 yo female, hx PTSD, depression, MCI Sx. Pt has had a difficult year-loss of mother, aunt. She needed to testify at a parole board hearing to keep her sister's killer incarcerated. She has not had PTSD focused care per family and sx have become overwhelming with recent MCI sx and fainting-eval in process for seizures, tumor. 10/01 patient remains depressed; she says she is ready to have ECT. Will reach out to primary team to see if this can start on Monday since patient's ECT this past Monday was postponed due to canceled family meeting. 10/02 continue current treatment plan; primary team to further discuss ECT 10/03/22: Pt given written information in [employer] [place] to review regarding ECT. Daughter remains with illness, fever. States she wants to come in on or Monday to review decision for ECT 10/04/22: Pt is opposed to ECT at this time as she reports her daughter is opposed. She told me I would be a vegetable if I had the treatment. 10/05/22: Lexapro 5 mg daily 10/06/22: Hopefully family will agree to a meeting to discuss treatment options. Continue Lexapro Dulcolax prn. 10/07/22: Family meeting 10/11/22 11 am Decrease Olanzapine to 20 mg hs Discontinue Risperdal Decrease Benztropine to 1 mg bid 10/08/2022: Continue current regimen and plans. 10/09: Continue current regimen and plans Plan: continue current regime monitor, allow pt to settle in collateral contact continue diagnostics aftercare planning. Reason for contiued inpatient stay Substantial Risk for: med/psych decompensation Time Spent With Patient Time: Total time managing care of this patient today ____ minutes.
[2022-10-09 08:25] VITALS: BP 107/71; PULSE 88; RESP 16; TEMP 36.1; O2SAT 99
[2022-10-09 20:57] VITALS: BP 91/50; PULSE 72; RESP 14; TEMP 36.1
[2022-10-09] MEDS: Mirtazapine 30 MG TABLET PO (20:59)
[2022-10-09] MEDS: OLANZapine 10 MG TABLET 20 MG PO (20:59)
--- NOTE | 2022-10-10 08:04 | P.PNPSI_ITS ---
Subjective Subjective Date of Service: 10/10/22 Reason For Visit: Depression w/ Psychosis, SI Subjective Notes: Conditional Voluntary Healthcare Proxy: No Guardianship: No Medical Problems Affecting Mental Status: No Interim History: Patient was seen and discussed in rounds today. Records and plans reviewed. She has been mostly in her room, guarded but cooperative and has been medication and meal compliant. No active SI. Slept okay. No complaints. No active SI. ECT is being considered, to be discussed this week with family. No changes were made today Review of Systems Review of Systems Yes all other systems are reviewed and are negative Constitutional: Reports as per HPI Diagnostics Vital Signs (24Hr): Vital Signs - 24 hr 10/09/22 08:25 10/09/22 20:57 Temperature 96.9 F 97 F Pulse Rate 88 72 Respiratory Rate 16 14 Blood Pressure 107/71 91/50 L Pulse Oximetry 99 Oxygen Delivery Method Room Air BMI result Body Mass Index 28.7 Labs 09/30/22 10:22 09/30/22 10:58 Imaging Radiology Impressions: ITS Impressions Head CT 09/22/22 08:14 IMPRESSION: No acute intracranial process seen. Medications Medications Current Medications Acetaminophen (Acetaminophen 325 Mg Tablet) 650 mg PO Q6H PRN PRN Reason: Headache/Pain Mild Scale (1-3) Last Admin: 10/08/22 20:58 Dose: 650 mg Al Hydroxide/Mg Hydroxide (Magnesium Hydrox/Alum Hydrox 30 Ml Oral.Susp) 30 ml PO Q6H PRN PRN Reason: Heartburn/Nausea Benztropine Mesylate (Benztropine Mesylate 1 Mg Tablet) 1 mg PO BID [facility] Last Admin: 10/09/22 20:59 Dose: 1 mg Bisacodyl (Bisacodyl 5 Mg Tablet.Dr) 10 mg PO DAILY PRN PRN Reason: Constipation Last Admin: 10/07/22 08:29 Dose: 10 mg Buspirone HCl (Buspirone Hcl 10 Mg Tablet) 10 mg PO BID [facility] Last Admin: 10/09/22 20:59 Dose: 10 mg Escitalopram Oxalate (Escitalopram Oxalate 5 Mg Tablet) 5 mg PO DAILY [facility] Last Admin: 10/09/22 08:00 Dose: 5 mg Gabapentin (Gabapentin 300 Mg Capsule) 300 mg PO TID PRN PRN Reason: Anxiety Last Admin: 09/19/22 17:18 Dose: 300 mg Hydroxyzine HCl (Hydroxyzine Hcl 25 Mg Tablet) 25 mg PO Q6H PRN PRN Reason: Anxiety Last Admin: 10/03/22 15:59 Dose: 25 mg Loperamide HCl (Loperamide Hcl 2 Mg Capsule) 4 mg PO Q6H PRN PRN Reason: Loose Stool Magnesium Hydroxide (Milk Of Magnesia 30 Ml Oral.Susp) 30 ml PO DAILY PRN PRN Reason: Constipation Last Admin: 10/02/22 11:28 Dose: 30 ml Mirtazapine (Mirtazapine 30 Mg Tablet) 30 mg PO BEDTIME [facility] Last Admin: 10/09/22 20:59 Dose: 30 mg Olanzapine (Olanzapine 10 Mg Tablet) 20 mg PO BEDTIME [facility] Last Admin: 10/09/22 20:59 Dose: 20 mg Oxcarbazepine (Oxcarbazepine 150 Mg Tablet) 150 mg PO TID [facility] Last Admin: 10/09/22 20:59 Dose: 150 mg Prazosin HCl (Prazosin Hcl 1 Mg Capsule) 2 mg PO BEDTIME [facility]; Protocol Last Admin: 10/09/22 21:01 Dose: Not Given Trazodone HCl (Trazodone Hcl 50 Mg Tablet) 50 mg PO BEDTIME PRN PRN Reason: Insomnia Allergies Allergies Allergy/AdvReac Type Severity Reaction Status Date / Time aspirin [ASA] Allergy Severe Anaphylaxis Verified 09/22/22 09:22 Penicillins Allergy Severe Anaphylaxis Verified 09/22/22 09:22 Sulfa (Sulfonamide Allergy Difficulty Verified 03/17/22 12:18 Antibiotics) Breathing haloperidol [From Haldol] AdvReac Severe eps, td Verified 09/22/22 09:22 aripiprazole [From Abilify] AdvReac eps,td Verified 09/20/22 15:59 Assessment & Plan Assessment & Plan (1) PTSD (post-traumatic stress disorder): Status: Acute Code(s): F43.10 - Post-traumatic stress disorder, unspecified (2) MCI (mild cognitive impairment): Status: Acute Code(s): G31.84 - Mild cognitive impairment of uncertain or unknown etiology (3) Depression, major, recurrent, severe with psychosis: Status: Acute Code(s): F33.3 - Major depressive disorder, recurrent, severe with psychotic symptoms Plan 56 yo female, hx PTSD, depression, MCI Sx. Pt has had a difficult year-loss of mother, aunt. She needed to testify at a parole board hearing to keep her sister's killer incarcerated. She has not had PTSD focused care per family and sx have become overwhelming with recent MCI sx and fainting-eval in process for seizures, tumor. 10/01 patient remains depressed; she says she is ready to have ECT. Will reach out to primary team to see if this can start on Monday since patient's ECT this past Monday was postponed due to canceled family meeting. 10/02 continue current treatment plan; primary team to further discuss ECT 10/03/22: Pt given written information in [place] to review regarding ECT. Daughter remains with illness, fever. States she wants to come in on or Monday to review decision for ECT 10/04/22: Pt is opposed to ECT at this time as she reports her daughter is opposed. She told me I would be a vegetable if I had the treatment. 10/05/22: Lexapro 5 mg daily 10/06/22: Hopefully family will agree to a meeting to discuss treatment options. Continue Lexapro Dulcolax prn. 10/07/22: Family meeting 10/11/22 11 am Decrease Olanzapine to 20 mg hs Discontinue Risperdal Decrease Benztropine to 1 mg bid 10/08/2022: Continue current regimen and plans. 10/09: Continue current regimen and plans 10/10: Continue current regimen and plans Plan: continue current regime monitor, allow pt to settle in collateral contact continue diagnostics aftercare planning. Reason for contiued inpatient stay Substantial Risk for: med/psych decompensation Time Spent With Patient Time: Total time managing care of this patient today ____ minutes.
[2022-10-10] MEDS: Benztropine Mesylate 1 MG TABLET PO ×2 (08:29→20:14)
[2022-10-10] MEDS: busPIRone HCl 10 MG TABLET PO ×2 (08:29→20:14)
[2022-10-10] MEDS: OXcarbazepine 150 MG TABLET PO ×3 (08:29→20:14)
[2022-10-10] MEDS: Escitalopram Oxalate 5 MG TABLET PO (08:29)
[2022-10-10 08:52] VITALS: BP 118/75; PULSE 72; RESP 18; TEMP 36.7; O2SAT 97
[2022-10-10 16:35] VITALS: BP 115/70; PULSE 63; TEMP 36.6; O2SAT 97
[2022-10-10] MEDS: Mirtazapine 30 MG TABLET PO (20:14)
[2022-10-10] MEDS: Prazosin HCL 1 MG CAPSULE 2 MG PO (20:14)
[2022-10-10] MEDS: OLANZapine 10 MG TABLET 20 MG PO (20:14)
[2022-10-11] MEDS: Escitalopram Oxalate 5 MG TABLET PO (08:21)
[2022-10-11] MEDS: OXcarbazepine 150 MG TABLET PO ×3 (08:21→20:58)
[2022-10-11] MEDS: Benztropine Mesylate 1 MG TABLET PO ×2 (08:21→20:58)
[2022-10-11] MEDS: busPIRone HCl 10 MG TABLET PO ×2 (08:21→20:58)
[2022-10-11 08:30] VITALS: BP 121/71; PULSE 63; RESP 18; TEMP 36.1; O2SAT 97
--- NOTE | 2022-10-11 10:46 | HO.PSYCHPN ---
Subjective Subjective Date of Service: 10/11/22 Reason For Visit: Depression w/ Psychosis, SI Subjective Notes: Conditional Voluntary Healthcare Proxy: No Guardianship: No Medical Problems Affecting Mental Status: No Interim History: Met with pt, her children, Kevin BURROUGHS and Dr. Huang. Pt's hospital course discussed. ECT as a treatment option discussed along with children's concerns. 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 After this flash she reports her brain feels different and she feels spacey . This has occurred more than once per day, less often since being in hospital. After this occurs, pt needs to lie down, she feels weak and at times at home has fainted, falled. Dr. Huang discussed asking Dr. Ramos to see pt again, and the possibility of partial complex seizures were discussed. Dr. Ramos met with pt and children, recommending a 48 hour EEG. Pt discussed her thoughts that she needs to attend court to support her sister. Family and team attempted to reassure pt and provide facts regarding her not having any current responsibility to the court. Medication Compliance: Yes Side effects from medications: No Attending Groups: Intermittent Review of Systems Acute medical concerns: No Medical Review of Systems: unchanged Mental Status Exam Mental Status Exam Patient Appearance: Appropriate Patient Orientation: Person and Place Level of Consciousness: Alert Patient Behavior: Appropriate, Talkative, Cooperative and Good Eye Contact Mood Description: Withdrawn Affect Description: Withdrawn Patient Cognition Impaired: No Ability to Follow Directions: Good Speech Pattern: Spontaneous Speech Memory Description: Episodic Impaired Hallucinations: None Delusions: Present Perceptual Disturbances: Depersonalization and Derealization Thought Process: Goal Oriented Thought Content: positive for Perseveration, positive for Preoccupation and positive for Slowed Thinking Depressive Symptoms: Increased Anxiety, Insomnia and Difficulty Sleeping Judgement: Fair Diagnostics Vital Signs (24Hr): Vital Signs - 24 hr 10/10/22 16:35 10/11/22 08:30 Temperature 98 F 97.0 F Pulse Rate 63 63 Respiratory Rate 18 Blood Pressure 115/70 121/71 Pulse Oximetry 97 97 Oxygen Delivery Method Room Air Room Air BMI result Body Mass Index 28.7 Labs 09/30/22 10:22 09/30/22 10:58 Imaging Radiology Impressions: ITS Impressions Head CT 09/22/22 08:14 IMPRESSION: No acute intracranial process seen. Medications Medications Current Medications Acetaminophen (Acetaminophen 325 Mg Tablet) 650 mg PO Q6H PRN PRN Reason: Headache/Pain Mild Scale (1-3) Last Admin: 10/08/22 20:58 Dose: 650 mg Al Hydroxide/Mg Hydroxide (Magnesium Hydrox/Alum Hydrox 30 Ml Oral.Susp) 30 ml PO Q6H PRN PRN Reason: Heartburn/Nausea Benztropine Mesylate (Benztropine Mesylate 1 Mg Tablet) 1 mg PO BID MALLORY Last Admin: 10/11/22 08:21 Dose: 1 mg Bisacodyl (Bisacodyl 5 Mg Tablet.Dr) 10 mg PO DAILY PRN PRN Reason: Constipation Last Admin: 10/07/22 08:29 Dose: 10 mg Buspirone HCl (Buspirone Hcl 10 Mg Tablet) 10 mg PO BID MALLORY Last Admin: 10/11/22 08:21 Dose: 10 mg Escitalopram Oxalate (Escitalopram Oxalate 5 Mg Tablet) 5 mg PO DAILY MALLORY Last Admin: 10/11/22 08:21 Dose: 5 mg Gabapentin (Gabapentin 300 Mg Capsule) 300 mg PO TID PRN PRN Reason: Anxiety Last Admin: 09/19/22 17:18 Dose: 300 mg Hydroxyzine HCl (Hydroxyzine Hcl 25 Mg Tablet) 25 mg PO Q6H PRN PRN Reason: Anxiety Last Admin: 10/03/22 15:59 Dose: 25 mg Loperamide HCl (Loperamide Hcl 2 Mg Capsule) 4 mg PO Q6H PRN PRN Reason: Loose Stool Magnesium Hydroxide (Milk Of Magnesia 30 Ml Oral.Susp) 30 ml PO DAILY PRN PRN Reason: Constipation Last Admin: 10/02/22 11:28 Dose: 30 ml Mirtazapine (Mirtazapine 30 Mg Tablet) 30 mg PO BEDTIME MALLORY Last Admin: 10/10/22 20:14 Dose: 30 mg Olanzapine (Olanzapine 10 Mg Tablet) 20 mg PO BEDTIME MALLORY Last Admin: 10/10/22 20:14 Dose: 20 mg Oxcarbazepine (Oxcarbazepine 150 Mg Tablet) 150 mg PO TID MALLORY Last Admin: 10/11/22 08:21 Dose: 150 mg Prazosin HCl (Prazosin Hcl 1 Mg Capsule) 2 mg PO BEDTIME MALLORY; Protocol Last Admin: 10/10/22 20:14 Dose: 2 mg Trazodone HCl (Trazodone Hcl 50 Mg Tablet) 50 mg PO BEDTIME PRN PRN Reason: Insomnia Allergies Allergies Allergy/AdvReac Type Severity Reaction Status Date / Time aspirin [ASA] Allergy Severe Anaphylaxis Verified 09/22/22 09:22 Penicillins Allergy Severe Anaphylaxis Verified 09/22/22 09:22 Sulfa (Sulfonamide Allergy Difficulty Verified 03/17/22 12:18 Antibiotics) Breathing haloperidol [From Haldol] AdvReac Severe eps, td Verified 09/22/22 09:22 aripiprazole [From Abilify] AdvReac eps,td Verified 09/20/22 15:59 Assessment & Plan Assessment & Plan (1) PTSD (post-traumatic stress disorder): Status: Acute Code(s): F43.10 - Post-traumatic stress disorder, unspecified (2) MCI (mild cognitive impairment): Status: Acute Code(s): G31.84 - Mild cognitive impairment of uncertain or unknown etiology (3) Depression, major, recurrent, severe with psychosis: Status: Acute Code(s): F33.3 - Major depressive disorder, recurrent, severe with psychotic symptoms Plan 56 yo female, hx PTSD, depression, MCI Sx. Pt has had a difficult year-loss of mother, aunt. She needed to testify at a parole board hearing to keep her sister's killer incarcerated. She has not had PTSD focused care per family and sx have become overwhelming with recent MCI sx and fainting-eval in process for seizures, tumor. 10/01 patient remains depressed; she says she is ready to have ECT. Will reach out to primary team to see if this can start on Monday since patient's ECT this past Monday was postponed due to canceled family meeting. 10/02 continue current treatment plan; primary team to further discuss ECT 10/03/22: Pt given written information in Armenian to review regarding ECT. Daughter remains with illness, fever. States she wants to come in on or Monday to review decision for ECT 10/04/22: Pt is opposed to ECT at this time as she reports her daughter is opposed. She told me I would be a vegetable if I had the treatment. 10/05/22: Lexapro 5 mg daily 10/06/22: Hopefully family will agree to a meeting to discuss treatment options. Continue Lexapro Dulcolax prn. 10/07/22: Family meeting 10/11/22 11 am Decrease Olanzapine to 20 mg hs Discontinue Risperdal Decrease Benztropine to 1 mg bid 10/08/2022: Continue current regimen and plans. 10/09: Continue current regimen and plans 10/10: Continue current regimen and plans Plan: continue current regime monitor, allow pt to settle in collateral contact continue diagnostics aftercare planning. 10/11/22: Discharge planning, currently family declines ECT Arrange 48 hour EEG. Patient educated on: ECT and therapeutic strategies Guardian/Caregiver educated on: ECT and therapeutic strategies Informed Consent: further education needed Reason for contiued inpatient stay Substantial Risk for: stable for discharge Time Spent With Patient Time: Total time managing care of this patient today ____ minutes.
--- NOTE | 2022-10-11 12:17 | PM.NEUROCN ---
History of Present Illness Data of Consult Service Date: 10/11/22 Primary Care Provider: Unknown Physician HPI Reason for consult: Seizure disorder 56 years old woman who I had seen few days ago and was asked to see her again. This time I saw her with her children. She reported that she was having brief episodes resulting in seeing flashes of light associated with dizzy and spacey feeling and making her confused. There was no obvious trigger and they were not happening every day. Each episode was lasting for few seconds. There was no pain. Review of Systems Review of Systems: No headache PMFSH Past Medical History Medical History Depression, major, recurrent, severe with psychosis PTSD (post-traumatic stress disorder) Social History Social History Household Members: Family Housing: Apartment Do you presently have visiting nurse or other home services: No Alcohol intake: unknown Patient Tobacco Use Status: Former Tobacco user Tobacco use type: Cigarette Smoked in Last 30 Days: No e-Cigarette/Vaping Use: Never Used Patient Interested in Nicotine Replacement: No Patient Given Instructions on How to Stop Smoking: No Second Hand Smoke Exposure: No Use of substances other than those prescribed or required for medical reasons: No Currently Displaying Signs/Symptoms of Drug Intoxication Withdrawal: No [facility] Practices: none currently Advance Directives: No Advance Directives Information Provided: No Healthcare Proxy: No Guardian: No Do you have thoughts of harming others: None Do you have a plan to hurt others: No Plan Recently lost weight without trying: Yes How much weight loss: 34pounds or more Eating poorly because of decreased appetite: Yes Nutrition screen score: 7 Patient : No : No Poor oral hygiene: No service: No Sexual orientation: Straight/Heterosexual Meds Allergies Allergy/AdvReac Type Severity Reaction Status Date / Time aspirin [ASA] Allergy Severe Anaphylaxis Verified 09/22/22 09:22 Penicillins Allergy Severe Anaphylaxis Verified 09/22/22 09:22 Sulfa (Sulfonamide Allergy Difficulty Verified 03/17/22 12:18 Antibiotics) Breathing haloperidol [From Haldol] AdvReac Severe eps, td Verified 09/22/22 09:22 aripiprazole [From Abilify] AdvReac eps,td Verified 09/20/22 15:59 Active Medications: Current Medications Acetaminophen (Acetaminophen 325 Mg Tablet) 650 mg PO Q6H PRN PRN Reason: Headache/Pain Mild Scale (1-3) Last Admin: 10/08/22 20:58 Dose: 650 mg Al Hydroxide/Mg Hydroxide (Magnesium Hydrox/Alum Hydrox 30 Ml Oral.Susp) 30 ml PO Q6H PRN PRN Reason: Heartburn/Nausea Benztropine Mesylate (Benztropine Mesylate 1 Mg Tablet) 1 mg PO BID MALLORY Last Admin: 10/11/22 08:21 Dose: 1 mg Bisacodyl (Bisacodyl 5 Mg Tablet.Dr) 10 mg PO DAILY PRN PRN Reason: Constipation Last Admin: 10/07/22 08:29 Dose: 10 mg Buspirone HCl (Buspirone Hcl 10 Mg Tablet) 10 mg PO BID MALLORY Last Admin: 10/11/22 08:21 Dose: 10 mg Escitalopram Oxalate (Escitalopram Oxalate 5 Mg Tablet) 5 mg PO DAILY MALLORY Last Admin: 10/11/22 08:21 Dose: 5 mg Gabapentin (Gabapentin 300 Mg Capsule) 300 mg PO TID PRN PRN Reason: Anxiety Last Admin: 09/19/22 17:18 Dose: 300 mg Hydroxyzine HCl (Hydroxyzine Hcl 25 Mg Tablet) 25 mg PO Q6H PRN PRN Reason: Anxiety Last Admin: 10/03/22 15:59 Dose: 25 mg Loperamide HCl (Loperamide Hcl 2 Mg Capsule) 4 mg PO Q6H PRN PRN Reason: Loose Stool Magnesium Hydroxide (Milk Of Magnesia 30 Ml Oral.Susp) 30 ml PO DAILY PRN PRN Reason: Constipation Last Admin: 10/02/22 11:28 Dose: 30 ml Mirtazapine (Mirtazapine 30 Mg Tablet) 30 mg PO BEDTIME MALLORY Last Admin: 10/10/22 20:14 Dose: 30 mg Olanzapine (Olanzapine 10 Mg Tablet) 20 mg PO BEDTIME MALLORY Last Admin: 10/10/22 20:14 Dose: 20 mg Oxcarbazepine (Oxcarbazepine 150 Mg Tablet) 150 mg PO TID MALLORY Last Admin: 10/11/22 08:21 Dose: 150 mg Prazosin HCl (Prazosin Hcl 1 Mg Capsule) 2 mg PO BEDTIME MALLORY; Protocol Last Admin: 10/10/22 20:14 Dose: 2 mg Trazodone HCl (Trazodone Hcl 50 Mg Tablet) 50 mg PO BEDTIME PRN PRN Reason: Insomnia Home Medications Medication Instructions Recorded Confirmed Last Taken Type aripiprazole 20 mg tablet 1 tab PO BEDTIME depressive 09/16/22 09/17/22 Unknown History disorder benztropine 1 mg tablet 1 tab PO TID 09/16/22 09/17/22 Unknown History buspirone 10 mg tablet 1 tab PO BID 09/16/22 09/16/22 Unknown History desvenlafaxine succinate 50 mg 1 tab PO DAILY 09/16/22 09/17/22 Unknown History tablet,extended release 24 hr gabapentin 300 mg capsule 1 cap PO TID PRN Anxiety 09/16/22 09/16/22 Unknown History mirtazapine 30 mg tablet 1 tab PO BEDTIME 09/16/22 09/16/22 Unknown History oxcarbazepine 300 mg tablet 1 tab PO BID 09/16/22 09/16/22 Unknown History prazosin 1 mg capsule 2 cap PO BEDTIME 09/16/22 09/16/22 Unknown History prazosin 5 mg capsule 1 cap PO BEDTIME 09/16/22 09/16/22 Unknown History risperidone 0.5 mg tablet 1 tab PO BID PRN Anxiety 09/17/22 09/17/22 Unknown History Physical Exam Vital Signs: Vital Signs: Last Vital Signs Temp 97.0 F 10/11/22 08:30 Pulse 63 10/11/22 08:30 Resp 18 10/11/22 08:30 BP 121/71 10/11/22 08:30 Pulse Ox 97 10/11/22 08:30 O2 Del Method 10/11/22 08:30 BMI result Body Mass Index 28.7 Neuro: Other: Alert and awake with normal spontaneity of speech fluency comprehension and somewhat flat affect. Results Labs 09/30/22 10:22 09/30/22 10:58 Assessment and Plan (1) Seizure disorder: Status: Acute 56 years old woman who is reporting symptoms suggestive of complex partial seizure disorder. She also is on oxcarbazepine, which is 1 of the treatments. Routine EEG has not reveal any significant abnormality. But we did not have any episode during the EEG. Usually, we do ambulatory long-term EEG to make a definitive diagnosis or ideally to catch 1 of these episodes while having EEG. It can be done in hospital by ordering a 48 hour EEG. Otherwise it can be done as an outpatient. As far as treatment with electroconvulsive therapy is concerned, it can be used if clinically indicated. Time Spent With Patient Time: Total time managing care of this patient today ____ minutes. Procedures Date of Service Date of Service: 10/11/22
[2022-10-11 17:36] VITALS: BP 112/71; PULSE 84; RESP 16; TEMP 36.2; O2SAT 98
[2022-10-11] MEDS: Prazosin HCL 1 MG CAPSULE 2 MG PO (20:57)
[2022-10-11] MEDS: OLANZapine 10 MG TABLET 20 MG PO (20:58)
[2022-10-11] MEDS: traZODone HCL 50 MG TABLET PO (20:58)
[2022-10-11] MEDS: hydrOXYzine HCL 25 MG TABLET PO (20:58)
[2022-10-11] MEDS: Mirtazapine 30 MG TABLET PO (20:58)
[2022-10-12 08:15] VITALS: BP 127/80; PULSE 94; RESP 18; TEMP 36.2; O2SAT 97
[2022-10-12] MEDS: Escitalopram Oxalate 10 MG TABLET PO (08:28)
[2022-10-12] MEDS: busPIRone HCl 10 MG TABLET PO (08:28)
[2022-10-12] MEDS: Benztropine Mesylate 1 MG TABLET PO (08:28)
[2022-10-12] MEDS: OXcarbazepine 150 MG TABLET PO (08:28)
--- NOTE | 2022-10-12 15:15 | P.DS_ITS ---
DS: Providers Provider Date of Service: 10/12/22 Date of admission: 09/19/22 15:41 Date of discharge: 10/12/22 Primary care physician: Unknown Physician Admitting clinician: Rufina Echols Attending physician on admission: Lisandro Huang Consults: 09/28/22 09:41 Consult to Psychiatry Routine Consulting Provider: [facility] Reason for consultation: ECT Has provider been notified: No 09/29/22 09:34 Consult to Neurology Routine Consulting Provider: [facility] Reason for consultation: depression-pre ect, ?dementia Has provider been notified: No 09/30/22 09:46 Consult to Hospitalist Routine Consulting Provider: Hospitalist Reason For Exam: ect pre op Attending physician on discharge: Lisandro Huang Discharging clinician: Rufina Echols DS: Diagnosis Discharge Diagnosis (1) Seizure disorder: Status: Deleted (2) PTSD (post-traumatic stress disorder): Status: Acute (3) Depression, major, recurrent, severe with psychosis: Status: Acute (4) MCI (mild cognitive impairment): Status: Acute DS: Medications Discharge Medications Home Medications: Previous Rx's Medication Instructions Recorded benztropine 1 mg tablet 1 mg PO BID #60 tabs 10/12/22 buspirone 10 mg tablet 1 tab PO BID #60 tabs 10/12/22 escitalopram oxalate 10 mg tablet 10 mg PO DAILY #30 tabs 10/12/22 gabapentin 300 mg capsule 1 cap PO TID PRN Anxiety #90 caps 10/12/22 mirtazapine 30 mg tablet 1 tab PO BEDTIME #30 tabs 10/12/22 olanzapine 10 mg tablet 20 mg PO BEDTIME #30 tabs 10/12/22 oxcarbazepine 150 mg tablet 150 mg PO TID #90 tabs 10/12/22 prazosin 1 mg capsule 2 cap PO BEDTIME #30 caps 10/12/22 Mental Status Exam Mental Status Exam Patient Appearance: Appropriate Patient Orientation: Person and Place Level of Consciousness: Alert Patient Behavior: Appropriate, Talkative, Cooperative and Good Eye Contact Mood Description: Withdrawn Affect Description: Withdrawn Patient Cognition Impaired: No Ability to Follow Directions: Good Speech Pattern: Spontaneous Speech Memory Description: Episodic Impaired Hallucinations: None Delusions: Present Perceptual Disturbances: Depersonalization and Derealization Thought Process: Goal Oriented Thought Content: positive for Perseveration, positive for Preoccupation and positive for Slowed Thinking Depressive Symptoms: Increased Anxiety, Insomnia and Difficulty Sleeping Judgement: Fair Data Imaging Diagnostic Imaging Impressions Head CT 09/22/22 08:14 IMPRESSION: No acute intracranial process seen. DS: Summary Hospital Course Hospital Course: Admission to adult psychiatry for exacerbation of PTSD, Recurrent Major Depression, MCI, and Rule out Seizures. Abilify, Risperdal and Pristiq were discontinued. Escitalopram, Olanzapine, Benztropine were initiated. Trileptal was titrated as was Prazosin. Buspirone, Gabapentin, and Mirtazapine were cont inued. ECT consult was completed-pt found appropriate for ECT, however there is a question of seizure activity. Pt seen by Dr. Ramos of neurology who recommended a 48 hour EEG. This is scheduled with [facility] for November 28, 2022 10:45a.m. and November 29, 2022. When completed, pt will make an appointment to follow up with Dr. Ramos and will then call Dr. Huang's office to schedule ECT treatments on an out patient basis if she is cleared neurologically. Family approves of this plan. Pt to call and or return as needed. Time spent discussing smoking cessation with patient: 3 to 10 minutes Status at Discharge Functional status at discharge: independent ambulation Overall status at discharge: patient is progressing back to baseline Time Spent with Patient Time attestation: Total time managing care of this patient today ____ minutes. Time spent: Greater than 30 minutes Discharge Plan Discharge Anticipated Discharge Date/Time: 10/12/22 09:22 Patient Disposition: Home, Self-Care Discharge Diagnosis: PTSD Depression MCI Rule out Seizures Referrals: Ksenia Villalobos [Other] - 10/20/22 11:00 am (Follow-up discharge appointment with therapist Appointment in office at [facility]) Quita Lambert [Other] - 10/13/22 9:00 am (Follow-up discharge appointment with outpatient psychiatric medication provider Appointment is by tele-health) IVA YATES [Other] - 10/28/22 9:40 am (IN OFFICE) [facility] [Other] - 1 Week (Referral for [facility] services) Discharge Medications: New oxcarbazepine 150 mg Tablet 150 mg PO TID Qty: 90 0RF olanzapine 10 mg Tablet 20 mg PO BEDTIME Qty: 30 0RF benztropine 1 mg Tablet 1 mg PO BID Qty: 60 0RF escitalopram oxalate 10 mg Tablet 10 mg PO DAILY Qty: 30 0RF Continued prazosin 1 mg capsule 2 cap PO BEDTIME Qty: 30 0RF mirtazapine 30 mg tablet 1 tab PO BEDTIME Qty: 30 0RF buspirone 10 mg tablet 1 tab PO BID Qty: 60 0RF gabapentin 300 mg capsule 1 cap PO TID PRN (Reason: Anxiety) Qty: 90 0RF Discontinued oxcarbazepine 300 mg tablet 1 tab PO BID prazosin 5 mg capsule 1 cap PO BEDTIME benztropine 1 mg tablet 1 tab PO TID aripiprazole 20 mg tablet 1 tab PO BEDTIME desvenlafaxine succinate 50 mg tablet extended release 24 hr 1 tab PO DAILY risperidone 0.5 mg tablet 1 tab PO BID PRN (Reason: Anxiety) Discharge Orders: Discharge Order (Routine); Ordered 10/12/22 Ordered By: Rufina Echols Diet: Advance to usual diet Activity on Discharge: As tolerated Stand Alone Forms: Patient Portal Discharge page, Community Support Care Plan Goals: Stable mood and behaviors Health Concerns: Mood and behavioral stability Plan of Treatment: Follow up with out patient providers Take medications as directed Assessment: non suicidal, non homicidal non manic non psychotic Discharge Date/Time: 10/12/22 15:06
== END 2022-10-12 15:06 | disposition home or self-care (01) | DRG 751 ==
LOC: HO.ED 23:28 → HO.PM5 09-19 15:44
PROVIDERS: Psychiatry & Neurology Psychiatry; Admitting Provider Psychiatry & Neurology Psychiatry; Emergency Provider Emergency Medicine; Visit Provider Clinical Nurse Specialist Psychiatric/Mental Health, Adult
DX: F33.3 Major depressive disorder, recurrent, severe with psychotic symptoms (principal); R45.851 Suicidal ideations; G40.909 Epilepsy, unspecified, not intractable, without status epilepticus; F43.10 Post-traumatic stress disorder, unspecified; G31.84 Mild cognitive impairment of uncertain or unknown etiology; Z20.822 Contact with and (suspected) exposure to COVID-19; Z87.891 Personal history of nicotine dependence; Z88.0 Allergy status to penicillin; Z88.2 Allergy status to sulfonamides; Z88.8 Allergy status to other drugs, medicaments and biological substances; Z79.899 Other long term (current) drug therapy
CPT/HCPCS: 36415; 70450; 80053; 80061; 80307; 82077; 82248; 82607; 82746; 83036; 83690; 83735; 84439; 84443; 85025; 85652; 86140; 86780; 87389; 87635; 93005; 95816; 97161; 99285; S9485

== ENCOUNTER 2023-06-26 13:34 | Outpatient (REF) | payer OTHER, SELFPAY ==
[2023-06-26 15:35] LABS: Erythrocyte Sedimentation Rate 16 MM/HR (0-20)
[2023-06-27 12:48] LABS: Lyme Abs Screen <0.90 index
[2023-06-30 07:44] LABS: Anti Nuclear Antibody Screen NEGATIVE (NEGATIVE)
== END 2023-06-26 13:35 | disposition home or self-care (01) ==
LOC: HO.LAB 13:34
PROVIDERS: Visit Provider Psychiatry & Neurology Neurology
DX: G93.40 Encephalopathy, unspecified (principal)
CPT/HCPCS: 36415; 85652; 86038; 86617; 86618